=== PATIENT | male | born 1935 | race Caucasian/White ===

== ENCOUNTER 2020-06-16 09:47 | Outpatient (CLI) | payer MEDICARE, BC, SELFPAY ==
--- NOTE | ~2020-06-16 | XR_ITS ---
XR chest 2V DATE: 06/16/2020 10:03 INDICATION: Covid 19. History of smoking. TECHNIQUE: PA and lateral views COMPARISON: None FINDINGS: Mild bilateral lower lung infiltrate and/or atelectasis. Approximately 1 cm irregular opacity overlies the right upper lung. CT thorax is recommended. Mild bilateral apical capping. No pleural effusion or pulmonary vascular congestion or pneumothorax. Normal heart size. There is aortic calcification, ectasia and mild unfolding. 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 Degenerative change at the clavicular joints, greater on the right. Osteopenia. IMPRESSION: Approximately 1 cm irregular opacity overlies right upper lung; CT thorax is recommended. Bilateral lower lung infiltrate and/or atelectasis Dr. Orellana telephoned the report including possible right upper lung mass, and CT chest recommendation, to Amy, Electrolysist, on 06/16/2020 at 1015 hours. Reviewed, dictated and finalized at location A. GES SUPERVISOR IMPRESSION: Approximately 1 cm irregular opacity overlies right upper lung; CT thorax is recommended. Bilateral lower lung infiltrate and/or atelectasis Dr. Orellana telephoned the report including possible right upper lung mass, and CT chest recommendation, to Almita ReyesElectrolysist, on 06/16/2020 at 1015 hours .
== END 2020-06-16 09:48 | disposition home or self-care (01) ==
PROVIDERS: PCP Internal Medicine; Visit Provider Internal Medicine
DX: U07.1 COVID-19 (principal); R91.8 Other nonspecific abnormal finding of lung field
CPT/HCPCS: 71046

== ENCOUNTER 2020-07-06 09:08 | Outpatient (CLI) | payer MEDICARE, BC, SELFPAY ==
--- NOTE | ~2020-07-06 | XR_ITS ---
XR chest 2V DATE: 07/06/2020 09:24 INDICATION: Pneumonia TECHNIQUE: PA and lateral views COMPARISON: There are 2 2020 PA and lateral chest FINDINGS: There are increased patchy infiltrates throughout most of the right lung field and in the l eft lower lung field since 06/16/2020 consistent with worsening bilateral pneumonia. Normal heart size. No hilar or mediastinal enlargement. Aortic calcification. Diffuse osteopenia. Diffuse idiopathic skeletal hyperostosis of the thoracic spine. 13 pairs of ribs. IMPRESSION: Increased bilateral pulmonary infiltrates, right greater more extensive than left Reviewed, dictated and finalized at location A. WHAKARURUHAU IMPRESSION: Increased bilateral pulmonary infiltrates, right greater more exten sive than left
== END 2020-07-06 09:09 | disposition home or self-care (01) ==
LOC: ANHIMG 09:15
PROVIDERS: PCP Internal Medicine; Visit Provider Internal Medicine
DX: J18.9 Pneumonia, unspecified organism (principal); R91.8 Other nonspecific abnormal finding of lung field
CPT/HCPCS: 71046

== ENCOUNTER 2020-08-03 08:22 | Outpatient (CLI) | payer MEDICARE, BC, SELFPAY ==
--- NOTE | ~2020-08-03 | XR_ITS ---
XR chest 2V 08/03/2020 08:38 Indication: Follow-up pneumonia Procedure: 2 view chest Comparison: 07/06/2020 Findings: There is improving right upper and bilateral lower lobe pneumonia. No effusion. No pneumoth orax. Chronic apical pleural thickening/scarring. Heart size is normal. Impression: 1: Significant improvement of patchy bilateral pneumonia. Reviewed, dictated and finalized at location A. Impression: 1: Significant improvement of patchy bilateral pneumonia.
== END 2020-08-03 08:23 | disposition home or self-care (01) ==
LOC: ANHIMG 08:26
PROVIDERS: PCP Internal Medicine; Visit Provider Internal Medicine
DX: J18.9 Pneumonia, unspecified organism (principal)
CPT/HCPCS: 71046

== ENCOUNTER 2020-10-06 07:14 | Outpatient (CLI) | payer MEDICARE, BC, SELFPAY ==
--- NOTE | ~2020-10-06 | CT_ITS ---
EXAMINATION: CTA chest PE protocol DATE: 10/06/2020 07:44 INDICATION: History of COVID pneumonia, personal history of nicotine dependence TECHNIQUE: Computed tomography angiography (CTA) of the chest was performed with 100 mL Omnipaque-350 intravenous contrast timed to evaluate the pulmonary arteries. Coronal maximum intensity projection 3D-reconstructions were created by the technologist. The dose-length product (DLP) was 284.88 mGy-cm. Automated exposure control and iterative reconstruction technique were employed. COMPARISON: None. FINDINGS: The pulmonary arteries are well-opacified. There are small emboli in subsegmental branches of the left lower lobe. There is moderate emphysema. The lungs are free of focal airspace opacities. There is dependent atelectasis. No pathologically enlarged thoracic lymph nodes are identified. The h eart size is normal. There is calcified coronary artery atherosclerosis. There are bridging osteophyt es at multiple levels in the spine, consistent with diffuse idiopathic skeletal hyperostosis (DISH). Stones are present in the nondistended gallbladder. IMPRESSION: 1. Small pulmonary emboli in subsegmental branches of the left lower lobe. These findings were discus sed with Dr. Samaria Rosales MD at 0942 hours on 10/06/2020. Patient reportedly had a known diagnosis of left lower lobe pulmonary emboli in June 2020 and these likely represent resolving emboli. Reviewed, dictated and finalized at location A. IMPRESSION: 1. Small pulmonary emboli in subsegmental branches of the left lower lobe. Thes e findings were discussed with Dr. Samaria Rosales MD at 0942 hours on 10/07/19. Patient reportedly had a known diagnosis of left lower lobe pulmonary embol i in June 2020 and these likely represent resolving emboli.
[2020-10-06 07:39] LABS: Estimated Glomerular Filt Rate > 60
== END 2020-10-06 07:15 | disposition home or self-care (01) ==
PROVIDERS: PCP Internal Medicine; Visit Provider Internal Medicine
DX: I26.99 Other pulmonary embolism without acute cor pulmonale (principal)
CPT/HCPCS: 71275; Q9967

== ENCOUNTER 2021-10-22 10:34 | Outpatient (CLI) | payer MEDICARE, BC, SELFPAY ==
--- NOTE | ~2021-10-22 | CT_ITS ---
EXAMINATION: CT diagnostic chest wo con DATE: 10/22/2021 10:52 INDICATION: Solitary pulmonary nodule TECHNIQUE: Computed tomography (CT) of the chest was performed without intravenous contrast. Automate d exposure control and iterative reconstruction technique were employed. Exam dose: 124.58 mGy-cm to mary exam DLP. COMPARISON: 10/06/2020 CT pulmonary scan 08/03/2020 and 07/06/2020 2 view chest 06/16/2020 2 view chest FINDINGS: Bilateral apical pulmonary scarring., Mild to moderate emphysematous changes are noted, most prominent in the right upper lobe. No pulmonary infiltrate or consolidation or pulmonary mass lesion is detected. There is thoracic aortic, great vessel and coronary artery calcification. No thoracic aortic aneurysm . No hilar or mediastinal mass lesion or lymphadenopathy. Normal morphology of the adrenal glands. Gallstones are identified. 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 IMPRESSION: No pulmonary mass lesion is noted Mild to moderate emphysema Bilateral apical scarring Cholelithiasis Diffuse idiopathic skeletal hyperostosis of the thoracolumbar spine Reviewed, dictated and finalized at Location A. Reviewed, dictated and finalized at location A.
== END 2021-10-22 10:35 | disposition home or self-care (01) ==
LOC: ANHIMG 10:39
PROVIDERS: PCP Internal Medicine; Visit Provider Internal Medicine
DX: R91.1 Solitary pulmonary nodule (principal); J43.9 Emphysema, unspecified; K80.20 Calculus of gallbladder without cholecystitis without obstruction
CPT/HCPCS: 71250

== ENCOUNTER 2023-09-07 12:43 | Outpatient (CLI) | payer MEDICARE, BC, SELFPAY ==
--- NOTE | ~2023-09-07 | XR_ITS ---
EXAMINATION: XR lumbar spine 2-3V DATE: 09/07/2023 13:11 INDICATION: Low back pain. TECHNIQUE: 3 views of lumbar spine were obtained. COMPARISON: None. FINDINGS: There is 3 degrees levocurvature of lumbar spine. There is 4 mm retrolisthesis of L2 on L3. There is mild chronic height loss of L2 and L3 vertebral bodies. There is moderately decreased disc height at L2-L3 and L3-L4. There is interbody fusion at L4-L5 and L5-S1. There are bridging endplate osteophytes at multiple levels in the spine, consistent with diffuse idiopathic skeletal hyperostosis (DISH). There is multilevel severe facet joint hypertrophy. IMPRESSION: 1. Moderate lumbar spondylosis. 2. DISH. Reviewed, dictated and finalized at location E.
== END 2023-09-07 12:44 | disposition home or self-care (01) ==
LOC: ANHIMG 12:57
PROVIDERS: PCP Internal Medicine; Visit Provider Internal Medicine
DX: M47.896 Other spondylosis, lumbar region (principal); M48.16 Ankylosing hyperostosis [Forestier], lumbar region
CPT/HCPCS: 72100

== ENCOUNTER 2023-09-08 12:28 | Outpatient (CLI) | payer MEDICARE, BC, SELFPAY ==
--- NOTE | ~2023-09-08 | US_ITS ---
US renal BI 09/08/2023 13:09 Procedure: Realtime transabdominal ultrasound of the kidneys and bladder. Indication: Chronic kidney disease stage III Comparison: No prior studies for comparison. Findings: Renal echotexture is normal bilaterally without hydronephrosis, contour deforming mass or r enal calculus. There is a right renal cyst measuring 9 mm. The right kidney measures 9.8 cm and left kidney measures 9.4 cm. Bladder within normal limits. Impression: 1: Right renal cyst measuring 8 mm. Reviewed, dictated and finalized at location B. Impression: 1: Right renal cyst measuring 8 mm.
== END 2023-09-08 12:29 | disposition home or self-care (01) ==
LOC: ANHIMG 12:31
PROVIDERS: PCP Internal Medicine; Visit Provider Internal Medicine
DX: N18.30 Chronic kidney disease, stage 3 unspecified (principal); N28.1 Cyst of kidney, acquired
CPT/HCPCS: 76775

== ENCOUNTER 2024-06-26 12:00 | Outpatient (CLI) | payer MEDICARE, BC, SELFPAY ==
--- NOTE | ~2024-06-26 | US_ITS ---
EXAMINATION: US pelvic limited DATE: 06/26/2024 13:04 INDICATION: Benign prostatic hyperplasia TECHNIQUE: Multiple transabdominal sonographic images of the pelvis were obtained. COMPARISON: None. FINDINGS: Loculated prevoid bladder volume of 236 mL. There is a 10 x 9 x 7 mm hyperechoic nodule along the pos terior inferior bladder wall. Bilateral ureteral jets are visualized within the bladder on color Dopp ler. There are echogenic and shadowing coarse calcifications within the mildly enlarged prostate whic h measures 5.0 x 4.3 x 3.3 cm. IMPRESSION: 1. Prostatomegaly. 2. 10 x 9 x 7 mm nodule along the posterior inferior wall of the base of the bladder which could repr esent a bladder neoplasm or nodular protrusion of the prostate into the bladder volume. Consider cyst oscopy for further evaluation. Reviewed, dictated and finalized at location [facility] IMPRESSION: 1. Prostatomegaly. 2. 10 x 9 x 7 mm nodule along the posterior inferior wall of the base of the bl adder which could represent a bladder neoplasm or nodular protrusion of the pro state into the bladder volume. Consider cystoscopy for further evaluation.
--- OUTSIDE RECORDS SUMMARY | 2024-06-26 12:22 | XMS_ITS | CONTINUITY OF CARE DOCUMENT ---
Author Name jacquespaulettelorin acevedo Address Unknown Organization [facility] Address [address] [address] [place] [address] Phone [phone] Care Team Providers Care Neurological Physiotherapist Name Role Phone Alil DAVIDSON, Bridgette Unavailable JAIRO DAVIDSON, ADAM Hobbs Unavailable INSURANCE PROVIDERS Payer name Policy type / Coverage type Tayo red constitution party ID [facility] [id number] [place] [employer] Medicare [id number]
--- OUTSIDE RECORDS SUMMARY | 2024-06-26 12:22 | XMS_ITS | Data Portability ---
Author Organization [facility], [employer] Address [address] [place] [address] Care Team Providers Care Rn Informatics Name Role Phone SAMARIA GUERRERO Primary Care Provider [phone] FRANCIE CHAMPAGNE Wildlife Refuge Specialist LE GAR Legislative Director ALYSSA RASCON Roll Bucker Assessment Encounter Date Assessment Date Assessment LastModified by Organization Details LastModified Time 07/05/2023 07/05/2023 Patient presented for follow up. Studies ordered as below. Discussed plan with patient/careg trevor, who expressed understanding . Follow up as noted below. Not available 07/05/2023 09:14:21 03/05/2024 03/05/2024 Patient presented for follow up. Studies ordered as below. Discussed plan with patient/careg trevor, who expressed understanding . Follow up as noted below. Not available 03/05/2024 09:32:14 06/20/2024 06/20/2024 Patient presented for follow up. Studies ordered as below. Discussed plan with patient/careg trevor, who expressed understanding . Follow up as noted below. Not available 06/20/2024 16:53:06 Plan of Treatment Reminders Order Date Submit Date Provider Last Modified By Organization Details Last Modified Time Details Appointments ESTABLISH ED PATIENT 15 2024 10:00A M Samaria Guerrero MD Not available Not available Not available Lab CMP, serum or plasma 2023 024 [employer] [facility], [address], [place], [address], 07/13/2023 13:30:23 CBC w/ auto diff 2023 024 [facility], [address], [place], [address], 07/13/2023 13:30:24 HbA1c (hemoglob in A1c), blood 2023 024 [facility], [address], [place], [address], 07/13/2023 13:30:24 microalbu min/creat inine, mass ratio, urine 2023 024 [employer] [facility], [address], [place], [address], 07/13/2023 13:30:22 lipid panel, serum 2023 024 [employer] [employer] [facility], [address], [place], [address], 07/13/2023 13:30:21 iron + TIBC + ferritin, serum 2023 024 [employer] [employer] [facility], [address], [place], [address], 07/13/2023 13:30:20 CMP, serum or plasma 2023 024 [employer] [facility], [address], [place], [address], 10/12/2023 07:03:54 CBC w/ auto diff 2023 024 [employer] [employer] [facility] [facility], [address], [place], [address], 10/12/2023 07:03:55 vitamin B12 + folate, serum or blood 2023 024 [employer] [employer] [facility] [facility], [address], [place], [address], 10/12/2023 07:03:56 iron + TIBC + ferritin, serum 2023 024 [employer] [facility], [address], [place], [address], 10/12/2023 07:03:52 urinalysi s, dipstick 2023 024 [facility], [facility], [address], [place], [address], 03/05/2024 12:37:47 phosphoru s, serum or plasma 2024 025 [facility], [address], [place], [address], 06/20/2024 17:34:26 uric acid, serum or plasma 2024 025 [facility], [address], [place], [address], 06/20/2024 17:34:22 PTH (parathyr oid hormone), intact, serum or plasma 2024 025 [facility], [address], [place], [address], 06/20/2024 17:34:33 CMP, serum or plasma 2024 025 [facility], [address], [place], [address], 06/20/2024 17:34:31 CBC w/ auto diff 2024 025 [facility], [address], [place], [address], 06/20/2024 17:34:28 hemoglobi n A1c, QN, blood 2024 025 [employer] [facility], [address], [place], [address], 06/20/2024 17:34:29 microalbu min/creat inine, mass ratio, urine 2024 025 [facility], [address], [place], [address], 06/20/2024 17:34:32 C-peptide , serum 2024 025 [facility], [address], [place], [address], 06/20/2024 17:34:30 lipid panel w/ direct LDL, serum 2024 025 [facility], [address], [place], [address], 06/20/2024 17:34:26 TSH, serum or plasma 2024 025 [employer] [facility], [address], [place], [address], 06/20/2024 17:34:24 vitamin B12, serum 2024 025 [facility], [address] , [place], [address], 06/20/2024 17:34:23 Referral None recorded. Procedures None recorded. Surgeries None recorded. Imaging electroca rdiogram 2023 LOGAN [employer], [facility], [address], [place], [address], 12/14/2023 12:32:15 US, renal 2023 024 [facility] Patient Access Centralized Scheduling, Centralized Scheduling, [address] [place], [address], 03/12/2024 04:06:28 XR, lumbosacr al spine, 2 or 3 view 2023 024 [facility] Patient Access Centralized Scheduling, Centralized Scheduling, [address] [place], [address], 03/14/2024 14:00:58 US, duplex, carotid artery 2023 024 [facility], [address], [place], [address], 03/05/2024 13:38:58 US, bladder - pre and Post voiding 2024 025 [email or web address], [address], [address], [place], [address], 06/20/2024 17:40:37 Medication Orders Alaway 0.025 % (0.035 %) eye drops 2023 024 [id number] [address] [place], [address], 07/05/2023 09:32:09 pioglitaz one 15 mg tablet 2023 024 [id number] [address] [place], [address], 12/14/2023 10:30:37 tamsulosi n 0.4 mg capsule 2023 024 [id number] [address] [place], [address], 03/05/2024 10:29:58 finasteri de 5 mg tablet 2024 025 [id number] [address] [place], [address], 06/20/2024 17:34:10 Patient TargetsNo targets recorded. Patient Instructions Encounter Date Encounter Id Patient Instructions Last Modified By Organization Details Last Modified Time 07/05/2023 [id number] knee arthritis: care instructions mshenouda Not available 07/05/2023 09:32:06 medicines to avoid with kidney disease: care instructions mshenouda Not available 07/05/2023 09:32:06 high cholesterol : care instructions mshenouda Not available 07/05/2023 09:32:05 anemia: care instructions mshenouda Not available 07/05/2023 09:32:06 carotid stenosis : care instructions mshenouda Not available 07/05/2023 09:32:06 living will mshenouda Not available 06/16 09:27:20 10/04/2023 [id number] medicines to avoid with kidney disease: care instructions mshenouda Not available 10/04/2023 09:36:43 anemia: care instructions mshenouda Not available 10/04/2023 09:36:43 carotid stenosis : care instructions mshenouda Not available 10/04/2023 09:36:43 03/05/2024 [id number] back care and preventing injuries: care instructions mshenouda Not available 03/05/2024 10:29:55 getting back to normal after low back pain: care instructions mshenouda Not available 03/05/2024 10:29:55 learning about relief for back pain mshenouda Not available 03/05/2024 10:29:55 carotid stenosis : care instructions mshenouda Not available 03/05/2024 10:29:55 06/20/2024 [id number] arthritis: care instructions mshenouda Not available 06/20/2024 17:34:07 medicines to avoid with kidney disease: care instructions mshenouda Not available 06/20/2024 17:34:07 high cholesterol : care instructions mshenouda Not available 06/20/2024 17:34:06 carotid stenosis : care instructions mshenouda Not available 06/20/2024 17:34:07 Reason for Referral None Reported. Results Created Date Observation Date Name Description Value Unit Range Abnormal Flag Note LastModifiedBy Organization Detail LastModifiedTime 07/12/19 24 07/13/2023 IRON, TIBC AND DEIDRE TIN PANEL iron, total 77 mcg/d L 50-180 normal Not Available [facility] [address] [place], [address], 07/13/2023 13:30:20 07/12/19 24 07/13/2023 IRON, TIBC AND DEIDRE TIN PANEL iron binding capacity 367 mcg/d L_(ca lc) 250-42 5 normal Not Available [facility] [address] [place], [address], 07/13/2023 13:30:20 07/12/19 24 07/13/2023 IRON, TIBC AND DEIDRE TIN PANEL % saturation 21 %_(ca lc) 20-48 normal Not Available [address], [address], 07/13/2023 13:30:20 07/12/19 24 07/13/2023 IRON, TIBC AND DEIDRE TIN PANEL ferritin 6 NG/mL 24-380 low Not Available [address], [address], 07/13/2023 13:30:20 07/12/19 24 07/13/2023 LIPID PANEL WITH REFLE X TO DIREC T LDL cholesterol, total 99 mg/dL <200 normal Not Available [address], [address], 07/13/2023 13:30:21 07/12/19 24 07/13/2023 LIPID PANEL WITH REFLE X TO DIREC T LDL HDL cholesterol 51 mg/dL > or = 40 normal Not Available [address], [address], 07/13/2023 13:30:21 07/12/19 24 07/13/2023 LIPID PANEL WITH REFLE X TO DIREC T LDL triglyceride s 58 mg/dL <150 normal Not Available [address], [address], 07/13/2023 13:30:21 07/12/19 24 07/13/2023 LIPID PANEL WITH REFLE X TO DIREC T LDL LDL-choleste rol 35 mg/dL _(mickie c) normal Refer ence range : <100 Dinorah able range <100 mg/dL for prima ry preve ntion ; <70 mg/dL for patie nts with CHD or diabe tic patie nts with > or = 2 CHD risk facto rs. LDL-C is now calcu lated using the Nieves n-Hop kins calcu latdaniel n, which is a valid ated novel metho d kelly quigley r jessica acy than the Fried man equat ion in the estim ation of LDL-C . Nieves n SS et al. JAMIN. 2013; 310(1 9): 2061- 2068 (http ://ed ucati on.Leida tang TotSpotmelanie. com/f aq/FA Q164) Not Available [place] [address] [place], [address], 07/13/2023 13:30:21 07/12/19 24 07/13/2023 LIPID PANEL WITH REFLE X TO DIREC T LDL chol/HDLC ratio 1.9 (calc ) <5.0 normal Not Available [place] [address] [place] [place], [address], 07/13/2023 13:30:21 07/12/19 24 07/13/2023 LIPID PANEL WITH REFLE X TO DIREC T LDL non HDL cholesterol 48 mg/dL _(mickie c) <130 normal For patie nts with diabe yarely plus 1 major ASCVD risk facto r, treat ing to a non-H DL-C goal of <100 mg/dL (LDL- C of <70 mg/dL ) is consi dered a thera peuti c optio n. Not Available [address] [address] [place], [address], 07/13/2023 13:30:21 07/12/19 24 07/13/2023 ALBUM IN, RANDO M URINE W/CRE ATINI NE creatinine, random urine 70 mg/dL 20-320 normal Not Available [address] [address] [place], [address], 07/13/2023 13:30:22 07/12/19 24 07/13/2023 ALBUM IN, RANDO M URINE W/CRE ATINI NE albumin, urine 0.2 mg/dL see note: normal Refer ence Range : Refer ence Range Not estab lishe d Not Available [address] [address] [place], [address], 07/13/2023 13:30:22 07/12/19 24 07/13/2023 ALBUM IN, RANDO M URINE W/CRE ATINI NE albumin/crea tinine ratio, random urine 3 mcg/m g_cre at <30 normal The ADA defin es abnor malit ies in album in excre tion as follo ws: Album inuri a Categ ory Resul t (mcg/ mg creat inine ) Martina l to Mildl y incre ased <30 Moder ately incre ased 30-29 9 Sever cecilio incre ased > OR = 300 The ADA recom mends that at least two of three speci mens colle cted withi n a 3-6 month perio d be abnor mal befor e consi alverto g a patie nt to be withi n a diagn ostic categ ory. Not Available [address], [address], 07/13/2023 13:30:22 07/12/19 24 07/13/2023 COMPR EHENS TIFFANY METAB OLIC PANEL glucose 180 mg/dL 65-139 high Non-f astin g refer ence inter marielos Not Available [address], [address], 07/13/2023 13:30:23 07/12/19 24 07/13/2023 COMPR EHENS TIFFANY METAB OLIC PANEL urea nitrogen (BUN) 17 mg/dL 7-25 normal Not Available [address], [address], 07/13/2023 13:30:23 07/12/19 24 07/13/2023 COMPR EHENS TIFFANY METAB OLIC PANEL creatinine 1.12 mg/dL 0.70-1 .22 normal Not Available [address], [address], 07/13/2023 13:30:23 07/12/19 24 07/13/2023 COMPR EHENS TIFFANY METAB OLIC PANEL eGFR 64 mL/mi n/1.7 3m2 > or = 60 normal Not Available [address] [place], [address], 07/13/2023 13:30:23 07/12/19 24 07/13/2023 COMPR EHENS TIFFANY METAB OLIC PANEL BUN/creatini ne ratio SEE NOTE: (calc ) 6-22 Not Repor carrol: BUN and Creat inine are withi n refer ence range . Not Available [address], [address], 07/13/2023 13:30:23 07/12/19 24 07/13/2023 COMPR EHENS TIFFANY METAB OLIC PANEL sodium 139 mmol/ L 135-14 6 normal Not Available [address], [address], 07/13/2023 13:30:23 07/12/19 24 07/13/2023 COMPR EHENS TIFFANY METAB OLIC PANEL potassium 4.4 mmol/ L 3.5-5. 3 normal Not Available [address], [address], 07/13/2023 13:30:23 07/12/19 24 07/13/2023 COMPR EHENS TIFFANY METAB OLIC PANEL chloride 106 mmol/ L 98-110 normal Not Available [address], [address], 07/13/2023 13:30:23 07/12/19 24 07/13/2023 COMPR EHENS TIFFANY METAB OLIC PANEL carbon dioxide 26 mmol/ L 20-32 normal Not Available [address], [address], 07/13/2023 13:30:23 07/12/19 24 07/13/2023 COMPR EHENS TIFFANY METAB OLIC PANEL calcium 9.2 mg/dL 8.6-10 .3 normal Not Available [address], [address], 07/13/2023 13:30:23 07/12/19 24 07/13/2023 COMPR EHENS TIFFANY METAB OLIC PANEL protein, total 6.3 g/dL 6.1-8. 1 normal Not Available [address], [address], 07/13/2023 13:30:23 07/12/19 24 07/13/2023 COMPR EHENS TIFFANY METAB OLIC PANEL albumin 4.3 g/dL 3.6-5. 1 normal Not Available [address], [address], 07/13/2023 13:30:23 07/12/19 24 07/13/2023 COMPR EHENS TIFFANY METAB OLIC PANEL globulin 2.0 g/dL_ (calc ) 1.9-3. 7 normal Not Available [address], [address], 07/13/2023 13:30:23 07/12/19 24 07/13/2023 COMPR EHENS TIFFANY METAB OLIC PANEL albumin/glob ulin ratio 2.2 (calc ) 1.0-2. 5 normal Not Available [address], [address], 07/13/2023 13:30:23 07/12/19 24 07/13/2023 COMPR EHENS TIFFANY METAB OLIC PANEL bilirubin, total 0.5 mg/dL 0.2-1. 2 normal Not Available [address], [address], 07/13/2023 13:30:23 07/12/19 24 07/13/2023 COMPR EHENS TIFFANY METAB OLIC PANEL alkaline phosphatase 79 U/L 35-144 normal Not Available [address], [address], 07/13/2023 13:30:23 07/12/19 24 07/13/2023 COMPR EHENS TIFFANY METAB OLIC PANEL AST 11 U/L 10-35 normal Not Available [address], [address], 07/13/2023 13:30:23 07/12/19 24 07/13/2023 COMPR EHENS TIFFANY METAB OLIC PANEL ALT 10 U/L 9-46 normal Not Available [address], [address], 07/13/2023 13:30:23 07/12/19 24 07/13/2023 CBC (INCL UDES DIFF/ PLT) white blood cell count 5.7 thous and/u L 3.8-10 .8 normal Not Available [address], [address], 07/13/2023 13:30:24 07/12/19 24 07/13/2023 CBC (INCL UDES DIFF/ PLT) red blood cell count 4.69 caitlin on/uL 4.20-5 .80 normal Not Available [address], [address], 07/13/2023 13:30:24 07/12/19 24 07/13/2023 CBC (INCL UDES DIFF/ PLT) hemoglobin 9.4 g/dL 13.2-1 7.1 low Not Available [address], [address], 07/13/2023 13:30:24 07/12/19 24 07/13/2023 CBC (INCL UDES DIFF/ PLT) hematocrit 32.9 % 38.5-5 0.0 low Not Available [employer] [address], [address], 07/13/2023 13:30:24 07/12/19 24 07/13/2023 CBC (INCL UDES DIFF/ PLT) MCV 70.1 fL 80.0-1 00.0 low Not Available [address], [address], 07/13/2023 13:30:24 07/12/19 24 07/13/2023 CBC (INCL UDES DIFF/ PLT) MCH 20.0 pg 27.0-3 3.0 low Not Available [address], [address], 07/13/2023 13:30:24 07/12/19 24 07/13/2023 CBC (INCL UDES DIFF/ PLT) MCHC 28.6 g/dL 32.0-3 6.0 low Not Available [address], [address], 07/13/2023 13:30:24 07/12/19 24 07/13/2023 CBC (INCL UDES DIFF/ PLT) RDW 17.5 % 11.0-1 5.0 high Not Available [address], [address], 07/13/2023 13:30:24 07/12/19 24 07/13/2023 CBC (INCL UDES DIFF/ PLT) platelet count 193 thous and/u L 140-40 0 normal Not Available [address], [address], 07/13/2023 13:30:24 07/12/19 24 07/13/2023 CBC (INCL UDES DIFF/ PLT) MPV 9.3 fL 7.5-12 .5 normal Not Available [address], [address], 07/13/2023 13:30:24 07/12/19 24 07/13/2023 CBC (INCL UDES DIFF/ PLT) absolute neutrophils 3671 cells /uL 1500-7 800 normal Not Available [address], [address], 07/13/2023 13:30:24 07/12/19 24 07/13/2023 CBC (INCL UDES DIFF/ PLT) absolute lymphocytes 1226 cells /uL 850-39 00 normal Not Available [address], [address], 07/13/2023 13:30:24 07/12/19 24 07/13/2023 CBC (INCL UDES DIFF/ PLT) absolute monocytes 564 cells /uL 200-95 0 normal Not Available [address], [address], 07/13/2023 13:30:24 07/12/19 24 07/13/2023 CBC (INCL UDES DIFF/ PLT) absolute eosinophils 188 cells /uL 15-500 normal Not Available [address], [address], 07/13/2023 13:30:24 07/12/19 24 07/13/2023 CBC (INCL UDES DIFF/ PLT) absolute basophils 51 cells /uL 0-200 normal Not Available [address], [address], 07/13/2023 13:30:24 07/12/19 24 07/13/2023 CBC (INCL UDES DIFF/ PLT) neutrophils 64.4 % normal Not Available [address], [address], 07/13/2023 13:30:24 07/12/19 24 07/13/2023 CBC (INCL UDES DIFF/ PLT) lymphocytes 21.5 % normal Not Available [address], [address], 07/13/2023 13:30:24 07/12/19 24 07/13/2023 CBC (INCL UDES DIFF/ PLT) monocytes 9.9 % normal Not Available [address], [address], 07/13/2023 13:30:24 07/12/19 24 07/13/2023 CBC (INCL UDES DIFF/ PLT) eosinophils 3.3 % normal Not Available [facility] [address] [place], [address], 07/13/2023 13:30:24 07/12/19 24 07/13/2023 CBC (INCL UDES DIFF/ PLT) basophils 0.9 % normal Not Available [facility] [address], [place], [address], 07/13/2023 13:30:24 07/12/19 24 07/13/2023 HEMOG LOBIN A1C hemoglobin A1C 6.7 %_of_ total _HGB <5.7 high For someo ne witho ut known diabe yarely, a hemog lobin A1c value of 6.5% or great er indic ates that they may have diabe yarely and this shoul d be confi rmed with a follo w-up test. For someo ne with known diabe yarely, a value <7% indic ates that their diabe yarely is well contr olled and a value great er than or equal to 7% indic ates subop timal contr ol. A1c targe ts shoul d be indiv idual ized based on durat ion of diabe yarely, age, comor bid condi tions , and other consi derat ions. Curre ntly, no conse nsus exist s kathi bui use of hemog lobin A1c for diagn osis of diabe yarely for child justen. This test was perfo rmed on the [facility] [employer] c8000 platf orm. Pleas e be advis ed that [facility] will move hemog lobin A1c testi ng to the Aj platf orm soon. In gener al, direc t anika rison of the resul ts from diffe rent platf orms is not recom clarissa d. Not Available [facility] [address] , [place], [address], 07/13/2023 13:30:24 10/11/19 24 10/12/2023 IRON, TIBC AND DEIDRE TIN PANEL iron, total 79 mcg/d L 50-180 normal Not Available [address], [address], 10/12/2023 07:03:52 10/11/19 24 10/12/2023 IRON, TIBC AND DEIDRE TIN PANEL iron binding capacity 297 mcg/d L_(ca lc) 250-42 5 normal Not Available [address], [address], 10/12/2023 07:03:52 10/11/19 24 10/12/2023 IRON, TIBC AND DEIDRE TIN PANEL % saturation 27 %_(ca lc) 20-48 normal Not Available [address], [address], 10/12/2023 07:03:52 10/11/19 24 10/12/2023 IRON, TIBC AND DEIDRE TIN PANEL ferritin 51 NG/mL 24-380 normal Not Available [address], [address], 10/12/2023 07:03:52 10/11/19 24 10/12/2023 COMPR EHENS TIFFANY METAB OLIC PANEL glucose 189 mg/dL 65-99 high Fasti ng refer ence inter marielos For someo ne witho ut known diabe yarely, a gluco se value >125 mg/dL indic ates that they may have diabe yarely and this shoul d be confi rmed with a follo w-up test. Not Available [address], [address], 10/12/2023 07:03:54 10/11/19 24 10/12/2023 COMPR EHENS TIFFANY METAB OLIC PANEL urea nitrogen (BUN) 22 mg/dL 7-25 normal Not Available [address], [address], 10/12/2023 07:03:54 10/11/19 24 10/12/2023 COMPR EHENS TIFFANY METAB OLIC PANEL creatinine 0.98 mg/dL 0.70-1 .22 normal Not Available [address], [address], 10/12/2023 07:03:54 10/11/19 24 10/12/2023 COMPR EHENS TIFFANY METAB OLIC PANEL eGFR 75 mL/mi n/1.7 3m2 > or = 60 normal Not Available [address], [address], 10/12/2023 07:03:54 10/11/19 24 10/12/2023 COMPR EHENS TIFFANY METAB OLIC PANEL BUN/creatini ne ratio SEE NOTE: (calc ) 6-22 Not Repor carrol: BUN and Creat inine are withi n refer ence range . Not Available [address], [address], 10/12/2023 07:03:54 10/11/19 24 10/12/2023 COMPR EHENS TIFFANY METAB OLIC PANEL sodium 138 mmol/ L 135-14 6 normal Not Available [address], [address], 10/12/2023 07:03:54 10/11/19 24 10/12/2023 COMPR EHENS TIFFANY METAB OLIC PANEL potassium 4.3 mmol/ L 3.5-5. 3 normal Not Available [address], [address], 10/12/2023 07:03:54 10/11/19 24 10/12/2023 COMPR EHENS TIFFANY METAB OLIC PANEL chloride 105 mmol/ L 98-110 normal Not Available [address], [address], 10/12/2023 07:03:54 10/11/19 24 10/12/2023 COMPR EHENS TIFFANY METAB OLIC PANEL carbon dioxide 25 mmol/ L 20-32 normal Not Available [address], [address], 10/12/2023 07:03:54 10/11/19 24 10/12/2023 COMPR EHENS TIFFANY METAB OLIC PANEL calcium 9.7 mg/dL 8.6-10 .3 normal Not Available [address], [address], 10/12/2023 07:03:54 10/11/19 24 10/12/2023 COMPR EHENS TIFFANY METAB OLIC PANEL protein, total 6.6 g/dL 6.1-8. 1 normal Not Available [address], [address], 10/12/2023 07:03:54 10/11/19 24 10/12/2023 COMPR EHENS TIFFANY METAB OLIC PANEL albumin 4.7 g/dL 3.6-5. 1 normal Not Available [address], [place], [address], 10/12/2023 07:03:54 10/11/19 24 10/12/2023 COMPR EHENS TIFFANY METAB OLIC PANEL globulin 1.9 g/dL_ (calc ) 1.9-3. 7 normal Not Available [address], [address], 10/12/2023 07:03:54 10/11/19 24 10/12/2023 COMPR EHENS TIFFANY METAB OLIC PANEL albumin/glob ulin ratio 2.5 (calc ) 1.0-2. 5 normal Not Available [address], [address], 10/12/2023 07:03:54 10/11/19 24 10/12/2023 COMPR EHENS TIFFANY METAB OLIC PANEL bilirubin, total 0.6 mg/dL 0.2-1. 2 normal Not Available [address], [address], 10/12/2023 07:03:54 10/11/19 24 10/12/2023 COMPR EHENS TIFFANY METAB OLIC PANEL alkaline phosphatase 88 U/L 35-144 normal Not Available [facility] [address], [address], 10/12/2023 07:03:54 10/11/19 24 10/12/2023 COMPR EHENS TIFFANY METAB OLIC PANEL AST 13 U/L 10-35 normal Not Available [address], [address], 10/12/2023 07:03:54 10/11/19 24 10/12/2023 COMPR EHENS TIFFANY METAB OLIC PANEL ALT 16 U/L 9-46 normal Not Available [address], [address], 10/12/2023 07:03:54 10/11/19 24 10/12/2023 CBC (INCL UDES DIFF/ PLT) white blood cell count 6.4 thous and/u L 3.8-10 .8 normal Not Available [address], [address], 10/12/2023 07:03:55 10/11/19 24 10/12/2023 CBC (INCL UDES DIFF/ PLT) red blood cell count 5.04 caitlin on/uL 4.20-5 .80 normal Not Available [address], [address], 10/12/2023 07:03:55 10/11/19 24 10/12/2023 CBC (INCL UDES DIFF/ PLT) hemoglobin 14.7 g/dL 13.2-1 7.1 normal Not Available [address], [address], 10/12/2023 07:03:55 10/11/19 24 10/12/2023 CBC (INCL UDES DIFF/ PLT) hematocrit 45.1 % 38.5-5 0.0 normal Not Available [facility] [address], [address], 10/12/2023 07:03:55 10/11/19 24 10/12/2023 CBC (INCL UDES DIFF/ PLT) MCV 89.5 fL 80.0-1 00.0 normal Not Available [address], [address], 10/12/2023 07:03:55 10/11/19 24 10/12/2023 CBC (INCL UDES DIFF/ PLT) MCH 29.2 pg 27.0-3 3.0 normal Not Available [address], [address], 10/12/2023 07:03:55 10/11/19 24 10/12/2023 CBC (INCL UDES DIFF/ PLT) MCHC 32.6 g/dL 32.0-3 6.0 normal Not Available [address], [address], 10/12/2023 07:03:55 10/11/19 24 10/12/2023 CBC (INCL UDES DIFF/ PLT) RDW 17.3 % 11.0-1 5.0 high Not Available [address], [address], 10/12/2023 07:03:55 10/11/19 24 10/12/2023 CBC (INCL UDES DIFF/ PLT) platelet count 201 thous and/u L 140-40 0 normal Not Available [facility] [address], [address], 10/12/2023 07:03:55 10/11/19 24 10/12/2023 CBC (INCL UDES DIFF/ PLT) MPV 9.4 fL 7.5-12 .5 normal Not Available [facility] [address], [address], 10/12/2023 07:03:55 10/11/19 24 10/12/2023 CBC (INCL UDES DIFF/ PLT) absolute neutrophils 4448 cells /uL 1500-7 800 normal Not Available [address], [address], 10/12/2023 07:03:55 10/11/19 24 10/12/2023 CBC (INCL UDES DIFF/ PLT) absolute lymphocytes 1280 cells /uL 850-39 00 normal Not Available [address], [address], 10/12/2023 07:03:55 10/11/19 24 10/12/2023 CBC (INCL UDES DIFF/ PLT) absolute monocytes 544 cells /uL 200-95 0 normal Not Available [address], [address], 10/12/2023 07:03:55 10/11/19 24 10/12/2023 CBC (INCL UDES DIFF/ PLT) absolute eosinophils 90 cells /uL 15-500 normal Not Available [address], [address], 10/12/2023 07:03:55 10/11/19 24 10/12/2023 CBC (INCL UDES DIFF/ PLT) absolute basophils 38 cells /uL 0-200 normal Not Available [address], [address], 10/12/2023 07:03:55 10/11/19 24 10/12/2023 CBC (INCL UDES DIFF/ PLT) neutrophils 69.5 % normal Not Available [address], [address], 10/12/2023 07:03:55 10/11/19 24 10/12/2023 CBC (INCL UDES DIFF/ PLT) lymphocytes 20.0 % normal Not Available [address], [address], 10/12/2023 07:03:55 10/11/19 24 10/12/2023 CBC (INCL UDES DIFF/ PLT) monocytes 8.5 % normal Not Available [address], [address], 10/12/2023 07:03:55 10/11/19 24 10/12/2023 CBC (INCL UDES DIFF/ PLT) eosinophils 1.4 % normal Not Available [address], [address], 10/12/2023 07:03:55 10/11/19 24 10/12/2023 CBC (INCL UDES DIFF/ PLT) basophils 0.6 % normal Not Available [address], [address], 10/12/2023 07:03:55 10/11/19 24 10/12/2023 VITAM IN B12/F OLATE , SERUM PANEL vitamin B12 498 pg/mL 200-11 00 normal Not Available [address], [address], 10/12/2023 07:03:55 10/11/19 24 10/12/2023 VITAM IN B12/F OLATE , SERUM PANEL folate, serum >24.0 NG/mL normal Refer ence Range Low: <3.4 Borde rline : 3.4-5 .4 Martina l: >5.4 Not Available [address], [address], 10/12/2023 07:03:55 10/24/19 24 10/25/2023 C-PEP TIDE C-peptide 1.86 NG/mL 0.80-3 .85 normal Not Available [address], [address], 10/25/2023 06:37:43 10/24/19 24 10/25/2023 HEMOG LOBIN A1C hemoglobin A1C 7.4 %_of_ total _HGB <5.7 high For someo ne witho ut known diabe yarely, a hemog lobin A1c value of 6.5% or great er indic ates that they may have diabe yarely and this shoul d be confi rmed with a follo w-up test. For someo ne with known diabe yarely, a value <7% indic ates that their diabe yarely is well contr olled and a value great er than or equal to 7% indic ates subop timal contr ol. A1c targe ts shoul d be indiv idual ized based on durat ion of diabe yarely, age, comor bid condi tions , and other consi derat ions. Curre ntly, no conse nsus exist s regar ding use of hemog lobin A1c for diagn osis of diabe yarely for child justen. This test was perfo rmed on the [facility] c[facility] platf orm. Effec tive , a méndez e in test platf orms from the [facility] to the [facility] c[facility] may have shift ed HbA1c resul ts anika red to histo rical resul ts. Based on labor atory valid ation testi ng condu cted at [facility] , the Aj platf orm relat tiffany to the [employer] platf orm had an avera ge incre ase in HbA1c value of < or = 0.3%. This diffe rence is withi n accep carrol varia bilit y estab lishe d by the [facility] hemog lobin Stand ardiz ation Progr am. Note that not all indiv idual s will have had a shift in their resul ts and direc t anika rison s betwe en histo rical and curre nt resul ts for testi ng condu cted on diffe rent platf orms is not recom clarissa d. Not Available [facility] [address], [place], [address], 10/25/2023 06:37:45 03/05/20 24 03/05/2024 urina lysis , dipst ick Leukocytes Negati ve Not Available [facility] [address], [place], [address], 03/05/2024 10:28:54 03/05/2003/05/2024 urina lysis , dipst ick Nitrite negati ve Not Available [facility] [address], [place], [address], 03/05/2024 10:28:54 03/05/2003/05/2024 urina lysis , dipst ick Urobilinogen .2 Not Available [facility] [address] [facility] [address], [place], [address], 03/05/2024 10:28:54 03/05/2003/05/2024 urina lysis , dipst ick Protein Trace Not Available [facility] [address] [facility] [address], [place], [address], 03/05/2024 10:28:54 03/05/2003/05/2024 urina lysis , dipst ick pH 5.0 Not Available [facility] [address] [facility] [address], [place], [address], 03/05/2024 10:28:54 03/05/2003/05/2024 urina lysis , dipst ick Blood Negati ve Not Available [facility] [address] [facility] [address], [place], [address], 03/05/2024 10:28:54 03/05/2003/05/2024 urina lysis , dipst ick Specific [place] 1.010 Not Available [facility] [address], [place], [address], 03/05/2024 10:28:54 03/05/20 24 03/05/2024 urina lysis , dipst ick Ketone Negati ve Not Available [facility], [facility] [address], [place], [address], 03/05/2024 10:28:54 03/05/2003/05/2024 urina lysis , dipst ick Bilirubin Negati ve Not Available [facility], [facility] [address], [place], [address], 03/05/2024 10:28:54 03/05/2003/05/2024 urina lysis , dipst ick Glucose 2000+ Not Available [facility], [facility] [address], [place], [address], 03/05/2024 10:28:54 03/05/2003/05/2024 urina lysis , dipst ick Appearance Cloudy Not Available [facility], [facility] [address], [place], [address], 03/05/2024 10:28:54 03/05/2003/05/2024 urina lysis , dipst ick Color Yellow Not Available [facility], [facility] [address], [place], [address], 03/05/2024 10:28:54 09/08/19 24 09/07/2023 XR, lumbo sacra l spine , 2 or 3 view No observ ation record ed. [address], [place], [address], 10/04/2023 09:28:27 09/11/19 24 09/08/2023 US, renal No observ ation record ed. [address], [place], [address], 10/04/2023 09:28:27 12/14/19 24 12/14/2023 elect jose washburn am No observ ation record ed. [facility], [facility] [address], [place], [address], 03/05/2024 10:16:22 12/14/19 24 12/14/2023 elect jose washburn am No observ ation record ed. [facility], [facility] [address], [place], [address], 03/05/2024 10:16:22 03/05/20 24 03/05/2024 US, duple x, carot id arter y No observ ation record ed. [facility], [facility] [address], [place], [address], 06/20/2024 17:30:16 03/14/2003/12/2024 US, renal No observ ation record ed. [facility] [address] [place] [address], [address], 06/20/2024 17:30:15 03/14/2003/12/2024 XR, lumbo sacra l spine , 2 or 3 view No observ ation record ed. [facility] [address] [place] [address], [address], 06/20/2024 17:30:15 04/15/2003/07/2024 US, duple x, carot id arter y No observ ation record ed. [facility], [facility] [address], [place], [address], 06/20/2024 17:30:15 Result Notes None recorded. 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 956172698 Active 2023 Samaria Guerrero MD [address], [place], [address], [place] [facility] 10:21:43 Osteoarth ritis 323614170 Active 2024 Samaria Guerrero MD [address], [place], [address], [place] [facility] 5 17:26:31 Carotid atheroscl erosis 674266369 Active 2016 Samaria Guerrero MD [address], [place], [address], [place] [facility] 7 11:38:27 Primary erectile dysfuncti on 334704716 [facility] 14:15:16 Osteoarth ritis of knee 020053399 Active 2017 Samaria Guerrero MD [address], [place], [address], [place] [facility] 8 16:46:19 Chronic kidney disease stage 3 492958997 Active 2017 Samaria Guerrero MD [address], [place], [address], [facility] 8 16:48:39 Pain of left shoulder joint 015470135789 [address] Active 2018 Samaria Guerrero MD [address], [place], [address], [place] [facility] 9 16:53:38 COVID-19 059290850 Completed 202009/17/2020 Samaria Guerrero MD [address], [place], [address], [place] [facility] 12:35:24 Solitary nodule of lung 414438655 Active 2020 Samaria Guerrero MD [address], [place], [address], [place] [facility] 19:48:33 Anemia 927603309 Active 2020 Samaria Guerrero MD [address], [place], [address], [facility] 1 11:25:57 History of SARS-CoV- 2 427935305711 007995 Active 2021 Samaria Guerrero MD [address], [place], [address], [facility] 2 09:21:25 Long-term drug therapy Active 2021 Samaria Guerrero MD [address], [place], [address], [facility] 2 09:24:43 Body mass index 20-24 - normal 337308315 Active 2021 Samaria Guerrero MD [address], [place], [address], [facility] 2 09:28:23 Carotid artery stenosis 68085364 Active 2021 Samaria Guerrero MD [address], [place], [address], [facility] 2 23:46:43 Serum vitamin B12 borderlin e low 182689749 Active 2022 Samaria Guerrero MD [address], [place], [address], [facility] 3 15:44:11 Serum vitamin B12 below reference range 849030899 Active 2022 Samaria Guerrero MD [address], [place], [address], [facility] 3 09:50:28 Coronary arteriosc lerosis 21545481 [facility] 09:40:08 Diabetes mellitus 06540250 [facility] 09:40:14 Benign hypertens ion 13324795 Active [facility] 09:40:21 Hyperlipi demia 62034214 Active Charisse [facility] 6 09:40:28 Low back pain 413385061 Active 2023 Samaria Guerrero MD [address], [place], [address], [facility] 4 20:27:07 Problem Notes None recorded. Procedures Surgical History Date Name Laterality Status Provider Name and Address Organization Details Recorded Time 5 Diabetic Foot Exam completed Samaria Guerrero MD [address], [place], [address], [facility] 06/20/2024 17:31:29 4 Diabetic Foot Exam completed Samaria Guerrero MD [address], [place], [address], [facility] 03/05/2024 10:25:29 4 Diabetic Foot Exam completed Samaria Guerrero MD [address], [place], [address], [facility] 10/04/2023 09:33:41 4 Diabetic Foot Exam completed Samaria Guerrero MD [address], [place], [address], [facility] 07/05/2023 09:26:53 3 Diabetic Foot Exam completed Samaria Guerrero MD [address], [place], [address], [facility] 01/04/2023 09:54:27 2 Diabetic Foot Exam completed Samaria Guerrero MD [address], [place], [address], [facility] 12/27/2021 09:34:25 2 Diabetic Foot Exam completed Samaria Guerrero MD [address], [place], [address], [facility] 06/30/2021 09:24:14 0 Diabetic Foot Exam completed Samaria Guerrero MD [address], [place], [address], [place] [facility] 12/16/2019 11:49:58 0 Diabetic Foot Exam completed Samaria Guerrero MD [address], [place], [address], [place] [facility] 06/20/2019 16:10:17 9 Diabetic Foot Exam completed Samaria Guerrero MD [address], [place], [address], [place] [facility] 03/20/2019 16:58:45 4 Colonoscopy completed Charisse Higgins [facility] 08/09/2017 11:36:50 Imaging Results Imaging Date Name Status LastModified by Organization Details LastModified Time 09/07/2023 XR, lumbosacral spine, 2 or 3 view completed [address], [place], [address], 10/04/2023 09:28:27 09/08/2023 US, renal completed [address], [place], [address], 10/04/2023 09:28:27 12/14/2023 electrocardiogram completed [facility], [facility] [address], [place], [address], 03/05/2024 10:16:22 12/14/2023 electrocardiogram completed [facility], [facility] [address], [place], [address], 03/05/2024 10:16:22 03/05/2024 US, duplex, carotid artery completed [facility], [facility] [address], [place], [address], 06/20/2024 17:30:16 03/12/2024 US, renal completed [address], [address], 06/20/2024 17:30:15 03/12/2024 XR, lumbosacral spine, 2 or 3 view completed [facility] [address] , [place], [address], 06/20/2024 17:30:15 03/07/2024 US, duplex, carotid artery completed [facility], [facility] [address], [place], [address], 06/20/2024 17:30:15 Procedure Notes None recorded. Medical Equipment None Reported. Allergies No known drug allergies Medications Name Sig Start Date Stop Date Status Note LastModified by Organization Details LastModified Time amoxicillin 500 mg capsule Take 1 capsule every 12 hours by oral route for 10 days. 08/09 completed Not Available Not Available Not Available pioglitazon e 15 mg tablet Take 1 tablet every day by oral route in the morning. 2023 active Not Available Not Available Not Avai lable atorvastati n 40 mg tablet TAKE 1 TABLET BY MOUTH EVERYDAY AT BEDTIME active Not Available Not Available No t Available albuterol sulfate 2.5 mg/3 mL (0.083 %) solution for nebulizatio n INHALE 3ML BY NEBULIZAT ION ROUTE 3 TIMES A DAY NEEDED 07/02 completed Not Available Not Available Not Available trazodone 50 mg tablet TAKE 1 TABLET BY MOUTH EVERYDAY AT BEDTIME active Not Available Not Available No t Available polysacchar bala iron complex 150 mg iron capsule TAKE 1 CAPSULE BY MOUTH EVERY OTHER DAY 2023 active Not Available Not Available Not Avai lable dexamethaso ne 6 mg tablet TAKE 1 TABLET BY MOUTH EVERY DAY STARTING 2 07/02 completed Not Available Not Available Not Available Viagra 50 mg tablet Take 1 tablet every day by oral route. 05/03 completed Not Available Not Available Not Available acetaminoph en 300 mg-codeine 30 mg tablet TAKE 1 TABLET BY MOUTH EVERY 4 HOURS NEEDED FOR PAIN active Not Available Not Available No t Available clopidogrel 75 mg tablet 02/09 completed Not Available Not Available Not Available aspirin 81 mg tablet,binu yed release Take 1 tablet every day by oral route. active Not Available Not Available No t Available tramadol 50 mg tablet TAKE 1 TABLET BY MOUTH EVERY 8 HOURS NEEDED active Not Available Not Available No t Available sildenafil 100 mg tablet TAKE 1 TABLET BY MOUTH EVERY DAY NEEDED FOR ERECTILE DYSFUNCTI ON active Not Available Not Available No t Available tamsulosin 0.4 mg capsule TAKE 1 CAPSULE BY MOUTH EVERYDAY AT BEDTIME active Not Available Not Available No t Available baclofen 10 mg tablet Take 1 tablet 3 times a day by oral route as needed. 03/26 completed Not Available Not Available Not Available dexamethaso ne 2 mg tablet Take 1 tablet twice a day by oral route for 4 days. 07/13 completed Not Available Not Available Not Available metformin 1,000 mg tablet TAKE 1 TABLET BY MOUTH TWICE A DAY active Not Available Not Available No t Available tobramycin 0.3 % eye drops 08/09 completed Not Available Not Available Not Available folic acid 1 mg tablet TAKE 1 TABLET BY MOUTH EVERY DAY 2024 active Not Available Not Available Not Avai lable metoprolol succinate ER 25 mg tablet,exte nded release 24 hr TAKE 1/2 TABLET BY MOUTH DAILY active Not Available Not Available No t Available levofloxaci n 500 mg tablet Take 1 tablet every 24 hours by oral route. 07/13 completed Not Available Not Available Not Available albuterol sulfate HFA 90 mcg/actuati on aerosol inhaler INHALE 2 PUFFS BY MOUTH EVERY 8 HOURS NEEDED 12/28 completed Not Available Not Available Not Available lisinopril 2.5 mg tablet TAKE 1 TABLET BY MOUTH EVERY DAY 12/01 completed Not Available Not Available Not Available finasteride 5 mg tablet Take 1 tablet every day by oral route. 2024 active Not Available Not Available Not Avai lable Tylenol Extra Strength 500 mg tablet Take 1 tablet every 8 hours by oral route around the clock for 30 days. 2019 active Not Available Not Available Not Avai lable sildenafil (pulmonary hypertensio n) 20 mg tablet active Not Available Not Available Not Available Alaway 0.025 % (0.035 %) eye drops INSTILL 1 DROP INTO AFFECTED EYE(S) BY OPHTHALMI C ROUTE 2 TIMES PER DAY 2023 active Not Available Not Available Not Avai lable Vitamin B-12 5,[address] 1 TABLET BY SUBLINGUA L ROUTE EVERY DAY 2023 active Not Available Not Available Not Avai lable Xarelto 10 mg tablet TAKE 1 TABLET BY MOUTH EVERY DAY 07/02 completed Not Available Not Available Not Available InnoSpire Elegance device active Not Available Not Available Not Available Lotemax 0.5 % eye gel drops 08/09 completed Not Available Not Available Not Available Eliquis 5 mg tablet Take 1 tablet twice a day by oral route. 12/28 completed Not Available Not Available Not Available Farxiga 10 mg tablet TAKE 1 TABLET EVERY DAY BY ORAL ROUTE IN THE MORNING. active Not Available Not Available No t Available Farxiga 5 mg tablet TAKE 1 TABLET BY MOUTH EVERY DAY IN THE MORNING 10/24 completed Not Available Not Available Not Available BinaxNOW COVID-19 Ag Self Test kit Use as Directed on the Package 04/14 completed Not Available Not Available Not Available Phospho-Tri n K500 500 mg soluble tablet TAKE 1 TABLET BY MOUTH IN THE MORNING AND AT BEDTIME FOR 30 DAYS. active Not Available Not Available No t Available Vitals Date Recorded Body height Body mass index (BMI) Body weight Body temperature Respiratory rate Heart rate Systolic blood pressure Diastolic blood pressure Provider Name and Address Organization Details Last Updated DateTime 4 170.18 cm 24.3 kg/m2 90334.8 2 g 97.4 [degF] 16 /min 68 /min 134 mm[Hg] 58 mm[Hg] [facility] 09:16:44 Date Recorded Body height Heart rate Respiratory rate Body temperature Body mass index (BMI) Body weight Systolic blood pressure Diastolic blood pressure Provider Name and Address Organization Details Last Updated DateTime 4 170.18 cm 75 /min 16 /min 97.8 [degF] 24.4 kg/m2 33090.4 1 g 130 mm[Hg] 62 mm[Hg] Debby Real [facility] 4 09:14:00 Date Recorded Body height Body mass index (BMI) Body weight Body temperature Heart rate Respiratory rate Systolic blood pressure Diastolic blood pressure Provider Name and Address Organization Details Last Updated DateTime 4 170.18 cm 24.6 kg/m2 49179 g 97.7 [degF] 65 /min 16 /min 121 mm[Hg] 65 mm[Hg] Debby Addie [facility] 4 10:02:31 Date Recorded Body height Body temperature Body mass index (BMI) Body weight Respiratory rate Heart rate Systolic blood pressure Diastolic blood pressure Provider Name and Address Organization Details Last Updated DateTime 4 170.18 cm 96.5 [degF] 23.5 kg/m2 82496.8 6 g 16 /min 84 /min 130 mm[Hg] 62 mm[Hg] Debby Addie [facility] 4 09:34:32 Date Recorded Body height Body mass index (BMI) Body weight Body temperature Respiratory rate Heart rate Provider Name and Address Organization Details Last Updated DateTime 5 170.18 cm 23.8 kg/m2 55545.0 4 g 97.8 [degF] 16 /min 62 /min Debby Real [facility] 5 16:55:56 Date Recorded Systolic blood pressure Diastolic blood pressure Provider Name and Address Organization Details Last Updated DateTime 06/20/2024 132 mm[Hg] 68 mm[Hg] Samaria Guerrero MD [address] [place] [address] [address], [place], [address], [facility] 06/20/2024 17:24:07 Social History Question Answer Notes LastModified by Organizat ion Details LastModified Time Tobacco Smoking Status Former Smoker Charisse mcneil, [facility] 10/07/2015 09:38:59 What Is Your Level Of Alcohol Consumption? None [email or web address] Information not available 10/07/2015 What Is Your Level Of Caffeine Consumption? 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 No Information not available 12/16/2019 In The 14 Days Before Symptom Onset, Have You Had Close Contact With A Person Who Is Under Investigation For COVID-19 While That Person Was Ill? No Information not available 12/16/2019 Have You Been To An Area Known To Be High Risk For COVID-19? No Information not available 12/16/2019 Have You Directly Handled Bats, Rodents, Or Primates From Ebola Endemic Areas? No Information not available 09/17/2020 Have You Processed Blood Or Body Fluids From An Ebola Virus Disease Patient Without Appropriate PPE? No Information not available 09/17/2020 Have You Had Household Contact With An Ebola Virus Disease Patient? No Information not available 09/17/2020 Have You Had Direct Contact With A Body In An Ebola-affected Area Without Appropriate PPE? No Information not available 09/17/2020 Have You Had Percutaneous (e.g. Needle Stick) Or Mucous Membrane Exposure To Blood Or Body Fluids From An Ebola Virus Disease Patient? No Information not available 09/17/2020 Have You Had Other Close Contact With An Ebola Virus Disease Patient In Health Care Facilities Or Community Settings? No Information not available 09/17/2020 Do You Reside In Or Have You Traveled To An Area Where Ebola Virus Transmission Is Active? No Information not available 09/17/2020 Are There Any Guns Present In Your Home? No Information not available 09/17/2020 High Number Of Sexual Partners No Information not available 09/17/2020 History Of Inconsistent/no Condom Use No Information not available 09/17/2020 Live Alone Or With Others? With Others Information not available 10/07/2015 Marital Status Informatio n not available 07/13/2020 What Was The Date Of Your Most Recent Tobacco Screening? 09/19/2018 Information not available 12/05/2018 Mother With HIV? No Informat ion not available 09/17/2020 Performs Monthly Self-breast Exam? No Information no t available 09/17/2020 Seat Belts Used Routinely Yes Information not available 09/17/2020 Sexual Partner Has HIV? No Information not available 09/17/2020 Sexual Partner Uses IV Drugs? No Information not available 09/17/2020 Smoke Alarm In Home Yes Information not available 09/17/2020 Do You Use Sunscreen Routinely? No Information not available 09/17/2020 Have You Used IV Drugs? No Information not available 09/17/2020 Sex: Unknown Functional Status Question Answer Note LastModified by Organization D etails LastModified Time Are you able to care for yourself? Yes Information n ot available 09/17/2020 Mental Status None recorded. Family History Relationship Description Onset Age of this Age Resolved Age Notes LastModified by Organization Details LastModified Time Father Coronary arterioscler osis 77 [email or web address] Not available 2015 09:39:36 Father Cerebrovascu lar accident [email or web address] Not available 09:39:45 Brother Coronary arterioscler osis [email or web address] Not available 2015 09:39:36 Mother Malignant tumor of breast 42 [email or web address] Not available 2015 09:39:57 Medical History Condition Response Coronary Artery Disease N Other N Gout N Kidney Stones N Blood Diseases N Hyperthyroidism N Breast Cancer N Blood Transfusion N Hypothyroidism N Depression N COPD N Lung Disease N Defects or Inherited Disease N Developmental or Behavioral Disorders N Breast Problem N Difficulty Swallowing N Anesthesia Complications N Meniere's disease N Anxiety Disorder N Muscle, Joint, or Bone Problems N Obesity N Vision or Eye Problems N Arthritis N Polyps N Infertility N Mental Disorder N Cancer N Varicosities N Stroke N Endometriosis N Bladder or Kidney Problems N High Cholesterol N Liver Disease N Headaches N Fibromyalgia N Kidney Disease N Allergies/Hayfever N Heart Problems N Ear or Hearing Problems N Hospitalizations N Thyroid Problems N GI Problems N ADD/ADHD N Skin Problems N Eating Disorder N Anemia N MRSA exposure N Constipation N Mental Illness N Ovarian Cancer N Diabetes N Bedwetting N Seizures/Epilepsy N Tuberculosis N AIDS/HIV N Congestive Heart Failure (CHF) N Eczema N Diverticulitis N Abuse/Domestic Violence N Asthma N Reflux/GERD N Hepatitis N Heart Disease N Pulmonary Embolism N Chronic Ear Infections N Pre-Eclampsia N Hypertension N Chicken Pox N Autism Spectrum Disorder (ASD) N Osteoporosis N Thrombophilias N Immunizations Vaccine Type Date Status Note Provider Name and Address Organization Details Recorded Time SARS-COV-2 (COVID-19) vaccine, UNSPECIFIED 021 completed Samaria Guerrero MD [address], [place], [address], [facility] 09/17/2020 12:43:41 pneumococcal polysaccharide PPV23 005 completed Not Available [facility] 06/26/2020 17:35:30 COVID-19, mRNA, LNP-S, PF, 30 mcg/0.3 mL dose 021 completed Samaria Guerrero MD [address], [place], [address], [facility] 06/30/2021 09:20:59 Influenza, high-dose, trivalent, PF 019 cancelled patient objection Not Available [facility] 06/01/2019 02:28:09 Influenza, high-dose, trivalent, PF 020 cancelled patient objection Samaria Guerrero MD [address], [place], [address], [facility] 06/20/2019 16:18:58 Pneumococcal conjugate PCV 13 020 cancelled patient objection Samaria Guerrero MD [address], [place], [address], [facility] 06/20/2019 16:18:58 Past Encounters Encounter ID Performer Location Encounter Start Date Encounter Closed Date Diagnosis/Indication Diagnosis SNOMED-CT Code Diagnosis ICD10 Code Diagnosis Note [id number] Samaria Guerrero MD [facility], [facility] [address] [place] [address] 10/07/2015 11:53:17 10/07/2015 14:04:38 Low back pain 014980203 M54.5 [id number] Samaria Guerrero MD [facility], [facility] [address] [place] [address] 02/10/2016 11:19:21 02/10/2016 12:14:17 Benign hypertension 28009615 I10 Coronary arteriosclerosis 06811267 I25.10 Hyperlipidemia 08067396 E78.5 Diabetes mellitus 310515 09 E11.9 Active or passive immunization 032464135 Z23 refuse flu Primary er ectile dysfunction 008727381 N52.9 [id number] [place], ANP-BC [facility], [facility] [address] [place] [address] 05/19/2016 10:52:08 05/19/2016 11:35:39 Upper respiratory infection 50023509 J06.9 Influenza 3980539 J11.1 Past the 72 hour opportunit y to begin Tamiflu. Symtoms are improving [id number] Samaria Guerrero MD [facility], [facility] [address] [place] [address] 08/09/2016 10:59:56 08/09/2016 12:15:42 Benign hypertension 95937115 I10 Coronary arteriosclerosis 97648666 I25.10 Hyperlipidemia 56245458 E78.5 Diabetes mellitus 522922 09 E11.9 Active or passive immunization 491360843 Z23 refuse flu [id number] Samaria Guerrero MD [facility], [facility] [address] [place] [address] 02/09/2017 11:05:16 02/09/2017 12:00:51 Adult health examination 249219310 Z00.00 Benign hypertension 1072 5009 I10 good control Coronary arteriosclerosis 32484026 I25.10 just have stress ECHO , good Hyperlipidemia 72463508 E78.5 last LDL @ goal 02/2016 Diabetes mellitus 305007 09 E11.9 Carotid atherosclerosis 123847566 I70.8 per pt had U/S 11/2016 with cardiology Screening for malignant neoplasm of colon 938562735 Z12.11 last C scope 11/11/13 , good till 2018 Active or passive immunization 161440873 Z23 refuse flu , pneumonia Primary er ectile dysfunction 963237448 N52.9 [id number] CAITLYN SIMSN [facility], [facility] [address] [place] [address] 05/31/2017 14:16:37 05/31/2017 15:09:55 Thoracic back pain 562369951 M54.6 x 1 monthno injuryno saddle anesthesia Benign hypertension 1072 5009 I10 Carotid atherosclerosis 466256838 I65.23 <50% bil11/2012 Hyperlipidemia 12040504 E78.5 LDL 51 02/2017app t with Dr. Rascon - cardiologlance verma have lipids drawn at that time Diabetes mellitus 562426 09 E11.9 [id number] Samaria Guerrero MD [facility], [facility] [address] [place] [address] 08/09/2017 11:31:15 08/09/2017 12:49:17 Diabetes mellitus 11422443 E11.9 Hyperlipidemia 33244031 E78.5 last LDL @ goal 02/2017 Coronary arteriosclerosis 86445430 I25.10 just have stress ECHO , good Benign hypertension 1072 5009 I10 good control Carotid atherosclerosis 631977099 I70.8 per pt had U/S 11/2016 with cardiology Screening for malignant neoplasm of colon 073908289 Z12.11 last C scope 11/11/13 , good till 2019 Active or passive immunization 542522662 Z23 refuse flu , pneumonia [id number] Samaria Guerrero MD [facility], [facility] [address] [place] [address] 03/12/2018 16:26:33 03/12/2018 17:00:20 Diabetes mellitus 25437208 E11.9 Hyperlipidemia 77347062 E78.5 last LDL @ goal 02/2018 Coronary arteriosclerosis 11215556 I25.10 sees cardiology Benign hypertension 1072 5009 I10 good control Carotid atherosclerosis 812508446 I70.8 per pt had U/S 11/2016 with cardiology Screening for malignant neoplasm of colon 479524517 Z12.11 last C scope 11/11/13 , good till 2019 Active or passive immunization 713023060 Z23 refuse flu , pneumonia Osteoarthr itis of knee 793517487 M17.0 Chronic ki dney disease stage 3 255949425 N18.3 No NSAIDS , No TIFFANY dye [id number] Samaria Guerrero MD [facility], [facility] [address] [place] [address] 09/19/2018 16:53:14 09/19/2018 18:22:48 Adult health examination 363768177 Z00.01 Benign hypertension 1072 5009 I10 good control Coronary arteriosclerosis 94181415 I25.10 sees cardiology Hyperlipidemia 64244404 E78.5 last LDL @ goal 02/2018 Diabetes mellitus 913820 09 E11.9 Chronic ki dney disease stage 3 643620739 N18.3 No NSAIDS , No TIFFANY dye Carotid atherosclerosis 777775592 I70.8 per pt had U/S 11/2016 with cardiology Osteoarthr itis of knee 127426601 M17.0 Pain of le ft shoulder joint 5948132993 5656580 M25.512 S/P fall , decreased ROMwill check MRI , Screening for malignant neoplasm of colon 267123305 Z12.11 last C scope 2018 per pt @ Dr Wilson Active or passive immunization 826996469 Z23 refuse flu , pneumonia [id number] Samaria Guerrero MD [facility] [address] [place] [address] 03/20/2019 16:18:34 03/20/2019 17:01:58 Benign hypertension 22521597 I10 good control Coronary arteriosclerosis 80494454 I25.10 sees cardiology Hyperlipidemia 29620851 E78.5 last LDL @ goal 02/2018 Diabetes mellitus 955494 09 E11.9 last ophth eval 12/05/18 Chronic ki dney disease stage 3 223568447 N18.3 No NSAIDS , No TIFAFNY dye Carotid atherosclerosis 461880453 I70.8 per pt had U/S 11/2016 with cardiology Pain of le ft shoulder joint 2617534851 6911600 M25.512 S/P fall , decreased ROMdecline MRI Screening for malignant neoplasm of colon 092931000 Z12.11 last C scope 2018 per pt @ Dr Robles Active or passive immunization 773268788 Z23 refuse flu , pneumonia [id number] Samaria Guerrero MD [facility] [address] [place] [address] 06/20/2019 15:58:30 06/20/2019 16:20:16 Benign hypertension 11333897 I10 good control Carotid atherosclerosis 781739499 I70.8 last US 03/28/19 Chronic ki dney disease stage 3 254281670 N18.3 No NSAIDS , No TIFFANY dye Coronary arteriosclerosis 19437265 I25.10 sees cardiology Diabetes mellitus 448755 09 E11.9 last ophth eval 04/2019 per pt Hyperlipidemia 74746054 E78.5 last LDL @ goal 04/10/19 Screening for malignant neoplasm of colon 646938972 Z12.11 last C scope 2018 per pt @ Dr Robles Active or passive immunization 264950645 Z23 refuse flu , pneumonia Osteoarthritis 226284439 M19.90 [id number] Samaria Guerrero MD [facility], [facility] [address] [place] [address] 12/16/2019 10:53:04 12/16/2019 12:05:00 Adult health examination 311239329 Z00.01 Benign hypertension 1072 5009 I10 good controllas t EKG 07/08/19\re start lisinopril 2.5 QAM Coronary arteriosclerosis 55186920 I25.10 sees cardiology , last stress test 07/08/19 Diabetes mellitus 222433 09 E11.9 last ophth eval 04/2019 per ptlast AYDEN 04/10/19 Chronic ki dney disease stage 3 280168019 N18.3 No NSAIDS , No TIFFANY dyelast Cr was down to 1.04 Carotid atherosclerosis 416875246 I70.8 last US 03/28/19 Hyperlipidemia 67987806 E78.5 last LDL @ goal 04/10/19 Osteoarthr itis of knee 635661232 M17.0 tylenol 500 TID Screening for malignant neoplasm of colon 262247049 Z12.11 last C scope 2018 per pt @ Dr Robles Active or passive immunization 562321958 Z23 refuse flu , pneumonia OR shingrix [id number] Samaria Guerrero MD [facility] [address] [place] [address] 03/26/2020 14:51:54 03/26/2020 15:31:26 Low back pain 073636079 M54.5 [id number] Samaria Guerrero MD [facility], [facility] [address] [place] [address] 07/02/2020 09:54:02 07/02/2020 11:03:11 Pneumonia 681657275 J18.9 Pulmonary embolism 94764 003 I26.99 recheck CTA , US 3 monthscont ' eliquis 3 months Anemia 159524983 D64.9 Benign hypertension 1072 5009 I10 on lower side nowlast EKG 07/08/19\ho ld lisinopril 2.5 QAMBP 1-2 weeks Carotid atherosclerosis 077571872 I70.8 last US 03/28/19 COVID-19 162698779 U07.1 recovering Diabetes mellitus 155706 09 E11.9 last ophth eval 04/2019 per ptlast AYDEN 04/10/19 [id number] Samaria Guerrero MD [facility], [facility] [address] [place] [address] 07/13/2020 10:29:23 07/13/2020 11:30:09 Sinus tachycardia 98688916 R00.0 add 12.5 toprol , BP 2 weekssee cardiology , Benign hypertension 1072 5009 I10 on lower side nowlast EKG 07/08/19\ho ld lisinopril 2.5 QAMBP 1-2 weeks Diabetes mellitus 335455 09 E11.9 last ophth eval 04/2019 per ptlast AYDEN 04/10/19ho ld farxiga Pneumonia 673845859 J18. 9 O2 is 98% on RA Pulmonary embolism 59341 003 I26.99 recheck CTA 3 monthscont ' eliquis 3 months Anemia 196313364 D64.9 last CBC 07/08/20rec heck 3-4 weeks [id number] Samaria Guerrero MD [facility] [address] [place] [address] 09/17/2020 10:53:51 09/17/2020 12:59:35 Benign hypertension 68528954 I10 last EKG 07/13/20 BP 1-2 weeks Carotid atherosclerosis 825566801 I70.8 last US 03/28/19 , had US today Diabetes mellitus 030144 09 E11.9 last ophth eval 04/2019 per pt last AYDEN 04/10/19 last A1c 09/07/20 Hyperlipidemia 41105829 E78.5 last LDL @ goal 04/10/19 Pulmonary embolism 89654 003 I26.99 recheck CTA 3 months from 06/26/20 cont' eliquis 3 months from 06/26/20 , then ASA 325 Screening for malignant neoplasm of colon 107213125 Z12.11 last C scope 2018 per pt @ Dr Robles Active or passive immunization 927207614 Z23 refuse flu , pneumonia OR shingrix [id number] Samaria Guerrero MD [facility] [address] [place] [address] 12/28/2020 08:53:58 12/28/2020 09:44:16 Adult health examination 454448250 Z00.01 Benign hypertension 1072 5009 I10 last EKG 07/13/20 BP 1-2 weeks Carotid atherosclerosis 482068609 I70.8 last US 09/17/20 , recheck 1 year Anemia 056507764 D64.9 last CBC 07/08/20rec heck 3-4 weeks Chronic ki dney disease stage 3 333648729 N18.30 Coronary arteriosclerosis 99183138 I25.10 sees cardiology , last stress test 07/08/19 Diabetes mellitus 180489 09 E11.9 last ophth eval 04/2019 per pt last AYDEN 09/21/20 last A1c 09/07/20 Hyperlipidemia 75397368 E78.5 last LDL @ goal 09/21/20 Osteoarthr itis of knee 157289265 M17.0 tylenol 500 TID Pain of le ft shoulder joint 6370758196 6366025 M25.512 S/P fall , decreased ROMdecline MRI Solitary n odule of lung 777119708 R91.[address] 10/06/20 Screening for malignant neoplasm of colon 445244655 Z12.11 last C scope 2018 per pt @ Dr Robles Active or passive immunization 276681343 Z23 refuse flu , pneumonia OR shingrix [id number] Samaria Guerrero MD [facility] [address] [place] [address] 06/30/2021 08:49:16 06/30/2021 09:33:47 Benign hypertension 01299707 I10 last EKG 07/13/20 BP 1-2 weeks Carotid atherosclerosis 131182465 I70.8 last US 09/17/20 , recheck 1 year Chronic ki dney disease stage 3 445326329 N18.30 Coronary arteriosclerosis 85737703 I25.10 sees cardiology , last stress test 07/08/19hav ing another stress test next month Diabetes mellitus 420431 09 E11.9 last ophth eval 04/2019 per pt last AYDEN 09/21/20 last A1c 12/31/20 Hyperlipidemia 86049264 E78.5 last LDL @ goal 09/21/20 Osteoarthr itis of knee 456103653 M17.0 tylenol 500 TID Solitary n odule of lung 664762739 R91.[address] 10/06/20 Body mass index 20-24 - normal 146654593 Z68.22 lost 8 LBs on diet and exercise Screening for malignant neoplasm of colon 716294779 Z12.11 last C scope 2018 per pt @ Dr Robles Active or passive immunization 048824003 Z23 refuse flu , pneumonia OR shingrix History of SARS-CoV-2 29 04056597 13599364 Z86.16 2020 Anemia 294991033 D64.9 check labs , Long-term drug therapy 895840144 Z79.899 metformin , check b12 [id number] Samaria Geurrero MD [facility], [facility] [address] [place] [address] 12/27/2021 09:04:33 12/27/2021 09:55:09 Benign hypertension 15703683 I10 last EKG 07/13/20 BP 1-2 weeks Body mass index 20-24 - normal 619606021 Z68.22 educationo n diet and exercise Carotid atherosclerosis 700616045 I70.8 last US 09/17/20 , recheck 1 year Coronary arteriosclerosis 23283919 I25.10 sees cardiology , last stress test 07/08/19 Diabetes mellitus 281189 09 E11.9 last ophth eval 04/2019 per pt last AYDEN 09/21/20 last A1c 07/28/21 Hyperlipidemia 35834145 E78.5 last LDL @ goal 07/28/21 Long-term drug therapy 473561152 Z79.899 metformin , check b12 Solitary n odule of lung 348961330 R91.[address] 10/22/21 Screening for malignant neoplasm of colon 120379881 Z12.11 last C scope 2018 per pt @ Dr Robles Active or passive immunization 082221660 Z23 refuse flu , pneumonia OR shingrix Advance di rective discussed with patient 974505601 Z71.89 education Anemia 821068904 D64.9 check labs , [id number] Samaria Guerrero MD [facility], [facility] [address] [place] [address] 06/29/2022 09:13:14 06/29/2022 10:33:35 Adult health examination 815857424 Z00.01 Benign hypertension 1072 5009 I10 last EKG 12/27/21 BP 1-2 weeks Body mass index 20-24 - normal 825482273 Z68.22 educationo n diet and exercise Carotid ar julissa stenosis 38771655 I65.29 last US 03/31/22 , recheck 6 months Chronic ki dney disease stage 3 024101104 N18.30 Coronary arteriosclerosis 30250357 I25.10 sees cardiology , last stress test 07/08/19 Diabetes mellitus 577649 09 E11.9 last ophth eval 04/2019 per pt last AYDEN 09/21/20 last A1c 07/28/21 History of SARS-CoV-2 29 32798957 21957264 Z86.16 2020 Hyperlipidemia 54744263 E78.5 last LDL @ goal 07/28/21 Long-term drug therapy 528353973 Z79.899 metformin , check b12 Osteoarthr itis of knee 957602434 M17.0 tylenol 500 TID Solitary n odule of lung 416894858 R91.[address] 10/22/21 Screening for malignant neoplasm of colon 089117571 Z12.11 last C scope 2018 per pt @ Dr Robles Active or passive immunization 069060618 Z23 refuse flu , pneumonia OR shingrix [id number] Samaria Guerrero MD [facility], [facility] [address] [place] [address] 01/04/2023 09:16:38 01/04/2023 10:13:06 Benign hypertension 84875653 I10 last EKG 12/27/21 BP 1-2 weeks Body mass index 20-24 - normal 964082097 Z68.22 educationo n diet and exercise Carotid ar julissa stenosis 40781925 I65.29 last US 03/31/22 , recheck 6 months Chronic ki dney disease stage 3 525615699 N18.30 better on last labs 07/15/22 Coronary arteriosclerosis 84490498 I25.10 sees cardiology , last stress test 07/08/19 Diabetes mellitus 036895 09 E11.9 last ophth eval 11/2022 per pt last AYDEN 07/15/22 last A1c 07/28/21 Hyperlipidemia 80999982 E78.5 last LDL @ goal 07/15/22 Long-term drug therapy 638661133 Z79.899 metformin , check b12 Osteoarthr itis of knee 025602638 M17.0 tylenol 500 TID Solitary n odule of lung 702177107 R91.[address] 10/22/21 Serum glory min B12 below reference range 346167938 R79.89 Screening for malignant neoplasm of colon 496775871 Z12.11 last C scope 2018 per pt @ Dr oRbles Active or passive immunization 377963471 Z23 refuse flu , pneumonia OR shingrix [id number] Samaria Guerrero MD [facility], [facility] [address] [place] [address] 07/05/2023 09:08:10 07/05/2023 09:34:56 Adult health examination 428878666 Z00.01 Benign hypertension 1072 5009 I10 last EKG 01/04/23 BP 1-2 weeks Body mass index 20-24 - normal 443205468 Z68.22 educationo n diet and exercise Carotid ar julissa stenosis 49119633 I65.29 last US 01/26/23 , recheck 12 months Chronic ki dney disease stage 3 225391845 N18.30 better on last labs 07/15/22 Coronary arteriosclerosis 08882442 I25.10 sees cardiology , last stress test 07/08/19 Diabetes mellitus 824347 09 E11.9 last ophth eval 06/19/23 per pt last AYDEN 07/15/22 last A1c 07/28/21 History of SARS-CoV-2 29 75481420 23289687 Z86.16 2020 Hyperlipidemia 93299574 E78.5 last LDL @ goal 07/15/22 Long-term drug therapy 056497759 Z79.899 metformin , last B12 01/26/23 Anemia 411767812 D64.9 check labs , Osteoarthr itis of knee 496958959 M17.0 tylenol 500 TID Serum glory min B12 below reference range 646841914 R79.89 last level 01/26/23 Solitary n odule of lung 578382173 R91.[address] 01/25/23 Screening for malignant neoplasm of colon 139622103 Z12.11 last C scope 2018 per pt @ Dr Robles Active or passive immunization 959068996 Z23 refuse flu , RSV , pneumonia OR shingrix Advance di rective discussed with patient 620982150 Z71.89 education Allergic conjunctivitis 741219003 H10.10 [id number] Samaria Guerrero MD [facility] [address] [place] [address] 10/04/2023 09:06:30 10/04/2023 09:41:28 Benign hypertension 99317251 I10 last EKG 01/04/23 BP 1-2 weeks Carotid ar julissa stenosis 78054173 I65.29 last US 01/26/23 , recheck 12 months Anemia 877174660 D64.9 check labs , Chronic ki dney disease stage 3 833225312 N18.30 better on last labs 07/15/22 Diabetes mellitus 563804 09 E11.9 last ophth eval 06/19/23 per pt last AYDEN 07/12/23 last A1c 07/12/23 Screening for malignant neoplasm of colon 113290742 Z12.11 last C scope 2018 per pt @ Dr Robels Active or passive immunization 228277237 Z23 refuse flu , RSV , pneumonia OR shingrix [id number] Samaria Guerrero MD [facility], [facility] [address] [place] [address] 12/14/2023 09:45:35 12/14/2023 10:51:54 Preoperative cardiovascular examination 811061634 Z01.810 No CP , NO SOB ,low risk for surgery Coronary arteriosclerosis 70212474 I25.10 on Cath 02/2013 , sees cardiology every 12 months , last stress test 07/08/19 was -ve Diabetes mellitus 464433 09 E11.9 last ophth eval 06/19/23 per pt last AYDEN 07/12/23 last A1c 10/24/23 [id number] Samaria Guerrero MD [facility], [facility] [address] [place] [address] 03/05/2024 09:30:11 03/05/2024 10:54:17 Diabetes mellitus 25101596 E11.9 last ophth eval 12/29/23 per pt last AYDEN 07/12/23 last A1c 01/30/24 was 6.6% Carotid atherosclerosis 323199717 I70.8 last US 09/17/ , recheck 1 year Benign hypertension 1072 5009 I10 last EKG 12/14/23 BP 1-2 weeks Body mass index 20-24 - normal 766713079 Z68.22 educationo n diet and exercise Low back pain 626454072 M54.50 Right flank pain 0502800 09 R10.9 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 Screening for malignant neoplasm of colon 997362230 Z12.11 last C scope 2018 per pt @ Dr Robles Active or passive immunization 643609976 Z23 refuse flu , RSV , pneumonia OR shingrix [id number] Samaria Guerrero MD [facility] [facility], [facility] [address] [place] [address] 06/20/2024 16:09:19 06/20/2024 17:40:37 Benign hypertension 57578893 I10 last EKG 12/14/23 BP 1-2 weeks Benign pro static hyperplasia with outflow obstruction 117751165 N40.1 Body mass index 20-24 - normal 681891734 Z68.22 educationo n diet and exercise Carotid ar julissa stenosis 20329902 I65.29 last US 03/07/24 , recheck 12 months Chronic ki dney disease stage 3 338611232 N18.30 better on last labs 07/15/22 Coronary arteriosclerosis 15575624 I25.10 on Cath 02/2013 , sees cardiology every 12 months , last stress test 07/08/19 was -ve Diabetes mellitus 310341 09 E11.9 last ophth eval 12/29/23 per pt last AYDEN 07/12/23 last A1c 01/30/24 was 6.6% Hyperlipidemia 90423556 E78.5 last LDL @ goal 07/15/22 Long-term drug therapy 644857958 Z79.899 metformin , last B12 01/26/23 Serum glory min B12 below reference range 619965906 R79.89 last level 01/26/23 Solitary n odule of lung 130267759 R91.[address] 01/25/23 Osteoarthritis 788546378 M19.90 Screening for malignant neoplasm of colon 260802192 Z12.11 last C scope 2018 per pt @ Dr Robles Active or passive immunization 162479330 Z23 refuse flu , RSV , pneumonia OR shingrix Health Concerns Section Related Observation LastModified by Organization Detai ls LastModified Time None Recorded Concern Status LastModified by Organization Details LastModified Time None Recorded Advance Directives Directive None Recorded Payers Encounter Date Sequence Insurance Name Policy Number Policy Aviles Covered Member ID Aviles Member ID Guarantor Name 07/05/2023 2 [place] [id number] Claude Tapan Valencia [id number] Claude Phelan Erik 07/05/2023 1 [place] Claude Valencia [id number] Claude Phelan Erik 10/04/2023 2 [place] 106 Claude Phelan Erik [id number] Claude Phelan Erik 10/04/2023 1 [place] Claude Tapan Valencia [id number] Claude Phelan Erik 12/14/2023 2 [place] 106 Claude Phelan Erik [id number] Claude Phelan Erik 12/14/2023 1 [place] Claude Valencia [id number] Claude Phelan Erik 03/05/2024 2 [place] 106 Claude Phelan Erik [id number] Claude Phelan Valencia 03/05/2024 1 [place] Claude Valencia [id number] Claude Phelan Erik 06/20/2024 2 [place] 106 Claude Valencia [id number] Claude Valencia 06/20/2024 1 [place] Claude Valencia [id number] 4 Claude Tapan Erik Notes Date Note Type Note Provider Name and Address Organization Details Recorded Time 07/05/2023 text/html Hypertension F/UReported bypatient.Medications: taking medications as directed; no side effects from medication Lifestyle:regular exercise; limiting/avoiding salt; compliant with low salt diet Associated Symptoms:no dizziness; no lightheadedness; no chest pain; no shortness of breath; no palpitations; no edema; no calf pain with exertion; no headacheMedicare Annual Wellness VisitReported bypatient.Diet and Nutrition:healthy diet Fracture Risk:no history of fractures; no recent explained fracture; no sudden unexplained fractures; no previous musculoskeletal injuries Physical Activity:recent increase in physical activity; good physical condition; discussed exercise habits Depression Risk:never feels sad, empty, or tearful; no loss of interest in activities; no significant changes in weight; no sleep disturbances or insomnia; no agitation; no loss of energy; no feelings of worthlessness or guilt; no thoughts of suicide; no history of depression; no history of mood disorders Orientation:no disorientation to time; no disorientation to date; no disorientation to place Concentration and Memory:no decreased concentrating ability; no memory lapses or loss; does not forget words Speech/Motor difficulties:no speech difficulties; no difficulty expressing formulated concepts; no difficulty with fine manipulative tasks; no difficulty writing/copying; no slowed reaction time; does not knock things over when trying to pick them up Hearing:no loss of hearing Vision:no vision problems Activities of Daily Living:able to bathe with limited or no assistance; able to contol urination and bowels; able to dress with limited or no assistance; able to feed self with limited or no assistance; able to get out of chair or bed with limited or no assistance; able to groom with limited or no assistance; able to toilet with limited or no assistance Instrumental Activities of Daily Living:able to do house work with limited or no assistance; able to grocery shop with limited or no assistance; able to manage medications with limited or no assistance; able to manage money with limited or no assistance; able to prepare meals with limited or no assistance; able to use the phone with limited or no assistance Falls Risk Assessment:no frequent falls while walking; no fall in the past year; no fall since last visit; no dizziness/vertigo Home Safety:use of seatbelts; no vision or hearing loss while driving Samaria Guerrero MD [address] [place] [address], [place], [address], [facility] 07/05/2023 09:32:23 10/04/2023 text/html Hypertension F/UReported bypatient.Medications: taking medications as directed; no side effects from medication Lifestyle:regular exercise; limiting/avoiding salt; compliant with low salt diet Associated Symptoms:no dizziness; no lightheadedness; no chest pain; no shortness of breath; no palpitations; no edema; no calf pain with exertion; no headacheMedicare Annual Wellness VisitReported bypatient.Falls Risk Assessment:no frequent falls while walking; no fall in the past year; no fall since last visit; no dizziness/vertigo Samaria Guerrero MD [address], [place], [address], [facility] 10/04/2023 09:37:00 12/14/2023 text/html Hypertension F/UReported bypatient.Medications: taking medications as directed; no side effects from medication Lifestyle:regular exercise; limiting/avoiding salt; compliant with low salt diet Associated Symptoms:no dizziness; no lightheadedness; no chest pain; no shortness of breath; no palpitations; no edema; no calf pain with exertion; no headache preop eval Samaria Guerrero MD [address], [place], [address], [facility] 12/14/2023 10:30:54 03/05/2024 text/html Hypertension F/UReported bypatient.Medications: taking medications as directed; no side effects from medication Lifestyle:regular exercise; limiting/avoiding salt; compliant with low salt diet Associated Symptoms:no dizziness; no lightheadedness; no chest pain; no shortness of breath; no palpitations; no edema; no calf pain with exertion; no headache Rt flank pain and LBP , months , No injurypolyuria day and night Samaria Guerrero MD [address], [place], [address], [facility] 03/05/2024 10:30:10 06/20/2024 text/html Hypertension F/UReported bypatient.Medications: taking medications as directed; no side effects from medication Lifestyle:regular exercise; limiting/avoiding salt; compliant with low salt diet Associated Symptoms:no dizziness; no lightheadedness; no chest pain; no shortness of breath; no palpitations; no edema; no calf pain with exertion; no headache Samaria Guerrero MD [address] [place] [address] [address], [place], [address], [facility] 06/20/2024 17:34:29
--- OUTSIDE RECORDS SUMMARY | 2024-06-26 12:22 | XMS_ITS | Encounter Summary ---
Author Organization [facility] Address [address] [place] [address] Phone Care Team Providers Care Manager Export Name Role Phone Samaria Rosales MD Primary Care Provider [phone] Oleg Watts MD Unavailable [phone] Encounter Details Date Type Department Care Team (Latest Contact Info) Description 12/27/2019 Orders Only [facility] Scanning, Provider Social History Tobacco Use Types Packs/Day Years Used Date Smoking Tobacco: Former Smokeless Tobacco: Never Sex and Gender Information Value Date Recorded Sex Assigned at Not on file Legal Sex Male 3:16 AM [employer] Gender Identity Not on file Sexual Orientation Not on file documented as of this encounter Plan of Treatment Not on file documented as of this encounter Procedures Procedure Name Priority Date/Time Associated Diagnosis Comments SCAN - LABS 12/27/2019 documented in this encounter Results * SCAN - LABS (12/27/2019) us Provider Scanning Final Result documented in this encounter Visit Diagnoses Not on filedocumented in this encounter Additional Health Concerns Infection Onset Date Last Indicated Resolved Time COVID19 Comment:Added from the Screening question BPA, identifying patients that tested positive for COVID in the last 14 days and the result is from a facility outside [facility] . 06/11/2020 06/11/2020 07/10/2020 3:07 AM [employer] COVID: Recovered Comment:Added based on recent COVID infection. 07/10/2020 07/14/2020 11/07/2020 3:05 AM C DT documented as of this encounter Care Teams Manager Export Relationship Specialty Start Date End Date Samaria Rosales MD [address] [facility] [address] [place] [address] PCP - General 01/12/17 Oleg Watts MD [address] [place] [id number] Consulting Physician General Surgery 12/19/23 documented as of this encounter
--- OUTSIDE RECORDS SUMMARY | 2024-06-26 12:23 | XMS_ITS ---
Author Name [facility] Organization [facility] Address [address] [place] [address] Care Team Providers Care Stopping Builder Name Role Phone RICO RASCON Primary Care Provider Unavailabl e Insurance Providers: All historical and current Section Date Range: From patient's date of to the date document was created. This section includes the names of all active insurance providers for the patient. Insurance Provider Type of Coverage Plan Name Start of Policy Coverage End of Policy Coverage Group Number Member ID Insurance Provider's Telephone Number Policy Aviles's Name Patient's Relationship to Policy Aviles [place] PREFERRED PROVIDER ORGANIZAT ION (PPO) FEP STAND GELY IND May 15, 2007 104 [id number] [phone] EDIS HINDS PATIENT AN[place] PREFERRED PROVIDER ORGANIZAT ION (PPO) FEP STAND GELY IND May 15, 2007 104 [id number] [phone] EDIS HINDS PATIENT [place] PREFERRED PROVIDER ORGANIZAT ION (PPO) FEP STAND GELY IND May 15, 2007 104 [id number] [phone] EDIS HINSD PATIENT [place] PREFERRED PROVIDER ORGANIZAT ION (PPO) FEP STAND GELY IND May 15, 2007 104 [id number] [phone] EDIS HINDS PATIENT MEDICARE (WNR) MEDICARE (M) PART B Nov 13, 2003 PART B [id number] EDIS HINDS PATIENT MEDICARE (WNR) MEDICARE (M) PART B Nov 13, 2003 PART B [id number] [phone] EDIS HINDS PATIENT MEDICARE (WNR) MEDICARE (M) PART A Aug 13, 2001 PART A [id number] EDIS HINDS PATIENT MEDICARE (WNR) MEDICARE (M) PART A Aug 13, 2001 PART A [id number] [phone] EDIS HINDS PATIENT MEDICARE (WNR) MEDICARE (M) PART A Aug 13, 2001 PART A [id number] [phone] EDIS HINDS PATIENT MEDICARE (WNR) MEDICARE (M) PART B Aug 13, 2001 PART B [id number] EDIS HINDS PATIENT Selected Encounter This section includes the information on record at DC for the Encounter. Date/Time Encounter Type Encounter Description Reason Provider Source Jan 30, 2024 10:00 AM OFFICE O/P EST MOD 30 MIN GERIPACT ICD-10-CM E11.9 Type 2 diabetes mellitus without complications RICO RASCON Kendra Encounter Template Text not used by DC Assessments - Encounter Diagnoses This section includes the primary and secondary diagnoses documented for the Encounter. Date/Time Primary/Secondary Diagnosis Diagnosis Name Provider Source Feb 07, 2024 02:05 PM PRIMARY Type 2 diabetes mellitus without complications RICO RASCON [facility] Feb 07, 2024 02:05 PM SECONDARY Athscl heart disease of [place] coronary artery w/o ang pctrs [facility] Feb 07, 2024 02:05 PM SECONDARY Benign prostatic hyperplasia with lower urinary tract symp RICO RASCON [facility] Feb 07, 2024 02:05 PM SECONDARY Essential (primary) hypertension RICO RASCON [facility] Feb 07, 2024 02:05 PM SECONDARY Hyperlipidemia, unspecified RICO RASCON [facility] Feb 07, 2024 02:05 PM SECONDARY Iron deficiency anemia, unspecified [facility] Feb 07, 2024 02:05 PM SECONDARY Unspecified osteoarthritis, unspecified site [facility] Plan of Treatment: Future Appointments (+ 6 months) and Future Tests (+/- 45 days) The Plan of Treatment section includes future care activities for the [facility] This section includes future appointments and future orders which are active, pending or scheduled. Future Appointments This section includes appointments that were scheduled to occur 6 months from the date of the Encounter, up to a maximum of 20 appointments. The data comes from all [place] treatment facilities. Appointment Date/Time Appointment Type Appointme nt Facility Name Apr 01, 2024 01:30 PM AMBULATORY - SURGERY [facility] Jun 27, 2024 10:00 AM AMBULATORY - SURGERY [facility] Lab Results: +/- 30 days of the encounter This section includes the Chemistry and Hematology Lab Results on record with DC for the patient. Radiology Reports and Pathology Reports are provided separately, in subsequent sections. Lab Results This section contains the Chemistry/Hematology Results that were resulted 30 days before or 30 daysafter the date of the Encounter. Date/Time Source Result Type Result - Unit Interpretation Reference Range Comment Jan 30, 2024 09:[address] [facility] COMPREHENSIVE METABOLIC PANEL Specimen Type: PLASMA Comment: No hemolysis noted. Ordering Provider: RICO RASCON Report Released Date/Time: Jan 28, 2024 10:56 AM Reporting Lab: [facility] [facility] [id number] Performing Lab: [facility] [address] [facility] [phone] CREATININE 1.08 mg/dL 0.70-1.30 UREA NITROGEN 16.1 mg/dL 9.0-25.0 GLUCOSE 128 mg/dL H 72-99 SODIUM 140 meq/L 136-145 POTASSIUM 4.4 meq/L 3.5-5.0 CHLORIDE 109 meq/L H 98-107 CARBON DIOXIDE 22 meq/L 22-31 CALCIUM 9.8 mg/dL 8.4-10.4 PROTEIN 6.6 g/dL 6.0-8.6 ALBUMIN 4.4 g/dL 3.4-5.0 TOTAL BILIRUBIN 0.9 mg/dL 0.2-1.2 ALKALINE PHOSPHATASE 71 U/L 40-150 AST/SGOT 17 U/L 5-34 ALT/SGPT 16 U/L 8-40 EGFR (CKD-EPI 2020) 66.42 >60 Jan 30, 2024 09:06 AM [facility] CBC Specimen Type: BLOOD No comment entered. Ordering Provider: RICO RASCON Report Released Date/Time: Jan 28, 2024 10:56 AM Reporting Lab: [facility] [id number] Performing Lab: [facility] [facility] [phone] WBC 6.5 10*3/uL 3.6-11.2 RBC 4.69 10*6/uL 4.10-5.70 HGB 14.1 g/dL 13.1-16.8 HCT 41.6 38.2-48.4 MCV 88.7 fL 80.0-100.0 MCH 30.1 pg 27.0-34.0 MCHC 33.9 g/dL 33.0-36.0 PLT 179 10*3/uL 150-400 MPV 8.4 fL 7.5-11.2 RDW 12.9 11.8-15.1 LYMPHOCYTES, AUTO % 22 MONOCYTES, AUTO % 9 NEUTROPHILS, AUTO % 66 EOSINOPHILS, AUTO % 2 BASOPHILS, AUTO % 1 LYMPHOCYTES, ABSOLUTE 1.44 10*3/uL 0.77-4.50 MONOCYTES, ABSOLUTE 0.57 10*3/uL 0.19-0.80 NEUTROPHILS, ABSOLUTE 4.33 10*3/uL 2.10-8.00 EOSINOPHILS, ABSOLUTE 0.13 10*3/uL 0.00-0.60 BASOPHILS, ABSOLUTE 0.04 10*3/uL 0.00-0.20 Jan 30, 2024 09:06 AM [facility] HGA1C Specimen Type: BLOOD No comment entered. Ordering Provider: RICO RASCON Report Released Date/Time: Jan 28, 2024 10:56 AM Reporting Lab: [facility] [phone] Performing Lab: [facility] [facility] [phone] HGA1C 6.6 H 4.0-6.0 Jan 30, 2024 09:[address] [facility] LIPID PANEL (STL) Specimen Type: PLASMA Comment: No hemolysis noted. Ordering Provider: RICO RASCON Report Released Date/Time: Jan 28, 2024 10:56 AM Reporting Lab: [facility] [address] [place] [address] Performing Lab: [facility] [address] [place] [address] CHOLESTEROL 112 mg/dL 0-200 TRIGLYCERIDE 61 mg/dL 0-150 CALCULATED LDL 57 mg/dL See Interp HDL(New) 43 mg/dL > 40 Jan 30, 2024 09:06 AM [facility] B12 Specimen Type: SERUM No comment entered. Ordering Provider: RICO RASCON Report Released Date/Time: Jan 28, 2024 10:56 AM Reporting Lab: [facility] [address] [place] [address] Performing Lab: [facility] [address] [place] [address] B12 427 pg/mL 213-816 Jan 30, 2024 09:06 AM [facility] FOLATE (L-MA) Specimen Type: SERUM No comment entered. Ordering Provider: RICO RASCON Report Released Date/Time: Jan 28, 2024 10:56 AM Reporting Lab: [facility] [address] [place] [address] Performing Lab: [facility] [address] [place] [address] FOLATE (L-MA) 16.8 ng/mL 7-20 Jan 30, 2024 09:06 AM [facility] VITAMIN D, 25-HYDROXY Specimen Type: SERUM No comment entered. Ordering Provider: RICO RASCON Report Released Date/Time: Jan 28, 2024 10:56 AM Reporting Lab: [facility] [address] [place] [address] Performing Lab: [facility] [address] [facility] [phone] VITAMIN D, 25-HYDROXY 62.4 ng/mL 30-96 Jan 30, 2024 09:[address] [facility] TSH (MA-PB) Specimen Type: SERUM No comment entered. Ordering Provider: RICO RASCON Report Released Date/Time: Jan 28, 2024 10:56 AM Reporting Lab: [facility] [facility] [address] Performing Lab: [facility] [address] [facility] [address] TSH 0.767 u[IU]/mL 0.470-5.000 Jan 30, 2024 09:[address] [facility] FERRITIN Specimen Type: SERUM No comment entered. Ordering Provider: RICO RASCON Report Released Date/Time: Jan 28, 2024 10:56 AM Reporting Lab: [place] [id number] [facility] [phone] Performing Lab: [address] [address] FERRITIN 46.97 ng/mL 22-275 Vital Signs: All taken on the encounter date This section contains inpatient and outpatient Vital Signs collected on the date of the Encounter. Date/Time Temperature Pulse Blood Pressure Respiratory Rate SP02 Pain Height Weight Body Mass Index Source Jan 30, 2024 10:02 AM 114/70 [facility] Jan 30, 2024 10:02 AM 98.5 59 126/65 18 98 0 67 150 24 [facility] Social History: Smoking Status (Most current) and Tobacco Use (All prior to encounter date) This section includes the most current, and the historical, smoking and tobacco- related health factors from the DC facility where the Encounter took place. Current Smoking Status This section includes the most current smoking, or tobacco-related health factor, from the DC facility where the Encounter took place. Date/Time Current Smoking Status Camille gauthier Jul 31, 2023 10:00 AM DC-TOBACCO QUIT [address] [facility] Tobacco Use History This section includes a history of the smoking, or tobacco-related health factors, that were collected on or before the date of the Encounter. The data comes from the DC facility where the Encounter took place. Date/Time Smoking Status/Tobacco Use Comment F acility Jul 31, 2023 10:00 AM VA-TOBACCO QUIT 15 YRS OR MORE [facility] Mar 03, 2021 10:00 AM VA-TOBACCO FORMER USER [facility] Mar 03, 2021 10:00 AM VA-TOBACCO QUIT 15 YRS OR MORE [facility] Sep 07, 2020 08:00 AM VA-TOBACCO FORMER USER [facility] Sep 07, 2020 08:00 AM VA-TOBACCO QUIT [address] [facility] Jan 07, 2019 02:58 PM VA-TOBACCO FORMER USER [facility] Jan 07, 2019 02:58 PM VA-TOBACCO QUIT 15 YRS OR MORE [facility] Encounter Notes: All associated encounter notes This section contains the clinical notes associated to the Encounter. Date/Time Encounter Note(s) Provider Source Jan 30, 2024 11:19 AM LETTERS: LOCAL TITLE: TEST RESULT GERIATRIC LETTER STL STANDARD TITLE: LETTERS DATE OF NOTE: JAN 30, 2024@11:19 ENTRY DATE: JAN 30, 2024@11:19:13 AUTHOR: RICO RASCON EXP COSIGNER: URGENCY: STATUS: COMPLETED [facility] [address] [place] [address] JAN 30, 2024 EDIS HINDS [address] [place] [address] [place], [place] [address] Dear Mr. Edis Hinds, I would like to update you on your recent test results from your last geriatric clinic visit. LIPID PROFILE - High cholesterol and triglycerides (lipids) are risk factors for heart disease. Your cholesterol should fall between 140 and 200, and your triglycerides levels should be less than or equal to 150. HDL is the good cholesterol and should ideally be greater than 40. LDL is the bad cholesterol and optimal levels should be less than 100 (near optimal is between 100 and 129). TRIGLYCERIDE 61 mg/dL 01/30/2024 09:06 CHOLESTEROL 112 mg/dL 01/30/2024 09:06 HDL(New) 43 mg/dL 01/30/2024 09:06 CALCULATED LDL 57 mg/dL 01/30/2024 09:06 These readings are within normal limits. HEMOGLOBIN A1C - Gives us information about your diabetes (sugar or glucose) control over the past 3 months. Your target is to keep your A1C below 7 %. HGA1C 6.6 H % 01/30/2024 09:06 These results are abnormal. Your diabetes control is good. Please continue taking your medications as prescribed and drink plenty of water. CBC - A complete blood count (CBC) gives important information about the kinds and numbers of cells in the blood, especially red blood cells, white blood cells, and platelets. HGB 14.1 g/dL 01/30/2024 09:06 HEMATOCRIT 41.6 % (01/30/24 09:06) PLT 179 10*3/uL 01/30/2024 09:06 WHITE BLOOD COUNT 6.5 10*3/uL (01/30/24 09:06) These readings are within normal limits. FOLATE - Folate (vitamin B-9) is important in red blood cell formation and for healthy cell growth and function. Collection DT Specimen Test Name Result Units Ref Range 01/30/2024 09:06 SERUM FOLATE ([facility]) 16.8 ng/mL 7 - 20 These readings are within normal limits. B12 - Helps maintain healthy nerve cells, red blood cells, and is also needed to make DNA. B12 427 pg/mL 01/30/2024 09:06 These readings are within normal limits. CHEM 7 - This is important information about the current status of your kidneys, liver, and electrolyte and acid/base balance as well as of your blood sugar and blood proteins. SODIUM 140 mEq/L 01/30/2024 09:06 POTASSIUM 4.4 mEq/L 01/30/2024 09:06 CHLORIDE 109 H mEq/L 01/30/2024 09:06 UREA NITROGEN 16.1 mg/dL 01/30/2024 09:06 CREATININE 1.08 mg/dL 01/30/2024 09:06 CALCIUM 9.8 mg/dL 01/30/2024 09:06 CARBON DIOXIDE 22 mEq/L 01/30/2024 09:06 GLUCOSE 128 H mg/dL 01/30/2024 09:06 EGFR (CKD-EPI 2020) 66.42 01/30/2024 09:06 These readings are within normal limits. Your blood sugar is high due to diabetes. LIVER FUNCTION PANEL - These are tests for liver function: PROTEIN 6.6 g/dL 01/30/2024 09:06 ALBUMIN 4.4 g/dL 01/30/2024 09:06 TOTAL BILIRUBIN 0.9 mg/dL 01/30/2024 09:06 ALKALINE PHOSPHATASE 71 U/L 01/30/2024 09:06 AST/SGOT 17 U/L 01/30/2024 09:06 ALT/SGPT 16 U/L 01/30/2024 09:06 These readings are within normal limits. TSH - Thyroid-stimulating hormone (also known as TSH or thyrotropin) is a peptide hormone synthesized and secreted by thyrotrope cells in the anterior pituitary gland, which regulates the endocrine function of the thyroid gland. TSH 0.767 uIU/mL 01/30/2024 09:06 These readings are within normal limits. VITAMIN D - Helps promote the proper utilization of calcium and phosphorus, thereby producing proper bone maintenance. VITAMIN D, 25-HYDROXY 62.4 ng/mL 01/30/2024 09:06 These readings are within normal limits. PLAN Please continue your treatment as we discussed during your visit. If you have any questions please call your correctional case records supervisor. I look forward to seeing you at your next clinic appointment. Thank you for choosing the [facility] for your healthcare. FUTURE APPOINTMENTS: 10/29/2024 09:00 [facility] TM 13 PCP Sincerely, RICO RASCON MD CHIEF GERIATRICS, PRIMARY CARE LIZET,DEIS RASCON,RICO Chirinos [facility] Jan 30, 2024 10:03 AM NURSING NOTE: LOCAL TITLE: V15 PACT FACE TO FACE NOTE STL STANDARD TITLE: NURSING NOTE DATE OF NOTE: JAN 30, 2024@10:03 ENTRY DATE: JAN 30, 2024@10:04:03 AUTHOR: KONRAD FISH EXP COSIGNER: URGENCY: STATUS: COMPLETED Provider Visit:Dr Rascon Patient Identifiers : Full Name Date of Reason for visit: Established Follow-Up Mode of Arrival: Ambulatory Allergy Review: Patient has answered NKA Allergy list reviewed and remains current. Recent Vital Signs: Temperature: 98.5 F [36.9 C] (01/30/2024 10:02) Pulse: 59 (01/30/2024 10:02) Respiration: 18 (01/30/2024 10:02) B/P: 114/70 (01/30/2024 10:02) Pain: 0 (01/30/2024 10:02) Wt: 150 lb [68.04 kg] (01/30/2024 10:02) Ht: 67 in [170.2 cm] (01/30/2024 10:02) BMI: 23.5 POX: 98% (01/30/2024 10:02) Would you like to discuss any personal problem, family problem, alcohol use, drug use, or a mental or emotional illness? No Contact provided Primary Care phone number and encouraged to call if any questions or concerns. Review that after hours nurse line [phone] and emergency room are available 05/12 for patient use. Contact verbalized fair understanding. Suicide Screen: C-SSRS Screening [place]-Suicide Severity Rating Scale (C-SSRS Screener) 1. Over the past month, have you wished you were or wished you could go to sleep and not wake up? No 2. Over the past month, have you had any actual thoughts of killing yourself? No 3. Over the past month, have you been thinking about how you might do this? Response not required due to responses to other questions. 4. Over the past month, have you had these thoughts and had some intention of acting on them? Response not required due to responses to other questions. 5. Over the past month, have you started to work out or worked out the details of how to kill yourself? Response not required due to responses to other questions. 6. If yes, at any time in the past month did you intend to carry out this plan? Response not required due to responses to other questions. 7. In your lifetime, have you ever done anything, started to do anything, or prepared to do anything to end your life (for example, collected pills, obtained a gun, gave away valuables, went to the roof but didn't jump)? No 8. If YES, was this within the past 3 months? Response not required due to responses to other questions. Depression Screening: Perform PHQ-2 A PHQ-2 screen was performed. The score was 0 which is a negative screen for depression. Over the past two weeks, how often have you been bothered by the following problems? 1. Little interest or pleasure in doing things Not at all 2. Feeling down, depressed, or hopeless Not at all /paulino/ LEONARD Quezada Licensed Practical Nurse Signed: 01/30/2024 10:08 KONRAD FISH [facility] Jan 30, 2024 09:44 AM GERIATRIC MEDICINE NOTE: LOCAL TITLE: GERIATRIC PACT CLINIC [facility] STANDARD TITLE: GERIATRIC MEDICINE NOTE DATE OF NOTE: JAN 30, 2024@09:44 ENTRY DATE: JAN 30, 2024@09:45:01 AUTHOR: RICO RASCON EXP COSIGNER: URGENCY: STATUS: COMPLETED Type of Evaluation: Geriatric Follow-up Date of Visit: 01/30/24 10:00 Patient's SSN:[id number] EDIS HINDS is a 88 year old WHITE MALE. : Aug 88 y.o. cognitively intact, functionally independent M with hx of DMII, HTN, CAD, HLD, OA, CKD, COVID pneumonia in Jun 2020 who was last seen on 07/31/23 is here for routine follow up. Pt. had right inguinal hernia surgery 12/19/23 at [facility], was found to have loops of small bowel incarcerated. Pt. recovered well after surgery and his scars from the robotic surgery healed well. Pt. follows Dr. Matthew Walter MD (Heme-Onc) - last visit 10/02/23 - Anemia likely multifactorial, ferritin 56, Hgb 13.4, received iron infusion x 2. He is no longer taking iron supplement. He will have follow up with hematology later this week. Pt. is now taking asprin every other day. He is still having easy bruising on upper extremities. Pt. states that he is continuing to take trazodone 50 mg in middle of the night when he wakes up so that he can sleep the rest of the night otherwise he wakes up several times. He has noticed increase in urinary frequency, weak stream. Pt. is not interested in trialing tamsulosin and would like to wait and speak with his outside PCP since he gets all of his meds from outside of the DC. He denies any chest pains, shortness of breath, N/V/D, cough, congestion, fevers or chills. He has not had any recent falls. Adherence to Medications & Managed by: pt. self manages meds GERIATRIC REVIEW OF SYSTEMS: Change in weight: lost 4 lbs Appetite: good Dysphagia (specify with or without CVA): no Dentition: dentures Sleep: wakes up 12-1am then takes trazodone 50mg Vision: reading glasses, has eye exam in May Hearing: needs hearing aids Wounds/Ulcers: bruising on arms Peripheral neuropathy (specify with or without DM): no Constipation: no Incontinence: no Nocturia: 2x/night Fear of falling: no Assistive devices: none Recent Hospitalizations: Yes, see above Recent ER Visits: no PMH: 1) CAD - Coronary Artery Disease ([facility] [id number]) 2) Diabetes Mellitus Type 2 ([facility] [id number]) 3) Hyperlipidemia ([facility] [id number]) 4) HTN - Hypertension ([facility] [id number]) 5) Chronic Kidney Disease Stage 3 ([facility] [id number]) 6) OA - Osteoarthritis ([facility] [id number]) 7) Erectile dysfunction 8) Iron deficiency anemia OUTPATIENT MEDICATION RECONCILIATION: Review of the essential medication list for review at the time of this encounter included: Remote and local facility patient allergies, and active and pending prescriptions dispensed from this DC (local) and dispensed from another DC or [facility] facility (remote) as well as local inpatient and clinic medication, locally documented non-VA medications and local prescriptions that have or been discontinued in the past 90 days. With the exception of Allergies, if a category is not listed below, it means there were no relevant medications for the patient. The medication list was reviewed with the patient/caregiver: Yes Active Outpatient Medications (including Supplies): Active Non-VA Medications Status 1) Non-VA ACETAMINOPHEN 500MG TAB 500MG BY MOUTH EVERY ACTIVE EIGHT(8) HOURS NEEDED 2) Non-VA ASCORBIC ACID 500MG TAB 500MG BY MOUTH ONCE A ACTIVE DAY 3) Non-VA ATORVASTATIN CALCIUM 80MG TAB 40MG BY MOUTH ACTIVE EVERY EVENING 4) Non-VA CHOLECALCIF 50MCG (D3-2,000UNIT) TAB 50MCG BY ACTIVE MOUTH ONCE A DAY 5) Non-VA DAPAGLIFLOZIN 5MG TAB 5MG BY MOUTH ONCE A DAY ACTIVE 6) Non-VA FERROUS SULFATE TAB 150 BY MOUTH ONCE A DAY ACTIVE 7) Non-VA METFORMIN HCL 1000MG TAB 1000MG BY MOUTH TWICE ACTIVE A DAY WITH MEALS 8) Non-VA METOPROLOL SUCCINATE 50MG SA TAB 25MG BY MOUTH ACTIVE ONCE A DAY 9) Non-VA TRAZODONE HCL 100MG TAB 50MG BY MOUTH AT ACTIVE BEDTIME NEEDED Medication List was provided to the patient/caregiver at the end of the visit. ALLERGIES/ADR: Patient has answered NKA Vitals: BP: 114/70 (01/30/2024 10:02) Pulse: 59 (01/30/2024 10:02) RR: 18 (01/30/2024 10:02) Temp: 98.5 F [36.9 C] (01/30/2024 10:02) Pain: Measurement DT PAIN 01/30/2024 10:02 0 Weight: Measurement DT WEIGHT LB(KG)[BMI] 01/30/2024 10:02 150(68.04)[24] 07/31/2023 10:12 154(69.85)[25] BMI : 23.5 PE General: Thin WM in NAD HEENT:NC, AT, MMM CV:RRR S1 S2 no murmur Pulm:CTAB, no wheezes or crackles Abd:Well healed scar from hernia surgery, NT/ND Ext:No LE edema Neuro:Alert, Non-focal, able to complete chair stand without assistance Gait/Mobility: steady gait without an assistive device, normal speed LABS: CREATININE 1.09 mg/dL 09/01/2022 09:23 GLUCOSE 134 H mg/dL 09/01/2022 09:23 SODIUM 138 mEq/L 09/01/2022 09:23 POTASSIUM 4.4 mEq/L 09/01/2022 09:23 CHLORIDE 106 mEq/L (09/01/22 09:23) CARBON DIOXIDE 22 mEq/L 09/01/2022 09:23 CALCIUM 9.4 mg/dL (09/01/22 09:23) PROTEIN 6.7 g/dL 09/01/2022 09:23 ALBUMIN 4.4 g/dL 09/01/2022 09:23 TOTAL BILIRUBIN 0.7 mg/dL 09/01/2022 09:23 ALKALINE PHOSPHATASE 72 U/L 09/01/2022 09:23 AST/SGOT 13 U/L 09/01/2022 09:23 ALT/SGPT 11 U/L 09/01/2022 09:23 WBC 6.5 10*3/uL (01/30/24 09:06) RBC 4.69 10*6/uL (01/30/24 09:06) HCT 41.6 % (01/30/24 09:06) MCV 88.7 fL (01/30/24 09:06) HGB 14.1 g/dL 01/30/2024 09:06 Collection DT Specimen Test Name Result Units Ref Range 09/01/2022 09:23 BLOOD HGA1C 6.9 H % 4.0 - 6.0 03/03/2022 10:33 BLOOD HGA1C 6.4 H % 4.0 - 6.0 PLT 179 10*3/uL 01/30/2024 09:06 CHOLESTEROL 103 mg/dL 09/01/2022 09:23 HDL: 40 mg/dL (09/01/22 09:23) LDL: 51 mg/dL 09/01/2022 09:23 Trigs: 61 mg/dL (09/01/22 09:23) VITAMIN D, 25-HYDROXY 61.1 ng/mL 09/01/2022 09:23 B12 >2000 H pg/mL 09/01/2022 09:23 FOLATE (STL-MA) >40.0 H ng/mL 09/01/2022 09:23 ASSESSMENT AND PLAN: S/P Right inguinal hernia repair 12/19/23 - doing well DMII: Last A1C 6.7% Jun 2023(outside lab reports) - continue metformin and dapagliflozin (dose was increased by PCP from 5mg to 10 mg daily) - continue current meds and recheck A1C HTN/CAD/HLD: BP today 114/70 - Continue atorvastatin, Beta aura, ASA 81mg every other day - follow up with cardiology Iron deficiency anemia: s/p IV iron x 2 doses, ferritin more in normal range - no longer taking oral iron - follow up with hematology scheduled for later this week Insomnia - continue trazodone - discussed sleep hygiene BPH/Nocturia: has weak stream and urinary frequrncy every 1-3 hrs during the day and nocturia - pt. is not interested in starting more medications, plans to discuss with outside PCP at next visit. OA/Chronic pain: doing fine - continue Tylenol prn PREVENTION & HEALTH MAINTENANCE: - pt. does not want any vaccines - Updated labs today Age Friendly 4M's WHAT MATTERS: good health What Matters was addressed at this visit. MEDICATION Medications were addressed at this visit. MENTATION PHQ2 - negative Depression was addressed at this visit. MENTATION AD8: 0/ Dementia was addressed at this visit. MOBILITY: normal -------- Mobility was addressed at this visit. Life Sustaining Treatment Orders: no restrictions RTC:9 months per pt. preference [facility] MAP: PERSONAL HEALTH PLAN INVENTORY & MAP 's Response: Good health /es/ RICO RASCON MD CHIEF GERIATRICS, PRIMARY CARE Signed: 01/30/2024 11:44 RICO RASCON [facility]
--- OUTSIDE RECORDS SUMMARY | 2024-06-26 12:23 | XMS_ITS | Encounter Summary ---
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 Name Role Phone RICO RASCON Primary Care Provider Unavailmary e Insurance Providers: All historical and current [...] STAND GELY IND May 15, 2007 104 [id number] [phone] EDIS HINDS PATIENT [place] [employer] [place] FEP PREFERRED PROVIDER ORGANIZAT ION (PPO) FEP STAND GELY IND May 15, 2007 104 [id number] [phone] EDIS HINDS PATIENT [place] F[place] PREFERRED PROVIDER ORGANIZAT ION (PPO) FEP STAND GELY IND May 15, 2007 104 [id number] [phone] EDIS HINDS PATIENT [place] F[place] PREFERRED PROVIDER ORGANIZAT ION (PPO) FEP STAND GELY IND May 15, 2007 104 [id number] [phone] EDIS HINDS PATIENT MEDICARE (WNR) MEDICARE (M) PART B Nov 13, 2003 PART B [id number] EDIS HINDS PATIENT MEDICARE (WNR) MEDICARE (M) PART B Nov 13, 2003 PART B [id number] EDIS HINDS PATIENT MEDICARE (WNR) MEDICARE (M) PART A Aug 13, 2001 PART A [id number] EDIS HINDS PATIENT MEDICARE (WNR) MEDICARE (M) PART A Aug 13, 2001 PART A [id number] EDIS HINDS PATIENT MEDICARE (WNR) MEDICARE (M) PART A Aug 13, 2001 PART A [id number] EDIS HINDS PATIENT MEDICARE (WNR) MEDICARE (M) PART B Aug 13, 2001 PART B [id number] EDIS HINDS PATIENT Selected Encounter This section includes the information on record at [place] for the Encounter. Date/Time Encounter Type Encounter Description Reason Provider Source Apr 01, 2024 01:30 PM HEARING AID EXAM BOTH EARS AUDIOLOGY ICD-10-CM H90.3 Sensorineural hearing loss, bilateral YASMIN SULLIVAN Kendra Encounter Template Text not used by [place] Assessments - Encounter Diagnoses This section includes the primary and secondary diagnoses documented for the Encounter. Date/Time Primary/Secondary Diagnosis Diagnosis Name Provider Source Apr 01, 2024 02:02 PM PRIMARY Sensorineural hearing loss, bilateral NIGEL SULLIVAN [facility] Plan of Treatment: Future Appointments (+ 6 months) and Future Tests (+/- 45 days) The Plan of Treatment section includes future care activities for the patient from all [place] treatmentfacilities. This section includes future appointments and future orders which are active, pending or scheduled. Future Appointments This section includes appointments that were scheduled to occur 6 months from the date of the Encounter, up to a maximum of 20 appointments. The data comes from all [place] treatment facilities. Appointment Date/Time Appointment Type Appointme nt Facility Name Jun 27, 2024 10:00 AM AMBULATORY - SURGERY [facility] Social History: Smoking Status (Most current) and Tobacco Use (All prior to encounter date) This section includes the most current, and the historical, smoking and tobacco- related health factors from the [place] facility where the Encounter took place. Current Smoking Status This section includes the most current smoking, or tobacco-related health factor, from the [facility] facility where the [facility]counter took place. Date/Time Current Smoking Status Comment Gigi gauthier Jul 31, 2023 10:00 AM VA-TOBACCO FORMER USER [facility] Tobacco Use History This section includes a history of the smoking, or tobacco-related health factors, that were collected on or before the date of the Encounter. The data comes from the [place] facility where the Encounter took place. Date/Time Smoking Status/Tobacco Use Comment F acsilvia Jul 31, 2023 10:00 AM VA-TOBACCO QUIT 15 YRS OR MORE [facility] Mar 03, 2021 10:00 AM VA-TOBACCO FORMER USER [facility] Mar 03, 2021 10:00 AM VA-TOBACCO QUIT 15 YRS OR MORE [facility] Sep 07, 2020 08:00 AM VA-TOBACCO FORMER USER [facility] Sep 07, 2020 08:00 AM VA-TOBACCO QUIT 15 YRS OR MORE [facility] Jan 07, 2019 02:58 PM VA-TOBACCO FORMER USER [facility] Jan 07, 2019 02:58 PM VA-TOBACCO QUIT 15 YRS OR MORE [facility] Encounter Notes: All associated encounter notes This section contains the clinical notes associated to the Encounter. Date/Time Encounter Note(s) Provider Source Apr 01, 2024 01:32 PM AUDIOLOGY E & M NO TE: [facility] TITLE: AUDIO EVALS [facility] STANDARD TITLE: AUDIOLOGY E & M NOTE DATE OF NOTE: APR 01, 2024@13:32 ENTRY DATE: APR 01, 2024@13:33:01 AUTHOR: CHANO SULLIVAN COSIGNER: URGENCY: STATUS: COMPLETED SUBJECT: HEaring AUDIO EVALS [facility] Has ADDENDA Audiogram: Purpose of appointment: audio [x] [place] initiated visit Case history: Otoscopic evaluation: normal AU. 's main complaint is bilateral hearing loss. reports that his hearing has declined since his last test. denied any ear pain, pressure, fullness, dizziness/vertigo, tinnitus, history of otosurgery, history of TM perforation, and any recent ear infections. has never had VA-issued hearing devices. -[place] reports that he had non-VA BTE/DWAYNE style devices that are no good anymore. -[place] has an iPhone. Last evaluation on 04/25/2019. RESULTS: RIGHT EAR Audiometry (air and/or bone conduction): Hearing thresholds WNL at 0.25kHz, sloping to severe at 8kHz; stable since last test. SRT: 55 dB HL. WRS: Poor. 44% at 95 dB HL with 65 dB HL of contralateral masking noise. 68% at 105 dB HL with 75 dB HL of contralateral masking noise. [88% at last eval.] Tympanogram: type Ad Acoustic Reflexes: completed; artifact only. Ipsilateral: Present at 0.5kHz, 1kHz, 2kHz, & 4kHz. Contralateral: Absent at 0.5kHz, 1kHz, 2kHz, & 4kHz. LEFT EAR Audiometry (air and/or bone conduction): Hearing thresholds mild from 0.25kHz through 0.75kHz, sloping to profound at 8kHz; stable since last test. SRT: 55 dB HL with 25 dB HL of contralateral masking noise. WRS: Fair. 72% at 95 dB HL with 65 dB HL of contralateral masking noise. 60% at 105 dB HL with 75 dB HL of contralateral masking noise. [80% at last eval.] Tympanogram: type Ad Acoustic Reflexes: Ipsilateral: Present at 0.5kHz, 1kHz, & 2kHz; Artifact only at 4kHz. Contralateral: Artifact only at 0.5kHz, 1kHz, 2kHz, & 4kHz. BINAURAL (BOTH EARS) WRS: Poor. 68% at 100 dB HL in the right ear and 100 dB HL in the left ear. is a candidate for hearing aids. Counseled [place] regarding degree of loss. Discussed full-time commitment and realistic expectations of hearing aids. HAE to follow. HAE: Hearing Aid Exam performed today: [x] Binaural Otoscopy reveals clear canals. Appropriate evaluation of leads to hearing aid order. Ear mold impressions taken, all margins of otoblocks visualized with no gaps prior to impressions taken without incident. Hearing aids will be ordered and appointment requested for fitting. [x] Provider initiated visit [x] Experienced user: [place] had non-VA BTE/DWAYNE style devices. Discussed aids with [place] to include the following: STYLE: Showed [place] various demo aids in clinic from canal through DWAYNE style; prefers RICs. BATTERY TYPE: Discussed rechargeable vs disposable batteries; prefers rechargeable. COLOR: Beige to match skin. CONNECTIVITY: [place] has an iPhone device and is NOT interested in Bluetooth Connectivity. MATRIX: 2P chosen based on audiometric threshold. After discussion, [place] and clinician chose: PHONAK AUDEO I90-R DWAYNE in beige with 2P canal lock c-shells. RECOMMENDATIONS: 1. HAF sched. Program as [automatic - VC - Prev. User - iPhone(No BT)] /paulino/ GISELA RIVERA Staff Care Nurse RnSHANTA, LIONEL-A Signed: 04/01/2024 14:32 04/18/2024 ADDENDUM STATUS: COMPLETED Hearing aids certified in [employer] & prepped for HAF. /paulino/ GISELA Kline Care Nurse RnSHANTA, LIONEL-A Signed: 04/18/2024 13:03 GISELA SULLIVAN [facility]
--- OUTSIDE RECORDS SUMMARY | 2024-06-26 12:23 | XMS_ITS | Referral Summary ---
Author Organization [facility] [address] Address [address] [place] [address] Care Team Providers Care Sandblast Carver Name Role Phone Samaria Rosales MD Primary Care Provider [phone] Oleg Watts MD Unavailable [phone] Allergies No known active allergies Medications metFORMIN (GLUCOPHAGE) 1,000 mg tablet Take 1 tablet (1,000 mg total) by mouth 2 times daily Do not take morning of surgery 06/17/2008 Active metoprolol XL (TOPROL-XL) 25 mg extended release tablet Take 0.5 tablets (12.5 mg total) by mouth daily 07/13/2020 Active ascorbic acid (ascorbic acid with doron hips) 500 mg tablet,chewable Take 1 tablet/chew tab (500 mg total) by mouth daily Active atorvastatin (LIPITOR) 40 mg tablet Take 1 tablet (40 mg total) by mouth nightly 12/10/2023 Active traZODone (DESYREL) 50 mg tablet Take 1 tablet (50 mg total) by mouth nightly 10/31/2023 Active Farxiga 10 mg tablet Take 1 tablet (10 mg total) by mouth daily Do not take morning of surgery 11/20/2023 Active acetaminophen-c odeine (TYLENOL with CODEINE #3) 300-30 mg per tablet Take 1 tablet by mouth every 4 (four) hours as needed for pain 20 tablet 12/19/2023 Active Active Problems Problem Noted Date Diagnosed Date Pulmonary embolism 06/26/2020 Assessment & Plan (06/26/2020 10:31 AM FORGING ENGINEER): Noted slowly rising d-dimer over last several days with persistent hypoxia and intermittent NSVT on telemetry. CT PE on 06/26 with small subsegmental PE. Likely 2/2 COVID -start apixaban 10 BID x 7 > 5 BID for 3 months -LED to rule out DVT as well Anemia 06/23/2020 Assessment & Plan (06/26/2020 10:29 AM FORGING ENGINEER): Drop in Hgb 11 > 9.9. Possibly 2/2 dilution as WBC drop as well. No S/sx of bleeding -stable at 10 -CTM Assessment & Plan (06/23/2020 10:35 PM FORGING ENGINEER): Drop in Hgb 11 > 9.9. Possibly 2/2 dilution as WBC drop as well. No S/sx of bleeding -CTM Acute hypoxemic respiratory failure due to COVID-19 ([facility]) 06/21/2020 Assessment & Plan (06/26/2020 10:30 AM FORGING ENGINEER): Presented with general malaise and COVID test was positive on 06/12. Due to worsening SOB was on OSH from 06/17 to 06/19. Did not require O2 on discharge and treated with Dexamethasone. On arrival to [facility] ED, SpO2 90% on 4L. CXR with likely PNA. -now improved to 1L -continue to wean O2 as tolerated -c/w dex (06/17-06/26), remdesivir (06/21-06/25) -labs with lymphopenia, ddimer 1178 > 4523 > 5647, INR 1.7 > 1.6, CRP 113.6 > 95.9 > 112.2, ESR 61 > 60 > 54, will trend -PE as elsewhere -telemetry -precautions per hospital protocol and supportive care -walking O2 performed this AM with 0L needed with rest, 4L with exertion Assessment & Plan (06/23/2020 10:34 PM FORGING ENGINEER): Presented with general malaise and COVID test was positive on 06/12. Due to worsening SOB was on OSH from 2 to 06/19. Did not require O2 on discharge and treated with Dexamethasone. On arrival to [facility] ED, SpO2 90% on 4L. CXR with likely PNA. -now improved to 2L -continue to wean O2 as tolerated -c/w dex (06/17-06/26), remdesivir (06/21-06/25) -discuss CV plasma today, will give patient time to decide overnight -telemetry -precautions per hospital protocol and supportive care Assessment & Plan (06/22/2020 7:32 PM FORGING ENGINEER): - Presented with general malaise and COVID test was positive on 06/12 - Due to worsening SOB was on OSH from 06/17 to 06/19. Treated with Dexamethasone - On [facility] ED, SpO2 90% on 4L. - CXR w/ BL lung opacities. - Labs with leukopenia and increase D dimers (1178), SED rate (61) and CRP (133). - Treatment- Dex (started 06/17) and remdesivir Assessment & Plan (06/21/2020 3:08 PM FORGING ENGINEER): - Presented with general malaise and COVID test was positive on 06/12 - Due to worsening SOB was on OSH from 06/17 to 06/19. Treated with Dexamethasone - On [facility] ED, SpO2 90% on 4L. - CXR w/ BL lung opacities. - Labs with lymphopenia and increase D dimers (1178), SED rate (61) and CRP (133). - Treatment- Dexamethasone (started 06/17) and remdesivir Leucopenia 06/21/2020 Assessment & Plan (06/24/2020 2:20 PM FORGING ENGINEER): Now improving, but lymphopenia persistent, 2/2 COVID - CTM Assessment & Plan (06/23/2020 10:23 PM FORGING ENGINEER): Now improving, but lymphopenia persistent, 2/2 COVID - CTM Assessment & Plan (06/22/2020 7:32 PM FORGING ENGINEER): - Due to COVID - CTM Assessment & Plan (06/21/2020 3:15 PM FORGING ENGINEER): - Due to COVID - CTM High anion gap metabolic acidosis 06/21/2020 Assessment & Plan (06/24/2020 2:21 PM FORGING ENGINEER): AG on admission 17, Lactate up to 3, likely 2/2 Lactic acidosis -AG now resolved, lactate 2.4 > 2.0 Assessment & Plan (06/23/2020 10:25 PM FORGING ENGINEER): AG on admission 17, Lactate up to 3, likely 2/2 Lactic acidosis -AG now resolved, lactate 2.4 -trend lactate to normal Assessment & Plan (06/22/2020 7:31 PM FORGING ENGINEER): - AG 17 on the ED. Lactic acid was 3 - Most likely due to lactic acidosis and possible component of DKI - BGs was controled - Infection treatment as mentioned Assessment & Plan (06/21/2020 3:14 PM FORGING ENGINEER): - Control hyperglycemia - Order lactic acid - IVF - CTM HTN (hypertension) 06/21/2020 Assessment & Plan (06/24/2020 2:20 PM FORGING ENGINEER): - c/w home lisinopril 2.5 mg Assessment & Plan (06/23/2020 10:24 PM FORGING ENGINEER): - c/w home lisinopril 2.5 mg Assessment & Plan (06/22/2020 7:32 PM FORGING ENGINEER): - Continue home lisinopril 2.5 mg Assessment & Plan (06/21/2020 3:15 PM FORGING ENGINEER): - Continue home lisinopril 2.5 mg Steroid-induced hyperglycemia 06/21/2020 Assessment & Plan (06/26/2020 10:28 AM FORGING ENGINEER): A1c 7.4%. Persistently elevated BG on admission, likely 2/2 steroids -BG elevated again overnight Increase to NPH 30 units given with steroids + SSI -will d/c NPH after completed steroids tomorrow Assessment & Plan (06/23/2020 10:22 PM FORGING ENGINEER): A1c 7.4%. Persistently elevated BG on admission, likely 2/2 steroids -uptitrated to NPH 8u q6 with drop in BG down to 62 this AM -decrease back to NPH 6u q8 + SSI Assessment & Plan (06/21/2020 4:48 PM FORGING ENGINEER): - Due to steroid - At the moment patient may need IV insulin (mild AG). If AG close, recommend to start NPH 5u q 6 hrs and MDSSI - May need higher dose of insulin Assessment & Plan (06/21/2020 3:16 PM FORGING ENGINEER): - Due to steroid - For now MDSSI - May need higher dose of insulin COVID-19 06/15/2020 Pain in joint of left shoulder 03/20/2019 Stage 3 chronic kidney disease 03/12/2018 Assessment & Plan (06/24/2020 2:20 PM FORGING ENGINEER): Prior to admission appeared baseline Cr 1.1 -s/p IVF -now improved to b/l ~0.8-0.9 -CTM Assessment & Plan (06/23/2020 10:23 PM FORGING ENGINEER): Prior to admission appeared baseline Cr 1.1 -s/p IVF -now improved to b/l ~0.8 -CTM Assessment & Plan (06/22/2020 7:33 PM FORGING ENGINEER): - BL Cr 1.1 - IVF Assessment & Plan (06/21/2020 3:11 PM FORGING ENGINEER): - BL Cr 1.1 - IVF Osteoarthritis of knee 03/12/2018 Benign hypertension 01/29/2018 Assessment & Plan (06/22/2020 7:26 PM FORGING ENGINEER): - Continue lisinopril 2.5 mg Assessment & Plan (06/21/2020 3:08 PM FORGING ENGINEER): - Continue lisinopril 2.5 mg Coronary arteriosclerosis 01/29/2018 Assessment & Plan (06/24/2020 2:21 PM FORGING ENGINEER): - ASA 81 mg and atorvastatin 40 qd Assessment & Plan (06/23/2020 10:31 PM FORGING ENGINEER): - ASA 81 mg and atorvastatin 40 qd Assessment & Plan (06/22/2020 7:28 PM FORGING ENGINEER): - ASA 81 mg and statin Assessment & Plan (06/21/2020 3:11 PM FORGING ENGINEER): - ASA 81 mg and statin Diabetes mellitus 01/29/2018 Assessment & Plan (06/26/2020 10:29 AM FORGING ENGINEER): A1c 7.4%. Home Metformin 1000 BID + farxiga 5 every day -hold home meds -c/w NPH 30 with dex + SSI as elsewhere due to steroids, but will d/c back on home meds Assessment & Plan (06/23/2020 10:28 PM FORGING ENGINEER): A1c 7.4%. Home Metformin 1000 BID + farxiga 5 every day -hold home meds -c/w NPH 6 q8 + SSI as elsewhere due to steroids Assessment & Plan (06/22/2020 7:32 PM FORGING ENGINEER): - A1c 6.7 - Hold home metformin - May need IV insulin at the moment (BGs 300 and AG 17) - NPH 8u q 6 hrs and MDSSI - Most likely patient will need higher insulin due to steroid Assessment & Plan (06/21/2020 3:13 PM FORGING ENGINEER): - A1c 6.7 - Hold home metformin - Start SSI - Most likely patient will need higher insulin due to steroid Hyperlipidemia 01/29/2018 Assessment & Plan (06/24/2020 2:20 PM FORGING ENGINEER): - c/w atorvastatin 40 mg Assessment & Plan (06/23/2020 10:24 PM FORGING ENGINEER): - c/w atorvastatin 40 mg Assessment & Plan (06/22/2020 7:32 PM FORGING ENGINEER): - atorvastatin 40 mg Assessment & Plan (06/21/2020 3:15 PM FORGING ENGINEER): - atorvastatin 40 mg Primary erectile dysfunction 01/29/2018 Carotid atherosclerosis 02/09/2017 Essential hypertension 11/02/2012 Resolved Problems Problem Noted Date Diagnosed Date Resolved Date SIRS (systemic inflammatory response syndrome) 06/22/2020 06/22/2020 Pneumonia due to COVID-19 virus 06/21/2020 06/21/2020 Carotid bruit 10/22/2012 06/21/2020 Social History Tobacco Use Types Packs/Day Years Used Date Smoking Tobacco: Former Cigarettes Q uit: 1994 Smokeless Tobacco: Never Tobacco Cessation:Counseling Given: Not Answered Passive Exposure Comments:quit 36 years ago AUDIT-C Answer Date Recorded Q1: How often do you have a drink containing alcohol? Never 12/19/2023 Q2: How many drinks containi ng alcohol do you have on a typical day when you are drinking? Patient does not drink Q3: How often do you have si x or more drinks on one occasion? Never 12/19/2023 Personal Safety Answer Date Recorded Have you ever been in or are you currently in a harmful physical or emotional relationship or is someone making you feel afraid or unsafe? Denies 12/19/2023 Sex and Gender Information Value Date Recorded Sex Assigned at Not on file Legal Sex Male 3:16 AM FORGING ENGINEER Gender Identity Not on file Sexual Orientation Not on file Last Filed Vital Signs Vital Sign Reading Time Taken Comments Blood Pressure 139/73 02/19/2024 2:08 PM CDT Pulse 67 02/19/2024 2:07 PM CDT Temperature 36.8 C (98.2 F) 02/19/2024 2:07 PM CDT Respiratory Rate 18 12/19/2023 3:05 PM CDT Oxygen Saturation 97% 02/19/2024 2:07 PM CDT Inhaled Oxygen Concentration - - Weight 68.4 kg (150 lb 12.8 oz) 02/19/2024 2:07 PM CDT Height 170.2 cm (5' 7 ) 02/19/2024 2:07 PM CDT Body Mass Index 23.62 02/19/2024 2:07 PM CDT Plan of Treatment Not on file Medical Devices Implanted Type Area Signals Collector/Analyst Device Identifier Shelf Expiration Date Model / Serial / Lot [employer] Bard Mesh Surgical Mid Anatomical Synthetic Patch 3dmax 5x7in [id number] - [id number] Implanted:Qty: 1 on 12/19/2023 by Oleg Watts MD at [facility] Mesh Right: Abdomen [employer] Bard [id number] 07/12/2028 [id number] / / [id number] Bilateral Knee Replacement Bilateral: Knee Procedures Procedure Name Priority Date/Time Associated Diagnosis Comments EGFR Routine 12/13/2023 10:52 AM CDT Preop testing HEMOGLOBIN A1C Routine 12/13/2023 10:52 AM CDT Pre-op testing Encounter for screening for diabetes mellitus LIPID PANEL STAT 06/21/2020 10:46 AM FORGING ENGINEER from Last 3 Months or Most Recently Relevant to Health Maintenance Results * eGFR (12/13/2023 10:52 AM CDT) eGFR 72 >=60 mL/min/1. 73 m2 GIGI SMITH Comment: Interpretive Data Reference Interval Normal >/= 90 mL/min/1.73m2 Mildly decreased* 60 - 89 mL/min/1.73m2 Mildly to moderately decreased 45 - 59 mL/min/1.73m2 Moderately to severely decreased 30 - 44 mL/min/1.73m2 Severely decreased 15 - 29 mL/min/1.73m2 Kidney Failure < 15 mL/min/1.73m2 *Relative to young adult level Estimated glomerular filtration rate is determined by the 2020 CKD-EPI equation recommended by the National Kidney Foundation (A Unifying Approach to GFR Estimation: Recommendations of the NKF-ASK Task Force on Reassessing the Inclusion of Race in Diagnosing Kidney Disease, JASN 2020). The CKD-EPI equation should not be used for patients with unstable renal function and has not been validated in children and those over 70. Current interpretive data was last reviewed 2021. Blood 12/13/2023 10:5 2 AM CDT 12/13/2023 11:01 AM CDT Vita Keller NP LAB BLOOD ORDERABLES Final Result Performing Organization Address [facility] de Phone Number [address] [address] * (ABNORMAL) Hemoglobin A1c (12/13/2023 10:52 AM CDT) Hgb A1C 8.1(H) 4.0 - 5.6 % GIGI Estimated Average Glucose 186 mg/dL GIGI Comment: The ADA recommends reporting an estimated Average Glucose (eAG) with all Hemoglobin A1c results using the equation derived from a study of 507 normal and diabetic adults. Minority populations were underrepresented and children were not included. (Diabetes Care 31:0341-3263, 2007). The eAG is not equivalent to a fasting glucose. Blood 12/13/2023 10:5 2 AM CDT 12/13/2023 11:01 AM CDT Vita Keller NP LAB BLOOD ORDERABLES Final Result Performing Organization Address [facility] de Phone Number [address] [address] * (ABNORMAL) Lipid panel (06/21/2020 10:46 AM FORGING ENGINEER) Cholesterol 86 30 - 199 mg/dL GIGI [facility] Comment: Interpretive Data Ages < or = 19 years Acceptable: <170 mg/dL Borderline high: 170-199 mg/dL High: >or= 200 mg/dL Ages > or = 20 years Desirable: <200 mg/dL Borderline high: 200-239 mg/dL High: >or= 240 mg/dL Literature References: 1. Expert Panel on Integrated Guidelines for Cardiovascular Health and Risk Reduction in Children and Adolescents. Pediatrics 2011;128:S213 2. NCEP Expert Panel. Circulation 2004;110:227 Current Interpretive Data was last revised on 2018. Triglycerides 119 <=149 mg/dL [facility] Comment: Interpretive Data Ages < or = 9 years Acceptable: <75 mg/dL Borderline high: 75-99 mg/dL High: >or= 100 mg/dL Ages 10 to 20 years Acceptable: <90 mg/dL Borderline high: 90-129 mg/dL High: >or= 130 mg/dL Ages > or = 20 years Desirable: <150 mg/dL Borderline high: 150-199 mg/dL High: 200-499 mg/dL Very high: >or= 499 mg/dL Literature References: 1. Expert Panel on Integrated Guidelines for Cardiovascular Health and Risk Reduction in Children and Adolescents. Pediatrics 2011;128:S213 2. NCEP Expert Panel. Circulation 2004;110:227 Current Interpretive Data was last revised on 2018. HDL 36(L) >=40 mg/dL [facility] Comment: Interpretive Data Ages < or = 19 years Acceptable: >45 mg/dL Borderline low: 40-45 mg/dL Low: <40 mg/dL Ages > or = 20 years Desirable: >or= 60 mg/dL Low: <40 mg/dL Literature References: 1. Expert Panel on Integrated Guidelines for Cardiovascular Health and Risk Reduction in Children and Adolescents. Pediatrics 2011;128:S213 2. NCEP Expert Panel. Circulation 2004;110:227 Current Interpretive Data was last revised on 2018. LDL, calculated 26 <=129 mg/dL [facility] Comment: Interpretive Data Ages < or = 19 years Acceptable: <110 mg/dL Borderline high: 110-129 mg/dL High: >or= 130 mg/dL Ages > or = 20 years Optimal: <100 mg/dL Near optimal: 100-129 mg/dL Borderline high: 130-159 mg/dL High: >160 mg/dL Literature References: 1. Expert Panel on Integrated Guidelines for Cardiovascular Health and Risk Reduction in Children and Adolescents. Pediatrics 2011;128:S213 2. NCEP Expert Panel. Circulation 2004;110:227 Current Interpretive Data was last revised on 2018. Non-HDL Cholesterol 50 mg/dL [facility] Comment: Interpretive Data Ages < or = 19 years Acceptable: <120 mg/dL Borderline high: 120-144 mg/dL High: >145 mg/dL Ages > or = 20 years When triglycerides are >200 mg/dL, Non-HDL cholesterol is a secondary target of therapy with treatment goals that are 30 mg/dL greater than the LDL cholesterol target. Literature References: 1. Expert Panel on Integrated Guidelines for Cardiovascular Health and Risk Reduction in Children and Adolescents. Pediatrics 2011;128:S213 2. NCEP Expert Panel. Circulation 2004;110:227 Current Interpretive Data was last revised on 2018. Chol/HDL ratio 2 [facility] VENEGAS Blood specimen (specimen) 06/21/2020 10:46 AM FORGING ENGINEER 06/21/2020 10:52 AM FORGING ENGINEER us Stan Pedroza MD LAB BLOOD ORDERABLES Nida alvares Result GIGI [facility] Department [place] [address] from Last 3 Months or Most Recently Relevant to Health [place] [address] [facility] FEDERAL MEDICARE [facility] [employer] [facility]PO MEDICARE [facility] ACCESS MEDICARE [facility] [place] [address] MEDICARE [facility] Advance Directives For more information, please contact: [phone] * Full Code (Latest Code Status on File) Date Activated Date Inactivated Comments 06/21/2020 7:01 PM 06/26/2020 8:39 PM Care Teams Sandblast Carver Relationship Specialty Start Date End Date Samaria Rosales MD [address] [place] [address] [address] [place] [address] PCP - General 01/12/17 Oleg Watts MD [address] [place] [id number] Consulting Physician General Surgery 12/19/23
--- OUTSIDE RECORDS SUMMARY | 2024-06-26 12:23 | XMS_ITS ---
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 Name Role Phone RICO RASCON Primary Care [...] STAND GELY IND May 15, 2007 104 [id number] [phone] EDIS HINDS PATIENT ANTHEM [place] FEP PREFERRED PROVIDER ORGANIZAT ION (PPO) FEP STAND GELY IND May 15, 2007 104 [id number] [phone] EDIS HINDS PATIENT [place] PREFERRED PROVIDER ORGANIZAT ION (PPO) FEP STAND GELY IND May 15, 2007 104 [id number] [phone] EDIS HINDS PATIENT [place] PREFERRED PROVIDER ORGANIZAT ION (PPO) FEP STAND GELY IND May 15, 2007 104 [id number] [phone] EDIS HINDS PATIENT MEDICARE (WNR) MEDICARE (M) PART B Nov 13, 2003 PART B [id number] EDIS HINDS PATIENT MEDICARE (WNR) MEDICARE (M) PART B Nov 13, 2003 PART B [id number] [phone] EDIS HINDS PATIENT MEDICARE (WNR) MEDICARE (M) PART A Aug 13, 2001 PART A [id number] [phone] EDIS HINDS PATIENT MEDICARE (WNR) MEDICARE (M) PART A Aug 13, 2001 PART A [id number] [phone] EDIS HINDS PATIENT MEDICARE (WNR) MEDICARE (M) PART A Aug 13, 2001 PART A [id number] EDIS HINDS PATIENT MEDICARE (WNR) MEDICARE (M) PART B Aug 13, 2001 PART B [id number] [phone] EDIS HINDS PATIENT Selected Encounter This section includes the information on record at [place] for the Encounter. Date/Time Encounter Type Encounter Description Reason Provider Source Jul 31, 2023 10:00 AM OFFICE O/P EST MOD 30 MIN GERIPACT ICD-10-CM I10 Essential (primary) hypertension RICO RASCON Kendra Encounter Template Text not used by [place] Assessments - Encounter Diagnoses This section includes the primary and secondary diagnoses documented for the Encounter. Date/Time Primary/Secondary Diagnosis Diagnosis Name Provider Source Aug 10, 2023 02:02 PM PRIMARY Essential (primary) hypertension RICO RASCON [facility] Aug 10, 2023 02:02 PM SECONDARY Athscl heart disease of [place] coronary artery w/o ang pctrs RICO ARSCON [facility] Aug 10, 2023 02:02 PM SECONDARY Hyperlipidemia, unspecified RICO RASCON [facility] Aug 10, 2023 02:02 PM SECONDARY Iron deficiency anemia, unspecified RICO RASCON [facility] Aug 10, 2023 02:02 PM SECONDARY Type 2 diabetes mellitus without complications RICO RASCON [facility] Aug 10, 2023 02:02 PM SECONDARY Unspecified osteoarthritis, unspecified site RICO RASCON [facility] Plan of Treatment: Future Appointments (+ 6 months) and Future Tests (+/- 45 days) The Plan of Treatment section includes future care activities for the patient [facility] This section includes future appointments and future orders which are active, pending or scheduled. Future Appointments This section includes appointments that were scheduled to occur 6 months from the date of the Encounter, up to a maximum of 20 appointments. The data comes from all [facility]. Appointment Date/Time Appointment Type Appointme nt Facility Name Jan 30, 2024 10:00 AM AMBULATORY - MEDICINE [facility] Active, Pending, and Scheduled Orders This section includes a listing of several types of active, pending, and scheduled orders, including clinic medications orders, diagnostic test orders, procedure orders and consult orders; where the start date of the order is 45 days before the date of the Encounter or 45 days after the date of theEncounter. The data comes from all [facility]. Test Date/Time Test Type Test Details Facility Name Jul 31, 2023 12:00 AM Laboratory - Chemistry Order CBC BLOOD [facility] Jul 31, 2023 12:00 AM Laboratory - Chemistry Order COMPREHENSIVE METABOLIC PANEL GREEN LI/HEP BLD/PLAS PLASMA [facility] Jul 31, 2023 12:00 AM Laboratory - Chemistry Order HGA1C BLOOD [facility] Jul 31, 2023 12:00 AM Laboratory - Chemistry Order LIPID PANEL (STL) GREEN LI/HEP BLD/PLAS PLASMA [facility] Jul 31, 2023 12:00 AM Laboratory - Chemistry Order TSH (MA-PB-STL) GOLD/RED SST SERUM [facility] Jul 31, 2023 12:00 AM Laboratory - Chemistry Order FOLATE (STL-MA) GOLD/RED SST SERUM [facility] Jul 31, 2023 12:00 AM Laboratory - Chemistry Order B12 GOLD/RED SST SERUM [facility] Jul 31, 2023 12:00 AM Laboratory - Chemistry Order VITAMIN D, 25-HYDROXY GOLD/RED SST SERUM [facility] Jul 31, 2023 12:00 AM Laboratory - Chemistry Order FERRITIN GOLD/RED SST SERUM [facility] Jul 31, 2023 12:00 AM Laboratory - Chemistry Order IRON/TIBC PROFILE GOLD/RED SST SERUM [facility] Vital Signs: All taken on the encounter date This section contains inpatient and outpatient Vital Signs collected on the date of the Encounter. Date/Time Temperature Pulse Blood Pressure Respiratory Rate SP02 Pain Height Weight Body Mass Index Source Jul 31, 2023 10:12 AM 126/70 [facility] Jul 31, 2023 10:12 AM 97.6 72 138/71 18 99 0 66.5 154 25 [facility] N Social History: Smoking Status (Most current) and Tobacco Use (All prior to encounter date) This section includes the most current, and the historical, smoking and tobacco- related health factors from the [place] facility where the Encounter took place. Current Smoking Status This section includes the most current smoking, or tobacco-related health factor, from the [place] facility where the Encounter took place. Date/Time Current Smoking Status Comment Facil ity Jul 31, 2023 10:00 AM VA-TOBACCO FORMER USER [facility] Tobacco Use History This section includes a history of the smoking, or tobacco-related health factors, that were collected on or before the date of the Encounter. The data comes from the [place] facility where the Encounter took place. Date/Time Smoking Status/Tobacco Use Comment F acility Jul 31, 2023 10:00 AM VA-TOBACCO QUIT 15 YRS OR MORE [facility] Mar 03, 2021 10:00 AM VA-TOBACCO FORMER USER [facility] Mar 03, 2021 10:00 AM VA-TOBACCO QUIT 15 YRS OR MORE [facility] Sep 07, 2020 08:00 AM VA-TOBACCO FORMER USER [facility] Sep 07, 2020 08:00 AM VA-TOBACCO QUIT 15 YRS OR MORE [facility] Jan 07, 2019 02:58 PM VA-TOBACCO FORMER USER [facility] Jan 07, 2019 02:58 PM VA-TOBACCO QUIT 15 YRS OR MORE [facility] Encounter Notes: All associated encounter notes This section contains the clinical notes associated to the Encounter. Date/Time Encounter Note(s) Provider Source Aug 29, 2023 01:30 PM ADDENDUM: LOCAL TITLE: Addendum STANDARD TITLE: ADDENDUM DATE OF NOTE: AUG 29, 2023@13:30:38 ENTRY DATE: AUG 29, 2023@13:30:39 AUTHOR: RESHMA WOLF EXP COSIGNER: URGENCY: STATUS: COMPLETED fax received from Dr. Samaria Rosales MD,[facility] According to records, [facility] 07/05/2023. for hypertension f/u.Includes labs and medication list, current immunizations. F/u 2 weeks Will forward to for review and send to [facility]. /paulino/ Reshma Wolf TRANSFER MACHINE OPERATOR REGISTERED NURSE Signed: 08/29/2023 13:33 Receipt Acknowledged By: 08/29/2023 15:05 /paulino/ RICO RASCON MD CHIEF GERIATRICS, PRIMARY CARE --- Original Document --- 07/31/23 GERIATRIC PACT CLINIC [facility]: Type of Evaluation: Geriatric Follow-up Date of Visit: 07/31/23 10:00 Patient's SSN:[id number] EDIS HINDS is a 87 year old WHITE MALE. : Aug CC: Routine Follow Up HPI: 87 y.o. cognitively intact, functionally independent M with hx of DMII, HTN, CAD, HLD, OA, CKD, recent COVID pneumonia in Jun 2020 who was last seen on 09/01/22 is here for routine yearly follow up. Pt[facility] Pt. states that he has been doing well. He follows his outside PCP, Dr. Jeffries every 6 months. His most recent update is that he has been consistently anemic, and received his first iron infusion last week. He states he already feels much better, and is getting his next infusion next Monday. He is also no longer taking tramadol, as he says this was likely contributing to his anemia. He currently alternates taking melatonin and trazadone to help with sleep. He remains active and has not had any falls. Mood is good. Pt. and do not have any concerns regarding memory or thinking. Iron infusion last week per PCP. Next infusion is next Monday. Adherence to Medications & Managed by: Patient. GERIATRIC REVIEW OF SYSTEMS: Change in weight: denies Appetite: doing good Dysphagia (specify with or without CVA): denies Dentition: Sleep: sleeps on and off during the night Vision: wears reading glasses. Hearing: wears hearing aids Wounds/Ulcers: Peripheral neuropathy (specify with or without DM): Constipation: usually daily Incontinence: denies Nocturia: 1x Fear of falling: denies Assistive devices: none Recent Hospitalizations: denies Recent ER Visits: denies Falls The [place] has not fallen in the last 12 months. PMH: 1) CAD - Coronary Artery Disease ([facility] [id number]) 2) Diabetes Mellitus Type 2 ([facility] [id number]) 3) Hyperlipidemia ([facility] [id number]) 4) HTN - Hypertension ([facility] [id number]) 5) Chronic Kidney Disease Stage 3 ([facility] [id number]) 6) OA - Osteoarthritis ([facility] [id number]) 7) Erectile dysfunction 8) Iron deficiency anemia OUTPATIENT MEDICATION RECONCILIATION: Review of the essential medication list for review at the time of this encounter included: Remote and local facility patient allergies, and active and pending prescriptions dispensed from this [facility] (local) and dispensed from another [place] or [facility] facility (remote) as well as local inpatient [...] EVERY ACTIVE EIGHT(8) HOURS NEEDED 2) Non-VA ASPIRIN 81MG EC TAB 81MG BY MOUTH ONCE A DAY ACTIVE 3) Non-VA ATORVASTATIN CALCIUM 80MG TAB 40MG [...] MOUTH ACTIVE ONCE A DAY 9) Non-VA TRAMADOL HCL 50MG TAB 1 TABLET BY MOUTH EVERY ACTIVE EIGHT(8) HOURS NEEDED 10) Non-VA TRAZODONE HCL 100MG TAB 50MG BY MOUTH AT ACTIVE BEDTIME NEEDED Medication List was provided to the patient/caregiver at the end of the visit. ALLERGIES/ADR: Patient has answered NKA VITALS: BP: 126/70 (07/31/2023 10:12) Pulse: 72 (07/31/2023 10:12) Temp: 97.6 F [36.4 C] (07/31/2023 10:12) RR: 18 (07/31/2023 10:12) Pain: 0 (07/31/2023 10:12) Weight: Measurement DT WEIGHT LB(KG)[BMI] 07/31/2023 10:12 154(69.85)[25] 09/01/2022 10:05 156.5(70.99)[25] Height: 66.5 in [168.9 cm] (07/31/2023 10:12) PE: General: in no acute distress HEENT: EOM intact CV: heart sounds normal, no m/r/g Pulm: CTAB Neuro: slightly decreased sensation on bilateral soles Gait: normal gait LABS: CMP: CREATININE 1.09 mg/dL 09/01/2022 09:23 GLUCOSE 134 [...] 09/01/2022 09:23 ALT/SGPT 11 U/L 09/01/2022 09:23 CBC: WBC 6.3 10*3/uL (09/01/22 09:23) RBC 4.48 10*6/uL (09/01/22 09:23) HCT 32.5 % L (09/01/22 09:23) MCV 72.5 fL L (09/01/22 09:23) HGB 9.4 L g/dL 09/01/2022 09:23 HGB A1C Collection DT Specimen Test Name Result Units Ref Range 09/01/2022 09:23 BLOOD HGA1C 6.9 H % 4.0 - 6.0 03/03/2022 10:33 BLOOD HGA1C 6.4 H % 4.0 - 6.0 09/01/2021 09:25 BLOOD HGA1C 6.4 H % 4.0 - 6.0 PLT 239 10*3/uL 09/01/2022 09:23 PSA: No PSA EO data found CHOLESTEROL 103 mg/dL 09/01/2022 09:23 HDL: 40 mg/dL (09/01/22 09:23) LDL: CALCULATED LDL 51 mg/dL 09/01/2022 09:23 Trigs: 61 mg/dL (09/01/22 09:23) No MICRAL data found VITAMIN D, 25-HYDROXY 61.1 ng/mL 09/01/2022 09:23 B12 >2000 H pg/mL 09/01/2022 09:23 FOLATE (STL-MA) >40.0 H ng/mL 09/01/2022 09:23 TSH 1.011 uIU/mL 09/01/2022 09:23 CHEST X-RAY: No Radiology exams found. ASSESSMENT AND PLAN: #Iron deficiency anemia - 07/21/23 labs: Hbg 10.5, ferritin 6, MCV 71 - S/p iron infusions - Encouraged to talk to livestock handler about discontinuing oral supplementation - Encouraged to discontinue taking B12 and folate supplementation #HTN: - Continue metoprolol 25mg #DMII: - Last A1C 6.7% - Continue metformin 1000mg BID and dapagliflozin 5mg #Chronic pain/arthritis - No longer takes tramadol - Encouraged to take Tylenol for pain #CAD/HLD: - Continue atorvastatin, Beta aura - No longer takes ASA - follow up with cardiology #Insomia - Encouraged to take melatonin 5mg 3 hours before bed and trazadone 50mg at bedtime - Can increase up to 100mg of trazadone if needed Age Friendly 4M's WHAT MATTERS What Matters was addressed at this visit. Comment: Good health. MEDICATION Medications were addressed at this visit. MENTATION Depression was addressed at this visit. MENTATION Dementia was addressed at this visit. MENTATION Delirium was addressed at this visit. MOBILITY -------- Mobility was addressed at this visit. PREVENTION & HEALTH MAINTENANCE: - We will skip labs today as he will be completing repeat labs at his next iron infusion. Plan to repeat labs at next follow up Life Sustaining Treatment Orders RTC: 1 year /paulino/ DAVIDE EATON HE[employer] PROFESSIONS TRAINEE Signed: 07/31/2023 13:01 /paulino/ RICO RASCON MD CHIEF GERIATRICS, PRIMARY CARE Cosigned: 07/31/2023 14:14 07/31/2023 ADDENDUM STATUS: COMPLETED Chart reviewed. Pt. seen, examined and discussed with Davide Eaton(MS4). I agree with her, history, physical exam, assessment and plan as outlined above. 87 y.o. cognitively intact, functionally independent M with hx of DMII, HTN, CAD, HLD, OA, CKD, COVID pneumonia in Jun 2020 who was last seen on 09/01/22 is here for routine follow up. Pt. 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 He recently had all labs drawn and brought the paperwork with him. He was referred to hematology due to iron deficiency anemia that was not correcting with oral iron so received IV iron infusion. He stopped taking tramadol becaus he read that it can couse anemia. He is having difficulty sleeping. It takes him two hrs to fall asleep and then he wakes up in two hrs and it again takes another two hours to fall back asleep. He has been alternating melatonin and trazodone and not taking both on the same day so that he would not over dose on meds. His weight is stable. He has not had any falls, recent ED visits or hospitalizations. Outside labs: 07/13/23 - WBC 5.7, Hgb 9.4, Hct 32.9, PLT 193, MCV 70.1, MCH 20.0, MCHC 28.6, Na 139, K 4.4, Cl 106, CO2 26, BUN 17, Cr 1.12, LFTs WNL, Urine Cr 70, Urine Alb 0.2, Alb/Cr ratio 3, Chol 99, HDL 51, TG 58, LDL 35, Total iron 77, TIBC 367, % saturation 21, Ferritin 6.Hgb A1c 6.7% 07/21/23: WBC 8.1, Hgb 10.5, Hct 36.2, PLT 234, Retic 1.42 ALLERGIES/ADR: Patient has answered NKA VITALS: BP: 126/70 (07/31/2023 10:12) Pulse: 72 (07/31/2023 10:12) Temp: 97.6 F [36.4 C] (07/31/2023 10:12) RR: 18 (07/31/2023 10:12) Pain: 0 (07/31/2023 10:12) Weight: Measurement DT WEIGHT LB(KG)[BMI] 07/31/2023 10:12 154(69.85)[25] 09/01/2022 10:05 156.5(70.99)[25] Height: 66.5 in [168.9 cm] (07/31/2023 10:12) PE General: Thin WM in NAD HEENT:NC, AT CV:RRR S1 S2 no murmur Pulm:CTAB, no wheezes or crackles Ext:No LE edema, foot exam documented below Neuro:Alert, Non-focal, able to complete chair stand without assistance Gait: steady gait without an assistive device, TUG - normal speed ASSESSMENT AND PLAN: Iron deficiency anemia: Ferritin down to 6, oral iron not helpful so now getting IV iron infusion. No bleed loss hx. - continue IV iron supplementation per hematology - consider discontinuing oral iron - discontinue B12 and Folate since last levels were high and pt. has still been taking these - follow up with hematology Insomnia - encouraged to take melatonin and trazodone daily - sleep hygiene HTN: Does not monitor bp at home, BP today 126/70 - Continue metoprolol. DMII: Last A1C 6.7% Jun 2023(outside lab reports) - continue metformin and dapagliflozin - continue current meds and recheck A1C and urine micral today Chronic pain/arthritis: no longer taking tramadol - continue Tylenol prn CAD/HLD: no longer on ASA - Continue atorvastatin, Beta aura - follow up with cardiology CKD: stable - Monitor PREVENTION & HEALTH MAINTENANCE: - pt. does not want any vaccines - foot exam cmpleted RTC: 6 months PAVE Foot Check: A complete foot check was completed at this encounter. VISUAL INSPECTION: Includes inspection for skin breaks, deformity, erythema, trauma, pallor on elevation, dependent rubor, nail deformities, extensive callus and pitting edema. Visual exam results: Normal PEDAL PULSES: Includes palpation of dorsalis and posterior tibial pulses and signs/symptoms of vascular compromise like pain, pallor, parasthesia or paralysis. Present (even if diminished) SENSORY CHECK: Includes 10 gram Monofilament (Bradner-Remigio) test of sensation. Intact (Greater than or equal to 80% of sites checked) Abnormal (Less than 80% of sites checked): Intact LOW-RISK LOW RISK FOOT EDUCATION: 1. Advised patient not to walk barefoot. Instructed the patient to pay close attention to the style and fit of shoes. 2. Explained the importance of daily foot checks. Explained that loss of sensation leads to callouses. Callouses break down, which result in ulcers that may lead to gangrene and amputation. 3. Stressed the importance of daily foot hygiene. Warm (not hot) bathing of the feet, complete drying and thorough inspection for changes in the condition of the skin constitute daily foot care. Demonstrated how to do a thorough foot check. 4. Emphasized the use of clean, non-restrictive socks/stockings and well fitting shoes. 5. Stressed the importance of immediate follow-up of any foot injuries or ulcers. Explained that he/she should be non-weight bearing whenever there are lesions on the foot, to prevent cellular damage. Level of Understanding: Good Ischemic HD/Post TX Follow Up: Aspirin is contraindicated for the following reason(s): other reason, documented below possible blood loss anemia Medication Reconciliation Opt STL: I have reviewed the patient's medication list (including active outpatient prescriptions [facility] from [facility] (local) and dispensed from another [facility] or [facility] facility (remote) as well as inpatient orders (local pending and active), local clinic medications, locally documented non-VA medications, and local prescriptions that have or been discontinued in the past 90 days.) with the patient and/or his/her care-occasional caregiver. Handwritten corrections, additions and/or deletions were made to the list, as appropriate. Corrected Outpatient Medication List was provided to the patient/caregiver. Active Outpatient Medications (including Supplies): Active Non-VA [...] 50MG BY MOUTH AT ACTIVE BEDTIME NEEDED /paulino/ RICO RASCON MD CHIEF GERIATRICS, PRIMARY CARE Signed: 07/31/2023 15:58 07/31/2023 ADDENDUM STATUS: COMPLETED Diabetes Hemoglobin A1c: Patient reports outside HGA1c done at a private facility. Location: PCP Date: July 13, 2023 Reported value: 6.7% Result 6.Dejuan /paulino/ RICO RASCON MD CHIEF GERIATRICS, PRIMARY CARE Signed: 07/31/2023 16:00 RESHMA WOLF [facility] Jul 31, 2023 10:34 AM GERIATRIC MEDICINE NOTE: LOCAL TITLE: GERIATRIC PACT CLINIC ST STANDARD TITLE: GERIATRIC MEDICINE NOTE DATE OF NOTE: JUL 31, 2023@10:34 ENTRY DATE: JUL 31, 2023@10:35 AUTHOR: DAVIDE EATON EXP COSIGNER: RICO RASCON URGENCY: STATUS: COMPLETED GERIATRIC PACT CLINIC [facility] Has ADDENDA Type of Evaluation: Geriatric Follow-up Date of Visit: 07/31/23 10:00 Patient's SSN:[id number] EDIS HINDS is a 87 year old WHITE MALE. : Aug CC: Routine Follow Up HPI: 87 y.o. cognitively intact, functionally independent M with hx of DMII, HTN, CAD, HLD, OA, CKD, recent COVID pneumonia in Jun 2020 who was last seen on 09/01/22 is here for routine yearly follow up. [facility] Pt. states that he has been doing well. He follows his outside PCP, Dr. Jeffries every 6 months. His most recent update is that he has been consistently anemic, and received his first iron infusion last week. He states he already feels much better, and is getting his next infusion next Monday. He is also no longer taking tramadol, as he says this was likely contributing to his anemia. He currently alternates taking melatonin and trazadone to help with sleep. He remains active and has not had any falls. Mood is good. Pt. and do not have any concerns regarding memory or thinking. Iron infusion last week per PCP. Next infusion is next Monday. Adherence to Medications & Managed by: Patient. GERIATRIC REVIEW OF SYSTEMS: Change in weight: denies Appetite: doing good Dysphagia (specify with or without CVA): denies Dentition: Sleep: sleeps on and off during the night Vision: wears reading glasses. Hearing: wears hearing aids Wounds/Ulcers: Peripheral neuropathy (specify with or without DM): Constipation: usually daily Incontinence: denies Nocturia: 1x Fear of falling: denies Assistive devices: none Recent Hospitalizations: denies Recent ER Visits: denies Falls The [place] has not fallen in the last 12 months. PMH: 1) CAD - Coronary Artery Disease ([facility] [id number]) 2) Diabetes Mellitus Type 2 ([facility] [id number]) 3) Hyperlipidemia ([facility] [id number]) 4) HTN - Hypertension ([facility] [id number]) 5) Chronic Kidney Disease Stage 3 ([facility] [id number]) 6) OA - Osteoarthritis ([facility] [id number]) 7) Erectile dysfunction 8) Iron deficiency anemia OUTPATIENT MEDICATION RECONCILIATION: Review of the essential medication list for review at the time of this encounter included: Remote and local facility patient allergies, and active and pending prescriptions dispensed from this [facility] (local) and dispensed from another [facility] or [facility] facility (remote) as well as local inpatient [...] EVERY ACTIVE EIGHT(8) HOURS NEEDED 2) Non-VA ASPIRIN 81MG EC TAB 81MG BY MOUTH ONCE A DAY ACTIVE 3) Non-VA ATORVASTATIN CALCIUM 80MG TAB 40MG [...] MOUTH ACTIVE ONCE A DAY 9) Non-VA TRAMADOL HCL 50MG TAB 1 TABLET BY MOUTH EVERY ACTIVE EIGHT(8) HOURS NEEDED 10) Non-VA TRAZODONE HCL 100MG TAB 50MG BY MOUTH AT ACTIVE BEDTIME NEEDED Medication List was provided to the patient/caregiver at the end of the visit. ALLERGIES/ADR: Patient has answered NKA VITALS: BP: 126/70 (07/31/2023 10:12) Pulse: 72 (07/31/2023 10:12) Temp: 97.6 F [36.4 C] (07/31/2023 10:12) RR: 18 (07/31/2023 10:12) Pain: 0 (07/31/2023 10:12) Weight: Measurement DT WEIGHT LB(KG)[BMI] 07/31/2023 10:12 154(69.85)[25] 09/01/2022 10:05 156.5(70.99)[25] Height: 66.5 in [168.9 cm] (07/31/2023 10:12) PE: General: in no acute distress HEENT: EOM intact CV: heart sounds normal, no m/r/g Pulm: CTAB Neuro: slightly decreased sensation on bilateral soles Gait: normal gait LABS: CMP: CREATININE 1.09 mg/dL 09/01/2022 09:23 GLUCOSE 134 [...] 09/01/2022 09:23 ALT/SGPT 11 U/L 09/01/2022 09:23 CBC: WBC 6.3 10*3/uL (09/01/22 09:23) RBC 4.48 10*6/uL (09/01/22 09:23) HCT 32.5 % L (09/01/22 09:23) MCV 72.5 fL L (09/01/22 09:23) HGB 9.4 L g/dL 09/01/2022 09:23 HGB A1C Collection DT Specimen Test Name Result Units Ref Range 09/01/2022 09:23 BLOOD HGA1C 6.9 H % 4.0 - 6.0 03/03/2022 10:33 BLOOD HGA1C 6.4 H % 4.0 - 6.0 09/01/2021 09:25 BLOOD HGA1C 6.4 H % 4.0 - 6.0 PLT 239 10*3/uL 09/01/2022 09:23 PSA: No PSA EO data found CHOLESTEROL 103 mg/dL 09/01/2022 09:23 HDL: 40 mg/dL (09/01/22 09:23) LDL: CALCULATED LDL 51 mg/dL 09/01/2022 09:23 Trigs: 61 mg/dL (09/01/22 09:23) No MICRAL data found VITAMIN D, 25-HYDROXY 61.1 ng/mL 09/01/2022 09:23 B12 >2000 H pg/mL 09/01/2022 09:23 FOLATE (STL-MA) >40.0 H ng/mL 09/01/2022 09:23 TSH 1.011 uIU/mL 09/01/2022 09:23 CHEST X-RAY: No Radiology exams found. ASSESSMENT AND PLAN: #Iron deficiency anemia - 07/21/23 labs: Hbg 10.5, ferritin 6, MCV 71 - S/p iron infusions - Encouraged to talk to livestock handler about discontinuing oral supplementation - Encouraged to discontinue taking B12 and folate supplementation #HTN: - Continue metoprolol 25mg #DMII: - Last A1C 6.7% - Continue metformin 1000mg BID and dapagliflozin 5mg #Chronic pain/arthritis - No longer takes tramadol - Encouraged to take Tylenol for pain #CAD/HLD: - Continue atorvastatin, Beta aura - No longer takes ASA - follow up with cardiology #Insomia - Encouraged to take melatonin 5mg 3 hours before bed and trazadone 50mg at bedtime - Can increase up to 100mg of trazadone if needed Age Friendly 4M's WHAT MATTERS What Matters was addressed at this visit. Comment: Good health. MEDICATION Medications were addressed at this visit. MENTATION Depression was addressed at this visit. MENTATION Dementia was addressed at this visit. MENTATION Delirium was addressed at this visit. MOBILITY -------- Mobility was addressed at this visit. PREVENTION & HEALTH MAINTENANCE: - We will skip labs today as he will be completing repeat labs at his next iron infusion. Plan to repeat labs at next follow up Life Sustaining Treatment Orders RTC: 1 year /paulino/ DAVIDE EATON [employer] TRAINEE Signed: 07/31/2023 13:01 /paulino/ RICO RASCON MD CHIEF GERIATRICS, PRIMARY CARE Cosigned: 07/31/2023 14:14 07/31/2023 ADDENDUM STATUS: COMPLETED Chart reviewed. Pt. seen, examined and discussed with Davide Eaton([email or web address]). I agree with her, history, physical exam, assessment and plan as outlined above. 87 y.o. cognitively intact, functionally independent M with hx of DMII, HTN, CAD, HLD, OA, CKD, COVID pneumonia in Jun 2020 who was last seen on 09/01/22 is here for routine follow up. Pt. 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 He recently had all labs drawn and brought the paperwork with him. He was referred to hematology due to iron deficiency anemia that was not correcting with oral iron so received IV iron infusion. He stopped taking tramadol becaus he read that it can couse anemia. He is having difficulty sleeping. It takes him two hrs to fall asleep and then he wakes up in two hrs and it again takes another two hours to fall back asleep. He has been alternating melatonin and trazodone and not taking both on the same day so that he would not over dose on meds. His weight is stable. He has not had any falls, recent ED visits or hospitalizations. Outside labs: 07/13/23 - WBC 5.7, Hgb 9.4, Hct 32.9, PLT 193, MCV 70.1, MCH 20.0, MCHC 28.6, Na 139, K 4.4, Cl 106, CO2 26, BUN 17, Cr 1.12, LFTs WNL, Urine Cr 70, Urine Alb 0.2, Alb/Cr ratio 3, Chol 99, HDL 51, TG 58, LDL 35, Total iron 77, TIBC 367, % saturation 21, Ferritin 6.Hgb A1c 6.7% 07/21/23: WBC 8.1, Hgb 10.5, Hct 36.2, PLT 234, Retic 1.42 ALLERGIES/ADR: Patient has answered NKA VITALS: BP: 126/70 (07/31/2023 10:12) Pulse: 72 (07/31/2023 10:12) Temp: 97.6 F [36.4 C] (07/31/2023 10:12) RR: 18 (07/31/2023 10:12) Pain: 0 (07/31/2023 10:12) Weight: Measurement DT WEIGHT LB(KG)[BMI] 07/31/2023 10:12 154(69.85)[25] 09/01/2022 10:05 156.5(70.99)[25] Height: 66.5 in [168.9 cm] (07/31/2023 10:12) PE General: Thin WM in NAD HEENT:NC, AT CV:RRR S1 S2 no murmur Pulm:CTAB, no wheezes or crackles Ext:No LE edema, foot exam documented below Neuro:Alert, Non-focal, able to complete chair stand without assistance Gait: steady gait without an assistive device, TUG - normal speed ASSESSMENT AND PLAN: Iron deficiency anemia: Ferritin down to 6, oral iron not helpful so now getting IV iron infusion. No bleed loss hx. - continue IV iron supplementation per hematology - consider discontinuing oral iron - discontinue B12 and Folate since last levels were high and pt. has still been taking these - follow up with hematology Insomnia - encouraged to take melatonin and trazodone daily - sleep hygiene HTN: Does not monitor bp at home, BP today 126/70 - Continue metoprolol. DMII: Last A1C 6.7% Jun 2023(outside lab reports) - continue metformin and dapagliflozin - continue current meds and recheck A1C and urine micral today Chronic pain/arthritis: no longer taking tramadol - continue Tylenol prn CAD/HLD: no longer on ASA - Continue atorvastatin, Beta aura - follow up with cardiology CKD: stable - Monitor PREVENTION & HEALTH MAINTENANCE: - pt. does not want any vaccines - foot exam cmpleted RTC: 6 months PAVE Foot Check: A complete foot check was completed at this encounter. VISUAL INSPECTION: Includes inspection for skin breaks, deformity, erythema, trauma, pallor on elevation, dependent rubor, nail deformities, extensive callus and pitting edema. Visual exam results: Normal PEDAL PULSES: Includes palpation of dorsalis and posterior tibial pulses and signs/symptoms of vascular compromise like pain, pallor, parasthesia or paralysis. Present (even if diminished) SENSORY CHECK: Includes 10 gram Monofilament (Bradner-Remigio) test of sensation. Intact (Greater than or equal to 80% of sites checked) Abnormal (Less than 80% of sites checked): Intact LOW-RISK LOW RISK FOOT EDUCATION: 1. Advised patient not to walk barefoot. Instructed the patient to pay close attention to the style and fit of shoes. 2. Explained the importance of daily foot checks. Explained that loss of sensation leads to callouses. Callouses break down, which result in ulcers that may lead to gangrene and amputation. 3. Stressed the importance of daily foot hygiene. Warm (not hot) bathing of the feet, complete drying and thorough inspection for changes in the condition of the skin constitute daily foot care. Demonstrated how to do a thorough foot check. 4. Emphasized the use of clean, non-restrictive socks/stockings and well fitting shoes. 5. Stressed the importance of immediate follow-up of any foot injuries or ulcers. Explained that he/she should be non-weight bearing whenever there are lesions on the foot, to prevent cellular damage. Level of Understanding: Good Ischemic HD/Post TX Follow Up: Aspirin is contraindicated for the following reason(s): other reason, documented below possible blood loss anemia Medication Reconciliation Opt STL: I have reviewed the patient's medication list (including active outpatient [facility] and dispensed from another [facility] or [facility] facility (remote) as well as inpatient orders (local pending and active), local clinic medications, locally documented non-VA medications, and local prescriptions that have or been discontinued in the past 90 days.) with the patient and/or his/her care-occasional caregiver. Handwritten corrections, additions and/or deletions were made to the list, as appropriate. Corrected Outpatient Medication List was provided to the patient/caregiver. Active Outpatient Medications (including Supplies): Active Non-VA [...] 50MG BY MOUTH AT ACTIVE BEDTIME NEEDED /herminio RASCON MD CHIEF GERIATRICS, PRIMARY CARE Signed: 07/31/2023 15:58 07/31/2023 ADDENDUM STATUS: COMPLETED Diabetes Hemoglobin A1c: Patient reports outside HGA1c done at a private facility. Location: PCP Date: July 13, 2023 Reported value: 6.7% Result 6.7 /herminio RASCON MD CHIEF GERIATRICS, PRIMARY CARE Signed: 07/31/2023 16:00 08/29/2023 ADDENDUM STATUS: COMPLETED fax received from Dr. Samaria Rosales MD,[facility] According to records, [facility] 07/05/2023. for hypertension f/u.Includes labs and medication list, current immunizations. F/u 2 weeks Will forward to for review and send to [facility]. /es/ Reshma Wolf RN BSN REGISTERED NURSE Signed: 08/29/2023 13:33 Receipt Acknowledged By: * AWAITING SIGNATURE * [facility]ICO [facility] Jul 31, 2023 10:16 AM NURSING NOTE: LOCAL TITLE: V15 PACT FACE TO FACE NOTE STL STANDARD TITLE: NURSING NOTE DATE OF NOTE: JUL 31, 2023@10:16 ENTRY DATE: JUL 31, 2023@10:16:43 AUTHOR: KONRAD FISH COSIGNER: URGENCY: STATUS: COMPLETED Provider Visit: Patient Identifiers : Full Name Date of Reason for visit: Established Follow-Up Mode of Arrival: Ambulatory Allergy Review: Patient has answered NKA Allergy list reviewed and remains current. Recent Vital Signs: Temperature: 97.6 F [36.4 C] (07/31/2023 10:12) Pulse: 72 (07/31/2023 10:12) Respiration: 18 (07/31/2023 10:12) B/P: 126/70 (07/31/2023 10:12) Pain: 0 (07/31/2023 10:12) Wt: 154 lb [69.85 kg] (07/31/2023 10:12) Ht: 66.5 in [168.9 cm] (07/31/2023 10:12) BMI: 24.5 POX: 99% (07/31/2023 10:12) Would you like to discuss any personal problem, family problem, alcohol use, drug use, or a mental or emotional illness? No Contact provided Primary Care phone number and encouraged to call if any questions or concerns. Review that after hours nurse line [phone] and emergency room are available 05/12 for patient use. Contact verbalized good understanding. Alcohol Use Screen (AUDIT-C): Alcohol Screen: SCREEN FOR ALCOHOL (AUDIT-C) An alcohol screening test (AUDIT-C) was negative (score=0). 1. How often did you have a drink containing alcohol in the past year? Consider a drink to be a 12 ounce can or bottle of regular beer, 8 ounces of malt liquor, a 5 ounce glass of table wine, or a 1.5 ounce shot of liquor (like scotch, gin, or vodka). Never 2. How many drinks containing alcohol did you have on a typical day when you were drinking in the past year? Response not required due to responses to other questions. 3. How often did you have six or more drinks on one occasion in the past year? Response not required due to responses to other questions. Frail/Elderly Screen: ADL Screen - Flores Index of [place] in Activities of Daily Living Bathing: (3 Points) Receives no assistance (gets in and out of tub by self, if tub is usual means of bathing) Dressing: (3 Points) Gets clothes and gets completely dressed without assistance. Toileting: (3 Points) Goes to toilet room , cleans self, and arranges clothes without assistance (may use object for support such as cane, walker, or wheelchair, and may manage own night bedpan or commode, emptying same next morning) Transferring: (3 Points) Moves in and out of bed and in and out of chair without assistance (may be using object for support, such as cane or walker) Continence: (3 Points) Controls urination and bowel movement completely by self Feeding: (3 Points) Feeds self without assistance Total Score: 18 Points 18 = High (patient independent) 6 = Low (patient very dependent) IADL Screen - [place] Instrumental Activities of Daily Living Scale Ability to use telephone: (1 point) Operates Telephone on own initiative; looks up and dials numbers. Shopping: (1 point) Takes care of all shopping needs independently. Food preparation: (1 point) Plans, prepares, and serves adequate meals independently. Housekeeping: (1 point) Maintains house alone with occasional assistance (heavy work). Laundry: (1 point) Does personal laundry completely. Mode of transportation: (1 point) Travels independently on public transportation or drives own car. Responsibility for own medications: (1 point) Is responsible for taking medications in correct dosages at correct times. Ability to handle finances: (1 point) Manages financial matters independently (budgets, writes checks, pays rent and bills, goes to bank); collects and keeps track of income. Total score: 8 points 8 = High function, independent 0 = Low function, dependent Falls Screen: No falls within the past 12 months. Incontinence Screen No incontinence. Tobacco Use Screening: The patient is a former tobacco user. The patient quit fifteen or more years ago. /paulino/ LEONARD Quezada Licensed Practical Nurse Signed: 07/31/2023 10:21 Receipt Acknowledged By: 07/31/2023 16:30 /paulino/ RICO RASCON MD CHIEF GERIATRICS, PRIMARY CARE KONRAD FISH [facility]
--- OUTSIDE RECORDS SUMMARY | 2024-06-26 12:23 | XMS_ITS | Continuity of Care Document ---
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 It does not include entries that were removed or entered in error. Problem Status Onset Date Problem Type Date of Resolution Comments Source Benign prostatic hyperplasia Active Condition [facility] CAD - Coronary Artery Disease ([facility] [id number]) Active Condition [facility] Chronic Kidney Disease Stage 3 ([facility] [id number]) Active Condition [facility] Diabetes Mellitus Type 2 ([facility] [id number]) Active Condition [facility] Erectile dysfunction Active Condition [facility] HTN - Hypertension ([facility] [id number]) Active Condition [facility] Hyperlipidemia ([facility] [id number]) Active Condition [facility] Iron deficiency anemia Active Condition [facility] OA - Osteoarthritis ([facility] [id number]) Active Condition Jan 30, 2019 Entered By: AMANDA ADKINS Comment: Knee [facility] 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 Condition [facility] Diagnosis: ICD-10-CM H90.3 Sensorineural hearing loss, bilateral Active Diagnosis [facility] Diagnosis: ICD-10-CM E11.9 Type 2 diabetes mellitus without complications Active Diagnosis [facility] Diagnosis: ICD-10-CM I10 Essential (primary) hypertension Active Diagnosis [facility] Medications Combined list of outpatient medications from [facility] and [facility] facilities.Medications provided include 1) outpatient medications from the last 15 months, and 2) patient-reported medications. Medication Details Route Status Patient Instructions Prescription Expires Prescription Number Last Dispense Date Ordering Provider Order Date Order Qty Source ACETAMINOPH EN 500MG TAB TAKE ONE TABLET BY MOUTH EVERY EIGHT(8) HOURS NEEDED ORAL ACTIVE AUGUSTINA COELHO 2020 [facility] ASCORBIC ACID 500MG TAB TAKE ONE TABLET BY MOUTH ONCE A DAY ORAL ACTIVE RASCON,ROSALBA AM M 2023 [facility] ASPIRIN 81MG TAB,EC TAKE ONE TABLET BY MOUTH EVERY OTHER DAY ON ODD DAYS ORAL ACTIVE RASCON,ROSALBA AM M 2023 [facility] ATORVASTATI N CA 80MG TAB TAKE ONE-HALF TABLET BY MOUTH EVERY EVENING ORAL ACTIVE ANTI,ROBIN L A 2018 [facility] CHOLECALCIF YOSHI 50MCG (2,000UNIT) TAB TAKE ONE TABLET BY MOUTH ONCE A DAY ORAL ACTIVE RASCON,ROSALBA AM M 2020 [facility] DAPAGLIFLOZ IN 10MG TAB TAKE ONE TABLET BY MOUTH ONCE A DAY ORAL ACTIVE RASCON,ROSALBA AM M 2023 [facility] FOLIC ACID 1MG TAB TAKE ONE TABLET BY MOUTH ONCE A DAY ORAL ACTIVE RASCON,ROSALBA AM M 2023 [facility] METFORMIN HCL 1000MG TAB TAKE ONE TABLET BY MOUTH TWICE A DAY WITH MEALS ORAL ACTIVE ANTI,ROBIN L A 2018 [facility] METOPROLOL SUCCINATE 50MG TAB,SA TAKE ONE-HALF TABLET BY MOUTH ONCE A DAY ORAL ACTIVE RASCON,ROSALBA AM M 2020 [facility] TRAZODONE HCL 100MG TAB TAKE ONE-HALF TABLET BY MOUTH AT BEDTIME NEEDED ORAL ACTIVE AUGUSTINA COELHO A 2020 [facility] Immunizations Combined list of available immunizations from the Department of Defense and Veterans Affairs facilities. 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 Order Name Results Value Reference Range Date Interpretation Specimen Comments Source COMPREHENS TIFFANY METABOLIC PANEL CREATININE [MASS/VOLUM E] IN SERUM OR PLASMA 1.08 mg/dL 0.70 - 1.30 01/29 Specimen Type: PLASMA Comment: No hemolysis noted. Ordering Provider: CLARENCE RASCON Report Released Date/Time: Jan 28, 2024 10:56 AM Reporting Lab: [facility] [place] [address] Performing Lab: [facility] DIVISION COMPREHENS TIFFANY METABOLIC PANEL UREA NITROGEN [MASS/VOLUM E] IN SERUM OR PLASMA 16.1 mg/dL 9.0 - 25.0 01/29 Specimen Type: PLASMA Comment: No hemolysis noted. Ordering Provider: CLARENCE RASCON Report Released Date/Time: Jan 28, 2024 10:56 AM Reporting Lab: [facility] [place] [address] Performing Lab: [facility] DIVISION COMPREHENS TIFFANY METABOLIC PANEL GLUCOSE [MASS/VOLUM E] IN SERUM OR PLASMA 128 mg/dL 72 - 99 01/29 H Specimen Type: PLASMA Comment: No hemolysis noted. Ordering Provider: CLARENCE RASCON Report Released Date/Time: Jan 28, 2024 10:56 AM Reporting Lab: [facility] [place] [address] Performing Lab: [facility] [phone] [address] DIVISION COMPREHENS TIFFANY METABOLIC PANEL SODIUM [MOLES/VOLU ME] IN SERUM OR PLASMA 140 meq/L 136 - 145 01/29 Specimen Type: PLASMA Comment: No hemolysis noted. Ordering Provider: CLARENCE RASCON Report Released Date/Time: Jan 28, 2024 10:56 AM Reporting Lab: [facility] [place] [address] Performing Lab: [facility] [id number] DIVISION COMPREHENS TIFFANY METABOLIC PANEL POTASSIUM [MOLES/VOLU ME] IN SERUM OR PLASMA 4.4 meq/L 3.5 - 5.0 01/29 Specimen Type: PLASMA Comment: No hemolysis noted. Ordering Provider: CLARENCE RASCON Report Released Date/Time: Jan 28, 2024 10:56 AM Reporting Lab: [facility] [id number] Performing Lab: [facility] [id number] DIVISION COMPREHENS TIFFANY METABOLIC PANEL CHLORIDE [MOLES/VOLU ME] IN SERUM OR PLASMA 109 meq/L 98 - 107 01/29 H Specimen Type: PLASMA Comment: No hemolysis noted. Ordering Provider: CLARENCE RASCON Report Released Date/Time: Jan 28, 2024 10:56 AM Reporting Lab: [facility] [phone] Performing Lab: [facility] [phone] [place] [address] DIVISION COMPREHENS TIFFANY METABOLIC PANEL CARBON DIOXIDE, TOTAL [MOLES/VOLU ME] IN SERUM OR PLASMA 22 meq/L 22 - 31 01/29 Specimen Type: PLASMA Comment: No hemolysis noted. Ordering Provider: CLARENCE RASCON Report Released Date/Time: Jan 28, 2024 10:56 AM Reporting Lab: [facility] [place] [address] Performing Lab: [facility] DIVISION COMPREHENS TIFFANY METABOLIC PANEL CALCIUM [MASS/VOLUM E] IN SERUM OR PLASMA 9.8 mg/dL 8.4 - 10.4 01/29 Specimen Type: PLASMA Comment: No hemolysis noted. Ordering Provider: CLARENCE RASCON Report Released Date/Time: Jan 28, 2024 10:56 AM Reporting Lab: [facility] [place] [address] Performing Lab: [facility] DIVISION COMPREHENS TIFFANY METABOLIC PANEL PROTEIN [MASS/VOLUM E] IN SERUM OR PLASMA 6.6 g/dL 6.0 - 8.6 01/29 Specimen Type: PLASMA Comment: No hemolysis noted. Ordering Provider: CLARENCE RASCON Report Released Date/Time: Jan 28, 2024 10:56 AM Reporting Lab: [facility] [place] [address] Performing Lab: [facility] DIVISION COMPREHENS TIFFANY METABOLIC PANEL ALBUMIN [MASS/VOLUM E] IN SERUM OR PLASMA 4.4 g/dL 3.4 - 5.0 01/29 Specimen Type: PLASMA Comment: No hemolysis noted. Ordering Provider: CLARENCE RASCON Report Released Date/Time: Jan 28, 2024 10:56 AM Reporting Lab: [facility] [place] [address] Performing Lab: [facility] DIVISION COMPREHENS TIFFANY METABOLIC PANEL BILIRUBIN.T OTAL [MASS/VOLUM E] IN SERUM OR PLASMA 0.9 mg/dL 0.2 - 1.2 01/29 Specimen Type: PLASMA Comment: No hemolysis noted. Ordering Provider: CLARENCE RASCON Report Released Date/Time: Jan 28, 2024 10:56 AM Reporting Lab: [facility] [place] [address] Performing Lab: [facility] DIVISION COMPREHENS TIFFANY METABOLIC PANEL ALKALINE PHOSPHATASE [ENZYMATIC ACTIVITY/VO LUME] IN SERUM OR PLASMA 71 U/L 40 - 150 01/29 Specimen Type: PLASMA Comment: No hemolysis noted. Ordering Provider: CLARENCE RASCON Report Released Date/Time: Jan 28, 2024 10:56 AM Reporting Lab: [facility] [place] [address] Performing Lab: [facility] DIVISION COMPREHENS TIFFANY METABOLIC PANEL ASPARTATE AMINOTRANSF ERASE [ENZYMATIC ACTIVITY/VO LUME] IN SERUM OR PLASMA 17 U/L 5 - 34 01/29 Specimen Type: PLASMA Comment: No hemolysis noted. Ordering Provider: CLARENCE RASCON Report Released Date/Time: Jan 28, 2024 10:56 AM Reporting Lab: [facility] [place] [address] Performing Lab: [facility] DIVISION COMPREHENS TIFFANY METABOLIC PANEL ALANINE AMINOTRANSF ERASE [ENZYMATIC ACTIVITY/VO LUME] IN SERUM OR PLASMA 16 U/L 8 - 40 01/29 Specimen Type: PLASMA Comment: No hemolysis noted. Ordering Provider: CLARENCE RASCON Report Released Date/Time: Jan 28, 2024 10:56 AM Reporting Lab: [facility] [place] [address] Performing Lab: [facility] DIVISION COMPREHENS TIFFANY METABOLIC PANEL GLOMERULAR FILTRATION RATE/1.73 SQ M.PREDICTED [VOLUME RATE/AREA] IN SERUM, PLASMA OR BLOOD BY CREATININE- BASED FORMULA (CKD-EPI 2020) 66.42 60 01/29 Specimen Type: PLASMA Comment: No hemolysis noted. Ordering Provider: CLARENCE RASCON Report Released Date/Time: Jan 28, 2024 10:56 AM Reporting Lab: [facility] [place] [address] Performing Lab: [facility] CBC LEUKOCYTES [#/VOLUME] IN BLOOD BY AUTOMATED COUNT 6.5 10*3/u L 3.6 - 11.2 01/29 Specimen Type: BLOOD No comment entered. Ordering Provider: CLARENCE RASCON Report Released Date/Time: Jan 28, 2024 10:56 AM Reporting Lab: [facility] [place] [address] Performing Lab: [facility] DIVISION CBC ERYTHROCYTE S [#/VOLUME] IN BLOOD BY AUTOMATED COUNT 4.69 10*6/u L 4.10 - 5.70 01/29 Specimen Type: BLOOD No comment entered. Ordering Provider: CLARENCE RASCON Report Released Date/Time: Jan 28, 2024 10:56 AM Reporting Lab: [facility] [place] [address] Performing Lab: [facility] CBC HEMOGLOBIN [MASS/VOLUM E] IN BLOOD 14.1 g/dL 13.1 - 16.8 01/29 Specimen Type: BLOOD No comment entered. Ordering Provider: CLARENCE RASCON Report Released Date/Time: Jan 28, 2024 10:56 AM Reporting Lab: [facility] [place] [phone] Performing Lab: [facility] DIVISION CBC HEMATOCRIT [VOLUME FRACTION] OF BLOOD 41.6 38.2 - 48.4 01/29 Specimen Type: BLOOD No comment entered. Ordering Provider: CLARENCE RASCON Report Released Date/Time: Jan 28, 2024 10:56 AM Reporting Lab: [facility] [place] [address] Performing Lab: [facility] DIVISION CBC MCV [ENTITIC VOLUME] BY AUTOMATED COUNT 88.7 fL 80.0 - 100.0 01/29 Specimen Type: BLOOD No comment entered. Ordering Provider: CLARENCE RASOCN Report Released Date/Time: Jan 28, 2024 10:56 AM Reporting Lab: [facility] [place] [address] Performing Lab: [facility] DIVISION CBC MCH [ENTITIC MASS] BY AUTOMATED COUNT 30.1 pg 27.0 - 34.0 01/29 Specimen Type: BLOOD No comment entered. Ordering Provider: CLARENCE RASCON Report Released Date/Time: Jan 28, 2024 10:56 AM Reporting Lab: [facility] [place] [address] Performing Lab: [facility] DIVISION CBC MCHC [MASS/VOLUM E] BY AUTOMATED COUNT 33.9 g/dL 33.0 - 36.0 01/29 Specimen Type: BLOOD No comment entered. Ordering Provider: CLARENCE RASCON Report Released Date/Time: Jan 28, 2024 10:56 AM Reporting Lab: [facility] [place] [phone] Performing Lab: [facility] [place] [phone] DIVISION CBC PLATELETS [#/VOLUME] IN BLOOD BY AUTOMATED COUNT 179 10*3/u L 150 - 400 01/29 Specimen Type: BLOOD No comment entered. Ordering Provider: CLARENCE RASCON Report Released Date/Time: Jan 28, 2024 10:56 AM Reporting Lab: [facility] [place] [address] Performing Lab: [facility] DIVISION CBC PLATELET MEAN VOLUME [ENTITIC VOLUME] IN BLOOD BY AUTOMATED COUNT 8.4 fL 7.5 - 11.2 01/29 Specimen Type: BLOOD No comment entered. Ordering Provider: CLARENCE RASCON Report Released Date/Time: Jan 28, 2024 10:56 AM Reporting Lab: [facility] [place] [address] Performing Lab: [facility] DIVISION CBC ERYTHROCYTE DISTRIBUTIO N WIDTH [RATIO] BY AUTOMATED COUNT 12.9 11.8 - 15.1 01/29 Specimen Type: BLOOD No comment entered. Ordering Provider: CLARENCE RASCON Report Released Date/Time: Jan 28, 2024 10:56 AM Reporting Lab: [facility] [place] [address] Performing Lab: [facility] DIVISION CBC LYMPHOCYTES /100 LEUKOCYTES IN BLOOD BY AUTOMATED COUNT 22 01/29 Specimen Type: BLOOD No comment entered. Ordering Provider: CLARENCE RASCON Report Released Date/Time: Jan 28, 2024 10:56 AM Reporting Lab: [facility] [id number] Performing Lab: [facility] DIVISION CBC MONOCYTES/1 00 LEUKOCYTES IN BLOOD BY AUTOMATED COUNT 9 01/29 Specimen Type: BLOOD No comment entered. Ordering Provider: CLARENCE RASCON Report Released Date/Time: Jan 28, 2024 10:56 AM Reporting Lab: [facility] [place] [address] Performing Lab: [facility] DIVISION CBC NEUTROPHILS /100 LEUKOCYTES IN BLOOD BY AUTOMATED COUNT 66 01/29 Specimen Type: BLOOD No comment entered. Ordering Provider: CLARENCE RASCON Report Released Date/Time: Jan 28, 2024 10:56 AM Reporting Lab: [facility] [place] [address] Performing Lab: [facility] DIVISION CBC EOSINOPHILS /100 LEUKOCYTES IN BLOOD BY AUTOMATED COUNT 2 01/29 Specimen Type: BLOOD No comment entered. Ordering Provider: CLARENCE RASCON Report Released Date/Time: Jan 28, 2024 10:56 AM Reporting Lab: [facility] [place] [address] Performing Lab: [facility] [phone] DIVISION CBC BASOPHILS/1 00 LEUKOCYTES IN BLOOD BY AUTOMATED COUNT 1 01/29 Specimen Type: BLOOD No comment entered. Ordering Provider: CLARENCE RASCON Report Released Date/Time: Jan 28, 2024 10:56 AM Reporting Lab: [facility] [place] [address] Performing Lab: [facility] [place] [phone] DIVISION CBC LYMPHOCYTES [#/VOLUME] IN BLOOD BY AUTOMATED COUNT 1.44 10*3/u L 0.77 - 4.50 01/29 Specimen Type: BLOOD No comment entered. Ordering Provider: CLARENCE RASCON Report Released Date/Time: Jan 28, 2024 10:56 AM Reporting Lab: [facility] [place] [address] Performing Lab: [facility] CBC MONOCYTES [#/VOLUME] IN BLOOD BY AUTOMATED COUNT 0.57 10*3/u L 0.19 - 0.80 01/29 Specimen Type: BLOOD No comment entered. Ordering Provider: CLARENCE RASCON Report Released Date/Time: Jan 28, 2024 10:56 AM Reporting Lab: [facility] [place] [address] Performing Lab: [facility] DIVISION CBC NEUTROPHILS [#/VOLUME] IN BLOOD BY AUTOMATED COUNT 4.33 10*3/u L 2.10 - 8.00 01/29 Specimen Type: BLOOD No comment entered. Ordering Provider: CLARENCE RASCON Report Released Date/Time: Jan 28, 2024 10:56 AM Reporting Lab: [facility] [place] [address] Performing Lab: [facility] DIVISION CBC EOSINOPHILS [#/VOLUME] IN BLOOD BY AUTOMATED COUNT 0.13 10*3/u L 0.00 - 0.60 01/29 Specimen Type: BLOOD No comment entered. Ordering Provider: CLARENCE RASCON Report Released Date/Time: Jan 28, 2024 10:56 AM Reporting Lab: [facility] [place] [phone] Performing Lab: [facility] DIVISION CBC BASOPHILS [#/VOLUME] IN BLOOD BY AUTOMATED COUNT 0.04 10*3/u L 0.00 - 0.20 01/29 Specimen Type: BLOOD No comment entered. Ordering Provider: CLARENCE RASCON Report Released Date/Time: Jan 28, 2024 10:56 AM Reporting Lab: [facility] [place] [address] Performing Lab: [facility] HGA1C HEMOGLOBIN A1C/HEMOGLO BIN.TOTAL IN BLOOD 6.6 4.0 - 6.0 01/29 H Specimen Type: BLOOD No comment entered. Ordering Provider: CLARENCE RASCON Report Released Date/Time: Jan 28, 2024 10:56 AM Reporting Lab: [facility] [place] [address] Performing Lab: [facility] DIVISION LIPID PANEL (STL) CHOLESTEROL [MASS/VOLUM E] IN SERUM OR PLASMA 112 mg/dL 0 - 200 01/29 Specimen Type: PLASMA Comment: No hemolysis noted. Ordering Provider: CLARENCE RASCON Report Released Date/Time: Jan 28, 2024 10:56 AM Reporting Lab: [facility] [place] [address] Performing Lab: [facility] DIVISION LIPID PANEL (STL) TRIGLYCERID E [MASS/VOLUM E] IN SERUM OR PLASMA 61 mg/dL 0 - 150 01/29 Specimen Type: PLASMA Comment: No hemolysis noted. Ordering Provider: CLARENCE RASCON Report Released Date/Time: Jan 28, 2024 10:56 AM Reporting Lab: [facility] [place] [address] Performing Lab: [facility] DIVISION LIPID PANEL (STL) CHOLESTEROL IN LDL [MASS/VOLUM E] IN SERUM OR PLASMA BY CALCULATION 57 mg/dL 01/29 Specimen Type: PLASMA Comment: No hemolysis noted. Ordering Provider: CLARENCE RASCON Report Released Date/Time: Jan 28, 2024 10:56 AM Reporting Lab: [facility] [place] [address] Performing Lab: [facility] LIPID PANEL (STL) CHOLESTEROL IN HDL [MASS/VOLUM E] IN SERUM OR PLASMA 43 mg/dL 40 01/29 Specimen Type: PLASMA Comment: No hemolysis noted. Ordering Provider: CLARENCE RASCON Report Released Date/Time: Jan 28, 2024 10:56 AM Reporting Lab: [facility] [place] [address] Performing Lab: [facility] DIVISION B12 COBALAMIN (VITAMIN B12) [MASS/VOLUM E] IN SERUM OR PLASMA 427 pg/mL 213 - 816 01/29 Specimen Type: SERUM No comment entered. Ordering Provider: CLARENCE RASCON Report Released Date/Time: Jan 28, 2024 10:56 AM Reporting Lab: [facility] [place] [address] Performing Lab: [facility] DIVISION FOLATE (STL-MA) FOLATE [MASS/VOLUM E] IN SERUM OR PLASMA 16.8 ng/mL 7 - 20 01/29 Specimen Type: SERUM No comment entered. Ordering Provider: CLARENCE RASCON Report Released Date/Time: Jan 28, 2024 10:56 AM Reporting Lab: [facility] [place] [address] Performing Lab: [facility] [id number] DIVISION VITAMIN D, 25-HYDROXY 25-HYDROXYV ITAMIN D3 [MASS/VOLUM E] IN SERUM OR PLASMA 62.4 ng/mL 30 - 96 01/29 Specimen Type: SERUM No comment entered. Ordering Provider: CLARENCE RASCON Report Released Date/Time: Jan 28, 2024 10:56 AM Reporting Lab: [facility] [place] [address] Performing Lab: [facility] [address] DIVISION FERRITIN FERRITIN [MASS/VOLUM E] IN SERUM OR PLASMA 46.97 ng/mL 22 - 275 01/29 Specimen Type: SERUM No comment entered. Ordering Provider: CLARENCE RASCON Report Released Date/Time: Jan 28, 2024 10:56 AM Reporting Lab: [facility] [address] [place] [address] Performing Lab: [place] [id number] [place] [address] DIVISION TSH (MA-PB) THYROTROPIN [UNITS/VOLU ME] IN SERUM OR PLASMA 0.767 u[IU]/ mL 0.470 - 5.000 01/29 Specimen Type: SERUM No comment entered. Ordering Provider: CLARENCE RASCON Report Released Date/Time: Jan 28, 2024 10:56 AM Reporting Lab: [facility] [place] [address] Performing Lab: [facility] DIVISION MICRAL/CRE AT PROFILE (STL) ALBUMIN [MASS/VOLUM E] IN URINE 5 mg/dL 09/01 Specimen Type: URINE No comment entered. Ordering Provider: CLARENCE RASCON Report Released Date/Time: Aug 28, 2022 08:27 PM Reporting Lab: [facility] [place] [address] Performing Lab: [facility] DIVISION MICRAL/CRE AT PROFILE (STL) ALBUMIN/CRE ATININE [MASS RATIO] IN URINE 7 ug/mg 0 - 20 09/01 Specimen Type: URINE No comment entered. Ordering Provider: CLARENCE RASCON Report Released Date/Time: Aug 28, 2022 08:27 PM Reporting Lab: [facility] [place] [address] Performing Lab: [facility] [place] [phone] DIVISION MICRAL/CRE AT PROFILE (STL) CREATININE [MASS/VOLUM E] IN URINE 69.3 mg/dL 63.0 - 166.0 09/01 Specimen Type: URINE No comment entered. Ordering Provider: CLARENCE RASCON Report Released Date/Time: Aug 28, 2022 08:27 PM Reporting Lab: [facility] [place] [address] Performing Lab: [facility] Vital Signs Combined list of inpatient and outpatient Vital Signs from Department of Defense and Veterans Affairs, ranging from 12 months to all on record, depending upon the facility. Vital Sign Value Date Comments Source SYSTOLIC BLOOD PRESSURE 126 01/30/2024 10:02:21 [facility] DIASTOLIC BLOOD PRESSURE 65 01/30/2024 10:02:21 [facility] PULSE OXIMETRY 98 01/30/2024 10:02:[address] [facility] WEIGHT 150 01/30/2024 10:02:21 [facility] BMI 24 kg/m2 01/30/2024 10:02:21 [facility] PAIN 0 01/30/2024 10:02:21 [facility] HEIGHT 67 01/30/2024 10:02:21 [facility] TEMPERATURE 98.5 01/30/2024 10:02:21 [facility] PULSE 59 01/30/2024 10:02:21 [facility] RESPIRATION 18 01/30/2024 10:02:21 [facility] SYSTOLIC BLOOD PRESSURE 138 07/31/2023 10:12:45 [facility] DIASTOLIC BLOOD PRESSURE 71 07/31/2023 10:12:45 [facility] PULSE OXIMETRY 99 07/31/2023 10:12:45 [facility] WEIGHT 154 07/31/2023 10:12:45 [facility] BMI 25 kg/m2 07/31/2023 10:12:45 [facility] PAIN 0 07/31/2023 10:12:45 [facility] HEIGHT 66.5 07/31/2023 10:12:45 [facility] TEMPERATURE 97.6 07/31/2023 10:12:45 [facility] PULSE 72 07/31/2023 10:12:45 [facility] RESPIRATION 18 07/31/2023 10:12:45 [facility] Encounters Combined list of: 1) Encounters from Department of Veterans Affairs facilities going backup to the last 18 months, not all VA inpatient encounters are included; 2) Encounters from the Department of Defense facilities going backup to 280 months. Location Location Details Encounter Type Encounter Number Reason For Visit Attending Provider ADM Date DC Date Status Disposition Source [facility] Outpatient Encounter [id number] [facility] Outpatient Encounter [id number] DELMAR WOLF N 07/[address] [facility] Outpatient Encounter [id number] 07/24 [facility] OFFICE O/P EST MOD 30 MIN [id number] Diagnos is: ICD-10- CM I10 Essenti al (primar y) hyperte nsCLARENCE Monaco 07/30 [facility] Outpatient Encounter [id number] 08/13 [facility] Outpatient Encounter [id number] 08/27 [facility] Outpatient Encounter [id number] 09/28 [facility] Outpatient Encounter [id number] BISHOP ROSE 01/21 [facility] Outpatient Encounter [id number] Kierra FISH 01/22 [facility] OFFICE O/P EST MOD 30 MIN [id number] Diagnos is: ICD-10- CM E11.9 Type 2 diabete s mellitu s without complic atCLARENCE Geronimo 01/29 [facility] Outpatient Encounter [id number] BISHOP ROSE 03/20 [facility] HEARING AID EXAM BOTH EARS [id number] Diagnos is: ICD-10- CM H90.3 Sensori neural hearing loss, bilater GISELA Reaves 04/01 [facility] Social History Combined list of available smoking, tobacco, and other social history from Department of Defense and [facility] facilities. Social History Type Response Date Comment Sourc e Tobacco smoking status NHIS VA-TOBACCO FORMER USER 07/31/2023 [facility] History of tobacco use [place]-TOBACCO QUIT 1 5 YRS OR MORE 07/31/2023 [facility] History of tobacco use VA-TOBACCO FORMER USER 02/25/2022 [facility] History of tobacco use [place]-TOBACCO QUIT 1 5 YRS OR MORE 03/03/2021 [facility] History of tobacco use [place]-TO[place]ACCO FORMER USER 09/07/2020 [facility] History of tobacco use [place]-TOBACCO QUIT 1 5 YRS OR MORE 01/07/2019 [facility] Plan of Care List of future care activities from Department of [facility] facilities. Additional future care activities may be listed in the Assessment and Plan section. Date/Time Care Activity Care Activity Detail Facili ty 06/27/2024 AMBULATORY - SURGERY AMBULATORY - SURGERY [facility] 10/29/2024 AMBULATORY - MEDICINE AMBULATORY - MEDICI NE [facility]
--- OUTSIDE RECORDS SUMMARY | 2024-06-26 12:23 | XMS_ITS | Clinical Summary ---
Author Organization [facility] 2 Address [address] [place] [address] Care Team Providers Care Medical Surgical Tech Name Role Phone Samaria Rosales MD Primary Care Provider [phone] Oleg Watts MD Unavailable [phone] Allergies No known active allergies Medications metFORMIN [...] 06/26/2020 Assessment & Plan (06/26/2020 10:31 AM MATURITY CHECKER): Noted slowly rising d-dimer over last several days with persistent hypoxia and intermittent NSVT on telemetry. CT PE on 06/26 with small subsegmental PE. Likely 2/2 COVID -start apixaban 10 BID x 7 > 5 BID for 3 months -LED to rule out DVT as well Anemia 06/23/2020 Assessment & Plan (06/26/2020 10:29 AM MATURITY CHECKER): Drop in Hgb 11 > 9.9. Possibly 2/2 dilution as WBC drop as well. No S/sx of bleeding -stable at 10 -CTM Assessment & Plan (06/23/2020 10:35 PM MATURITY CHECKER): Drop in Hgb 11 > 9.9. Possibly 2/2 dilution as WBC drop as well. No S/sx of bleeding -CTM Acute hypoxemic respiratory failure due to COVID-19 ([facility]) 06/21/2020 Assessment & Plan (06/26/2020 10:30 AM MATURITY CHECKER): Presented with general malaise and COVID test was positive on 06/12. Due to worsening SOB was on OSH from 06/17 to 06/19. Did not require O2 on discharge and treated with Dexamethasone. On arrival to [facility] ED, SpO2 90% on 4L. CXR with [...] exertion Assessment & Plan (06/23/2020 10:34 PM MATURITY CHECKER): Presented with general malaise and COVID test was positive on 06/12. Due to worsening SOB was on OSH from 2 to 06/19. Did not require O2 on discharge and treated with Dexamethasone. On arrival to [facility] ED, SpO2 90% on 4L. CXR with likely PNA. -now improved to 2L -continue to wean O2 as tolerated -c/w dex (06/17-06/26), remdesivir (06/21-06/25) -discuss CV plasma today, will give patient time to decide overnight -telemetry -precautions per hospital protocol and supportive care Assessment & Plan (06/22/2020 7:32 PM MATURITY CHECKER): - Presented with general malaise and COVID test was positive on 06/12 - Due to worsening SOB was on OSH from 06/17 to 06/19. Treated with Dexamethasone - On [facility] ED, SpO2 90% on 4L. - CXR w/ BL lung opacities. - Labs with leukopenia and increase D dimers (1178), SED rate (61) and CRP (133). - Treatment- Dex (started 06/17) and remdesivir Assessment & Plan (06/21/2020 3:08 PM MATURITY CHECKER): - Presented with general malaise and COVID test was positive on 06/12 - Due to worsening SOB was on OSH from 06/17 to 06/19. Treated with Dexamethasone - On [facility] ED, SpO2 90% on 4L. - CXR w/ BL lung opacities. - Labs with lymphopenia and increase D dimers (1178), SED rate (61) and CRP (133). - Treatment- Dexamethasone (started 06/17) and remdesivir Leucopenia 06/21/2020 Assessment & Plan (06/24/2020 2:20 PM MATURITY CHECKER): Now improving, but lymphopenia persistent, 2/2 COVID - CTM Assessment & Plan (06/23/2020 10:23 PM MATURITY CHECKER): Now improving, but lymphopenia persistent, 2/2 COVID - CTM Assessment & Plan (06/22/2020 7:32 PM MATURITY CHECKER): - Due to COVID - CTM Assessment & Plan (06/21/2020 3:15 PM MATURITY CHECKER): - Due to COVID - CTM High anion gap metabolic acidosis 06/21/2020 Assessment & Plan (06/24/2020 2:21 PM MATURITY CHECKER): AG on admission 17, Lactate up to 3, likely 2/2 Lactic acidosis -AG now resolved, lactate 2.4 > 2.0 Assessment & Plan (06/23/2020 10:25 PM MATURITY CHECKER): AG on admission 17, Lactate up to 3, likely 2/2 Lactic acidosis -AG now resolved, lactate 2.4 -trend lactate to normal Assessment & Plan (06/22/2020 7:31 PM MATURITY CHECKER): - AG 17 on the ED. Lactic acid was 3 - Most likely due to lactic acidosis and possible component of DKI - BGs was controled - Infection treatment as mentioned Assessment & Plan (06/21/2020 3:14 PM MATURITY CHECKER): - Control hyperglycemia - Order lactic acid - IVF - CTM HTN (hypertension) 06/21/2020 Assessment & Plan (06/24/2020 2:20 PM MATURITY CHECKER): - c/w home lisinopril 2.5 mg Assessment & Plan (06/23/2020 10:24 PM MATURITY CHECKER): - c/w home lisinopril 2.5 mg Assessment & Plan (06/22/2020 7:32 PM MATURITY CHECKER): - Continue home lisinopril 2.5 mg Assessment & Plan (06/21/2020 3:15 PM MATURITY CHECKER): - Continue home lisinopril 2.5 mg Steroid-induced hyperglycemia 06/21/2020 Assessment & Plan (06/26/2020 10:28 AM MATURITY CHECKER): A1c 7.4%. Persistently elevated BG on admission, likely 2/2 steroids -BG elevated again overnight Increase to NPH 30 units given with steroids + SSI -will d/c NPH after completed steroids tomorrow Assessment & Plan (06/23/2020 10:22 PM MATURITY CHECKER): A1c 7.4%. Persistently elevated BG on admission, likely 2/2 steroids -uptitrated to NPH 8u q6 with drop in BG down to 62 this AM -decrease back to NPH 6u q8 + SSI Assessment & Plan (06/21/2020 4:48 PM MATURITY CHECKER): - Due to steroid - At the moment patient may need IV insulin (mild AG). If AG close, recommend to start NPH 5u q 6 hrs and MDSSI - May need higher dose of insulin Assessment & Plan (06/21/2020 3:16 PM MATURITY CHECKER): - Due to steroid - For now MDSSI - May need higher dose of insulin COVID-19 06/15/2020 Pain in joint of left shoulder 03/20/2019 Stage 3 chronic kidney disease 03/12/2018 Assessment & Plan (06/24/2020 2:20 PM MATURITY CHECKER): Prior to admission appeared baseline Cr 1.1 -s/p IVF -now improved to b/l ~0.8-0.9 -CTM Assessment & Plan (06/23/2020 10:23 PM MATURITY CHECKER): Prior to admission appeared baseline Cr 1.1 -s/p IVF -now improved to b/l ~0.8 -CTM Assessment & Plan (06/22/2020 7:33 PM MATURITY CHECKER): - BL Cr 1.1 - IVF Assessment & Plan (06/21/2020 3:11 PM MATURITY CHECKER): - BL Cr 1.1 - IVF Osteoarthritis of knee 03/12/2018 Benign hypertension 01/29/2018 Assessment & Plan (06/22/2020 7:26 PM MATURITY CHECKER): - Continue lisinopril 2.5 mg Assessment & Plan (06/21/2020 3:08 PM MATURITY CHECKER): - Continue lisinopril 2.5 mg Coronary arteriosclerosis 01/29/2018 Assessment & Plan (06/24/2020 2:21 PM MATURITY CHECKER): - ASA 81 mg and atorvastatin 40 qd Assessment & Plan (06/23/2020 10:31 PM MATURITY CHECKER): - ASA 81 mg and atorvastatin 40 qd Assessment & Plan (06/22/2020 7:28 PM MATURITY CHECKER): - ASA 81 mg and statin Assessment & Plan (06/21/2020 3:11 PM MATURITY CHECKER): - ASA 81 mg and statin Diabetes mellitus 01/29/2018 Assessment & Plan (06/26/2020 10:29 AM MATURITY CHECKER): A1c 7.4%. Home Metformin 1000 BID + farxiga 5 every day -hold home meds -c/w NPH 30 with dex + SSI as elsewhere due to steroids, but will d/c back on home meds Assessment & Plan (06/23/2020 10:28 PM MATURITY CHECKER): A1c 7.4%. Home Metformin 1000 BID + farxiga 5 every day -hold home meds -c/w NPH 6 q8 + SSI as elsewhere due to steroids Assessment & Plan (06/22/2020 7:32 PM MATURITY CHECKER): - A1c 6.7 - Hold home metformin - May need IV insulin at the moment (BGs 300 and AG 17) - NPH 8u q 6 hrs and MDSSI - Most likely patient will need higher insulin due to steroid Assessment & Plan (06/21/2020 3:13 PM MATURITY CHECKER): - A1c 6.7 - Hold home metformin - Start SSI - Most likely patient will need higher insulin due to steroid Hyperlipidemia 01/29/2018 Assessment & Plan (06/24/2020 2:20 PM MATURITY CHECKER): - c/w atorvastatin 40 mg Assessment & Plan (06/23/2020 10:24 PM MATURITY CHECKER): - c/w atorvastatin 40 mg Assessment & Plan (06/22/2020 7:32 PM MATURITY CHECKER): - atorvastatin 40 mg Assessment & Plan (06/21/2020 3:15 PM MATURITY CHECKER): - atorvastatin 40 mg Primary erectile dysfunction 01/29/2018 Carotid atherosclerosis 02/09/2017 Essential hypertension 11/02/2012 Resolved Problems Problem Noted Date Diagnosed Date Resolved Date SIRS (systemic inflammatory response syndrome) 06/22/2020 06/22/2020 Pneumonia due to COVID-19 virus 06/21/2020 06/21/2020 Carotid bruit 10/22/2012 06/21/2020 Surgical History Surgery Date Site/Laterality Comments KNEE SURGERY Bilateral ANGIOPLASTY 05/15/1992 - 05/14/1993 no stents JOINT REPLACEMENT Bilateral knees Medical History Medical History Date Comments Diabetes mellitus (HCC) Hypertension High cholesterol Myocardial infarction (HCC) 1992 Type 2 diabetes mellitus (HCC) Arthritis Family History Medical History Relation Name Comments No Known Problems Father Breast cancer Mother Relation Name Status Comments Father Mother Social History Tobacco Use Types Packs/Day Years [...] on file Legal Sex Male 3:16 AM MATURITY CHECKER Gender Identity Not on file Sexual Orientation Not on file Obstetrics History Last Filed Vital Signs Vital Sign Reading [...] Height 170.2 cm (5' 7 ) 02/19/2024 2:0 7 PM CDT Body Mass Index 23.62 02/19/2024 2:07 PM CDT Plan of Treatment Health Maintenance Due Date Last Done Comments Albumin Creatinine Ratio, Urine 1935 Depression Screening 1935 Dilated Eye Exam 1936 Foot Exam 1936 DTaP/Tdap/Td Vaccine (1 - Tdap) 08/27/1947 Hepatitis B Screening 1954 Zoster Vaccine (1 of 2) 1986 Well Visit 65+ 2001 Lipid Panel 06/21/2021 06/21/2020, 02/0 08/2020, 02/07/2018 Influenza Vaccine (#1) 2024 Hemoglobin A1C 06/14/2024 12/13/2023, 02/0 11/2020, 06/18/2020 Fall Risk Assessment 12/12/2024 12/13/2023 eGFR 12/12/2024 12/13/2023, 02/07/2018 Pneumococcal vaccine 65+ Completed 017, 02/10/2016, 09/24/2004 Medical Devices Implanted Type Area Furniture Refinisher Device Identifier Shelf Expiration Date Model / Serial / Lot [employer]/C R Bard Mesh Surgical Mid Anatomical Synthetic Patch 3dmax 5x7in [id number] - [id number] Implanted:Qty: 1 on 12/19/2023 by Oleg Watts MD at [facility] Mesh Right: Abdomen [employer] Bard [id number] 07/12/2028 [id number] / / [id number] Bilateral Knee Replacement Bilateral: Knee Procedures Procedure Name Priority Date/Time Associated Diagnosis Comments EGFR Routine 12/13/2023 10:52 AM CDT Preop testing HEMOGLOBIN A1C Routine 12/13/2023 10:52 AM CDT Pre-op testing Encounter for screening for diabetes mellitus LIPID PANEL STAT 06/21/2020 10:46 AM MATURITY CHECKER from Last 3 Months or Most Recently [...] 2 AM CDT 12/13/2023 11:01 AM CDT us Vita Keller NP LAB BLOOD ORDERABLES Final Result [facility] [address] [facility] Department [place] [address] * (ABNORMAL) Hemoglobin A1c (12/13/2023 10:52 AM CDT) Hgb A1C 8.1(H) 4.0 - 5.6 % [facility] Estimated Average Glucose 186 mg/dL [facility] SMITH Comment: The ADA recommends reporting an estimated Average Glucose (eAG) with all Hemoglobin A1c results using the equation derived from a study of 507 normal and diabetic adults. Minority populations were underrepresented and children were not included. (Diabetes Care 31:3793-9187, 2008). The eAG is not equivalent to a fasting glucose. Blood 12/13/2023 10:5 2 AM CDT 12/13/2023 11:01 AM CDT us Vita Keller NP LAB BLOOD ORDERABLES Final Result [facility] [address] [facility] Department [place] [address] * (ABNORMAL) Lipid panel (06/21/2020 10:46 AM MATURITY CHECKER) Cholesterol 86 30 - 199 mg/dL [facility] Comment: Interpretive Data Ages < or = [...] revised on 2018. Triglycerides 119 <=149 mg/dL [facility] Comment: Interpretive Data Ages < or = [...] revised on 2018. HDL 36(L) >=40 mg/dL [facility] Comment: Interpretive Data Ages < or = [...] on 2018. LDL, calculated 26 <=129 mg/dL [facility] Comment: Interpretive Data Ages < or = [...] revised on 2018. Non-HDL Cholesterol 50 mg/dL [facility] Comment: Interpretive Data Ages < or = [...] revised on 2018. Chol/HDL ratio 2 [facility] Blood specimen (specimen) 06/21/2020 10:46 AM MATURITY CHECKER 06/21/2020 10:52 AM MATURITY CHECKER us Stan Pedroza MD LAB BLOOD ORDERABLES Nida alvares Result [facility] Department [place] [address] from Last 3 Months or Most Recently Relevant to Health Maintenance Insurance [facility] MEDICARE [facility] MEDICARE [facility] ACCESS MEDICARE [facility] MEDICARE [facility] Advance Directives For more information, please contact: [phone] * Full Code (Latest Code Status on File) Date Activated Date Inactivated Comments 06/21/2020 7:01 PM 06/26/2020 8:39 PM Care Teams Medical Surgical Tech Relationship Specialty Start Date End Date Samaria Rosales MD [address] [facility] [address] [place] [address] PCP - General 01/12/17 Oleg Watts MD [address] [place] [id number] Consulting Physician General Surgery 12/19/23
--- OUTSIDE RECORDS SUMMARY | 2024-06-26 12:23 | XMS_ITS | Clinical Summary ---
Author Organization [facility] Address [address], [facility] [address] [place] [address] Phone Care Team Providers Care Pond Tender Name Role Phone Samaria Rosales MD Primary Care Provider Matthew Walter MD Unavailable [phone] Allergies No known active allergies Medications metFORMIN (GLUCOPHAGE) 1000 MG Tablet Take 1,000 mg by mouth 2 times daily. 4 Active atorvastatin (LIPITOR) 40 MG Tablet Take 40 mg by mouth nightly. 4 Active aspirin EC 81 MG Tablet Delayed Response 81 mg. 1 Active ascorbic acid 500 MG Tablet Active Farxiga 5 MG Tablet Take 1 Tablet by mouth every morning. 4 Active metoprolol Succinate (TOPROL-XL) 25 MG TABLET SR 24 HR Take 12.5 mg by mouth daily. 4 Active Cyanocobalamin (Vitamin B-12) [address] 1 TABLET BY SUBLINGUAL ROUTE EVERY DAY 3 Active traMADol (ULTRAM) 50 MG Tablet 2 times daily. 4 Active folic acid (FOLVITE) 1 MG Tablet Take 1,000 mcg by mouth daily. 4 Active VITAMIN D PO Take by mouth. Ac tive Active Problems Problem Noted Date Diagnosed Date Anemia of unknown etiology 07/21/2023 Family History Medical History Relation Name Comments Heart Attack Father Breast Cancer Mother Relation Name Status Comments Brother Alive Child 1 Alive Child 2 Alive Child 3 Alive Father Mother Sister Social History Tobacco Use Types Packs/Day Years Used Date Smoking Tobacco: Never Smokeless Tobacco: Never Tobacco Cessation:Counseling Given: Not Answered Alcohol Use Standard Drinks/Week Comments Never 0 (1 standard drink = 0.6 oz pur e alcohol) Sex and Gender Information Value Date Recorded Sex Assigned at Not on file Legal Sex Male 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 Gender Identity Not on file Sexual Orientation Not on file Last Filed Vital Signs Vital Sign Reading Time Taken Comments Blood Pressure 130/74 02/02/2024 9:56 AM CDT Pulse 78 02/02/2024 9:56 AM CDT Temperature 36.8 C (98.2 F) 02/02/2024 9:56 AM CDT Respiratory Rate 18 02/02/2024 9:56 AM CDT Oxygen Saturation 97% 02/02/2024 9:56 AM CDT Inhaled Oxygen Concentration - - Weight 68.5 kg (151 lb) 02/02/2024 9:56 AM CDT Height 170.2 cm (5' 7 ) 02/02/2024 9:56 AM CDT Body Mass Index 23.65 02/02/2024 9:56 AM CDT Plan of Treatment Upcoming Encounters Date Type Department Care Team (Late st Contact Info) Description 01/31/2025 10:15 AM CDT Office Visit [facility] [address] [address] Matthew Walter MD [address] [facility] [address] [place] [address] Health Maintenance Due Date Last Done Comments Hepatitis C Virus (HCV) Screening 1935 TdaP Immunization 1935 Zoster Immunization (1 of 2) 1986 Pneumococcal Immunization (50+ years) (2 of 2 - PCV) 09/24/2005 09/24/2004 Respiratory Syncytial Virus (RSV) Immunization (Adult) (1 - 1-dose 75+ series) 08/27/2011 Influenza Immunization (#1) 2024 SARS-COV-2 Immunization ( season) 2024 03/03/2021, 02/12/2021, 08/13/2020, Additional history exists Hepatitis B Immunization Aged Out No longer eligible based on patient's age to complete this topic Meningococcal Immunization (ACWY) Aged Out No longer eligible based on patient's age to complete this topic Rotavirus Immunization Aged Out No lo nger eligible based on patient's age to complete this topic Insurance MEDICARE [facility] Care Teams Pond Tender Relationship Specialty Start Date End Date Samaria Rosales MD [address] [place] [phone] PCP - General Internal Medicine 07/14/23 Matthew Walter MD [address] [place] [phone] Consulting Physician Oncology 07/14/23
== END 2024-06-26 12:01 | disposition home or self-care (01) ==
PROVIDERS: PCP Internal Medicine; Visit Provider Internal Medicine
DX: N40.1 Benign prostatic hyperplasia with lower urinary tract symptoms (principal)
CPT/HCPCS: 76857